=== PATIENT | female | born 1995 | race Caucasian/White ===

== ENCOUNTER 2020-02-22 09:02 | Outpatient (REF) | payer OTHER, MEDICAID, SELFPAY ==
[2020-02-22 10:20] LABS: SARS COV2 PCR INHOUSE NEGATIVE (Negative)
== END 2020-02-22 09:03 | disposition home or self-care (01) ==
LOC: HO.LAB 09:02
PROVIDERS: PCP Family Medicine; Visit Provider Internal Medicine
DX: Z20.828 Contact with and (suspected) exposure to other viral communicable diseases (principal)
CPT/HCPCS: 87635

== ENCOUNTER 2020-05-27 08:18 | Outpatient (REF) | payer OTHER, MEDICAID, SELFPAY ==
[2020-05-27 11:14] LABS: Free T4 (Free Thyroxine) 0.55 ng/dL (0.71-1.85); Thyroid Stimulating Hormone 25.58 uIU/mL (0.32-4.0)
== END 2020-05-27 08:19 | disposition home or self-care (01) ==
LOC: HO.10HDL 08:18
PROVIDERS: Visit Provider Internal Medicine Endocrinology, Diabetes & Metabolism
DX: E03.9 Hypothyroidism, unspecified (principal)
CPT/HCPCS: 36415; 84439; 84443

== ENCOUNTER → 2020-06-08 11:32 | Outpatient (BNVA) | payer OTHER, MEDICAID, SELFPAY | PROVIDERS: PCP Family Medicine; Visit Provider Internal Medicine Endocrinology, Diabetes & Metabolism ==

== ENCOUNTER 2020-07-05 11:29 | Outpatient (REF) | payer OTHER, SELFPAY ==
[2020-07-05 12:12] LABS: COVID-19 Test Negative (Negative)
== END 2020-07-05 11:30 | disposition home or self-care (01) ==
LOC: HO.EMPCOV 11:29
PROVIDERS: Visit Provider Internal Medicine
DX: Z20.822 Contact with and (suspected) exposure to COVID-19 (principal)
CPT/HCPCS: 36415; 87635; C9803

== ENCOUNTER 2020-07-29 10:31 | Outpatient (REF) | payer OTHER, MEDICAID, SELFPAY ==
[2020-07-29 14:23] LABS: Free T4 (Free Thyroxine) 1.02 ng/dL (0.71-1.85); Thyroid Stimulating Hormone 3.01 uIU/mL (0.32-4.0); Vitamin D 25-OH Total 16.2 ng/mL (>30)
== END 2020-07-29 10:32 | disposition home or self-care (01) ==
LOC: HO.10HDL 10:31
PROVIDERS: Visit Provider Internal Medicine Endocrinology, Diabetes & Metabolism
DX: E03.9 Hypothyroidism, unspecified (principal); E55.9 Vitamin D deficiency, unspecified
CPT/HCPCS: 36415; 82306; 84439; 84443

== ENCOUNTER → 2020-10-05 11:16 | Outpatient (BNVA) | payer OTHER, MEDICAID, SELFPAY | PROVIDERS: PCP Family Medicine; Visit Provider Surgery ==

== ENCOUNTER 2020-10-25 13:14 | Outpatient (REF) | payer OTHER, MEDICAID, SELFPAY ==
[2020-10-25 09:00] LABS: MANUAL DIFF FLAG NO
[2020-10-25 09:08] LABS: Basophils Percent Auto 0.5 % (0-2); Eosinophils Absolute Auto 0.1 X10*3/uL (0.0-0.4); Eosinophils Percent Auto 0.8 % (0-4); Hemoglobin 12.6 g/dl (12.0-16.0); Imm Gran Abs Auto 0.02 X10*3/uL (0.00-0.03); Imm Gran Pct Auto 0.3 % (0.0-0.4); Lymphocytes Absolute Auto 1.1 X10*3/uL (1.2-4.9); Lymphocytes Percent Auto 17.9 % (20-40); Mean Corpuscular HGB Conc 32.3 g/dl (31.0-35.0); Mean Corpuscular Hemoglobin 26.2 pg (27.0-33.0); Mean Corpuscular Volume 81.1 fL (80-98); Mean Platelet Volume 10.4 fL (9.4-12.3); Monocytes Absolute Auto 0.4 X10*3/uL (0.1-1.2); Monocytes Percent Auto 5.7 % (2-11); Neutrophils Absolute Auto 4.6 X10*3/uL (2.0-8.3); Neutrophils Percent Auto 74.8 % (45-73); Platelet Count 238 X10*3/uL (160-400); Red Blood Count 4.81 X10*6/uL (4.20-5.50); Red Cell Distribution Width 13.3 % (11.0-16.0); White Blood Count 6.1 X10*3/uL (4.8-10.8)
[2020-10-25 09:15] LABS: Estimated Average Glucose 105 mg/dL; Hemoglobin A1c % 5.3 %
[2020-10-25 09:31] LABS: Alanine Aminotransferase 10 U/L (0-31); Albumin Level 4.2 g/dL (3.5-5.0); Alkaline Phosphatase 90 U/L (39-117); Anion Gap 12 (12-20); Aspartate Amino Transferase 16 U/L (5-31); Bilirubin Total 0.8 mg/dL (0.0-1.0); Blood Urea Nitrogen 8 mg/dL (9-16); Carbon Dioxide 23 mmol/L (22-29); Chloride 110 mmol/L (96-108); Cholesterol 139 mg/dL; Estimated Glomerular Filt Rate > 60; Glucose Random 96 mg/dL (60-115); HDL Cholesterol 40 mg/dL; Iron 55 mcg/dL (30-160); LDL Cholesterol Calculated 79 mg/dl; Percent Iron Saturation 16 % (15-50); Potassium 4.1 mmol/L (3.3-5.1); Sodium 141 mmol/L (135-145); Total Iron Binding Capacity 353 mcg/dL (228-428); Total Protein 6.9 g/dL (6.5-8.0); Triglycerides 103 mg/dL; Unsaturated Iron Binding 298 ug/dL
[2020-10-25 09:45] LABS: Ferritin 28 ng/mL (10-122); TSH reflex Free T4 2.23 uIU/mL (0.32-4.0); Vitamin D 25-OH Total 21.9 ng/mL (>30)
[2020-10-25 10:01] LABS: Folate 13.2 ng/mL (> or = 4.0); Vitamin B12 167 pg/mL (200-900)
[2020-11-02 14:07] LABS: PTHI 64
[2020-11-02 14:08] LABS: Calcium (PTHI) 9.3
[2020-11-02 14:10] LABS: Insulin Level Total 13.8
[2020-11-02 14:12] LABS: Zinc 87
[2020-11-02 14:16] LABS: Vitamin B1 7 L
== END 2020-10-25 13:15 | disposition home or self-care (01) ==
LOC: HO.LAB 13:14
PROVIDERS: Visit Provider Surgery
DX: E66.01 Morbid (severe) obesity due to excess calories (principal); E03.8 Other specified hypothyroidism; E06.3 Autoimmune thyroiditis; Z20.822 Contact with and (suspected) exposure to COVID-19
CPT/HCPCS: 36415; 80053; 80061; 82306; 82607; 82728; 82746; 83036; 83525; 83540; 83970; 84425; 84443; 84590; 84630; 85025; 86140

== ENCOUNTER → 2020-10-31 07:48 | Outpatient (BNVA) | payer OTHER, MEDICAID, SELFPAY | PROVIDERS: PCP Family Medicine; Visit Provider Surgery ==

== ENCOUNTER 2020-11-03 09:11 | Outpatient (REF) | payer OTHER, MEDICAID, SELFPAY ==
--- NOTE | ~2020-11-03 | US_ITS ---
EXAMINATION: US COMPLETE ABDOMEN WITH LIVER ELASTOGRAPHY CLINICAL INFORMATION: Obesity COMPARISON: None. TECHNIQUE: Real-time imaging of the abdominal viscera. Noninvasive ultrasound liver fibrosis assessment is performed using Donell ElastPQ point quantification shear wave elastography (pSWE) with a C5-2 MHz transducer. Multiple elastography samples are obtained. FINDINGS: PANCREAS: Normal. ABDOMINAL AORTA: The proximal, middle, and distal aortic segments are normal in caliber. INFERIOR VENA CAVA: Visualized portions are normal. LIVER: Liver echotexture is increased. The liver demonstrates normal in size and contour. No focal lesion or intrahepatic biliary duct dilatation. The right lobe measures 13.7 cm in length. The left lobe measures 8.7 cm in length. Portal flow is normal. Hepatopedal. Shear wave liver elastography median stiffness is 1.4 m/s (reference: normal median stiffness is 1.3 m/s or less). IQR/median stiffness to assess sampling precision is 0.1 (reference: good quality data set is IQR/median stiffness of 0.15 or less). GALLBLADDER: Normal. The gallbladder is physiologically distended without evidence of stones, sludge, polyps, wall thickening or pericholecystic fluid. COMMON BILE DUCT: Normal in caliber measuring 0.3 cm in diameter. RIGHT KIDNEY: Normal. No hydronephrosis. No renal calculi or focal parenchymal lesions. The kidney measures 12 cm in maximum dimension. LEFT KIDNEY: Normal. No hydronephrosis. No renal calculi or focal parenchymal lesions. The kidney measures 12.5 cm in maximum dimension. SPLEEN: Normal. The spleen measures 10 cm in maximum dimension. FREE FLUID: None. US/US abdomen comp w elastography IMPRESSION: 1. Impression: Echogenic liver probably representing fatty infiltration. Otherwise unremarkable exam. 2. Liver elastography: Adequate liver sampling. In the absence of other known clinical signs, rules out compensated chronic liver disease. REFERENCE: Society of Radiologists in Ultrasound Liver Stiffness Thresholds (2020): LIVER STIFFNESS THRESHOLDS: *Liver Stiffness equal or less than 1.3 m/s: High probability of being normal. *Liver Stiffness less than 1.7 m/s: In the absence of other known clinical signs, rules out compensated advanced chronic liver disease. *Liver Stiffness 1.7-2.1 m/s: Suggestive of compensated advanced chronic liver disease but need further test for confirmation. *Liver Stiffness over 2.1 m/s: Rules in compensated advanced chronic liver disease. *Liver Stiffness over 2.4 m/s: Suggestive of clinically significant portal hypertension. QUALITY OF DATA SET: *IQR/Median value equal or less than 0.15 implies a quality data set. *IQR/Median value over 0.15 implies a poor quality data set. SIGNIFICANT CHANGE FROM PRIOR EXAM: Significant change if liver stiffness measurement is 10% or greater from prior exam. OTHER CONSIDERATIONS: The stage of liver fibrosis may be overestimated in the setting of acute hepatitis, liver inflammation, elevated liver function tests, hepatic vascular congestion, obstructive cholestasis, non-fasting state, and infiltrative diseases such as amyloidosis and lymphoma. In some patients with NAFLD, the liver stiffness thresholds for compensated advanced chronic liver disease may be lower. In causes other than viral hepatitis and NAFLD, liver stiffness thresholds are not well established.
--- NOTE | ~2020-11-03 | XR_ITS ---
EXAMINATION: XR CHEST CLINICAL INFORMATION: Morbid obesity. COMPARISON: 12/23/19. TECHNIQUE: 2 views of the chest were obtained. FINDINGS: No significant abnormality is noted involving the heart, lungs, mediastinum, bony thorax or soft tissues. XR/XR chest 2V IMPRESSION: Unremarkable examination.
--- NOTE | ~2020-11-03 | FL_ITS ---
EXAMINATION: XR GI SERIES CLINICAL INFORMATION: Morbid/severe obesity due to excess calories. COMPARISON: None TECHNIQUE: Routine upper GI air-contrast study was performed in upright and lying position. FINDINGS: Following oral administration of thick barium and effervescent granules in upright view, there is normal propagation of bolus from the oral cavity through the esophagus into stomach without any evidence of obstruction, narrowing or stricture. On placing patient supine and prone, there is minimal gastroesophageal reflux but no hiatal hernia. There is increased flocculation of barium and gastric secretions suggestive of hyperacidity. No mucosal erosions or ulceration seen. The duodenal bulb and the sweep are normal. FLUOROSCOPY TIME: 1.5 minutes 28.750 uGy-m2 (microgray-meter squared) FL/FL upper GI series IMPRESSION: Mild gastroesophageal reflux. Suspect hyperacidity. No ulceration seen. No hiatal hernia.
--- NOTE | 2020-11-03 09:18 | ECG_ITS ---
Test Reason : E66.01 Blood Pressure : / mmHG Vent. Rate : 064 BPM Atrial Rate : 064 BPM P-R Int : 124 ms QRS Dur : 084 ms QT Int : 414 ms P-R-T Axes : 012 051 024 degrees QTc Int : 427 ms Normal sinus rhythm Normal ECG When compared with ECG of 23-DEC-2019 14:36, Vent. rate has decreased BY 67 BPM Referred By: Skip Castle Electronically Signed By:PAMELA RODRIGUEZ
[2020-11-03 10:28] LABS: Alanine Aminotransferase 21 U/L (0-31); Albumin Level 4.2 g/dL (3.5-5.0); Alkaline Phosphatase 82 U/L (39-117); Anion Gap 10 (12-20); Aspartate Amino Transferase 27 U/L (5-31); Bilirubin Total 0.3 mg/dL (0.0-1.0); Blood Urea Nitrogen 9 mg/dL (9-16); Carbon Dioxide 23 mmol/L (22-29); Chloride 111 mmol/L (96-108); Estimated Glomerular Filt Rate > 60; Glucose Random 99 mg/dL (60-115); Potassium 3.7 mmol/L (3.3-5.1); Sodium 140 mmol/L (135-145); Total Protein 6.8 g/dL (6.5-8.0)
[2020-11-04 14:11] LABS: Calcium (PTHI) 9.3 mg/dL (8.6-10.2); PTHI 45 pg/mL (14-64)
[2020-11-04 22:18] LABS: Insulin Level Total 12.9 uIU/mL
[2020-11-06 00:36] LABS: Zinc 73 mcg/dL (60-130)
[2020-11-08 20:11] LABS: Vitamin A 39 mcg/dL (38-98)
[2020-11-09 14:27] LABS: Vitamin B1 11 nmol/L (8-30)
== END 2020-11-03 09:12 | disposition home or self-care (01) ==
LOC: HO.US 09:11
PROVIDERS: Internal Medicine Endocrinology, Diabetes & Metabolism; PCP Family Medicine; Visit Provider Surgery
DX: Z01.818 Encounter for other preprocedural examination (principal); E66.01 Morbid (severe) obesity due to excess calories; E03.8 Other specified hypothyroidism; E06.3 Autoimmune thyroiditis; K21.9 Gastro-esophageal reflux disease without esophagitis
CPT/HCPCS: 36415; 71046; 74240; 76705; 76981; 80053; 83525; 83970; 84425; 84590; 84630; 93005

== ENCOUNTER → 2020-11-04 09:14 | Outpatient (BNVA) | payer OTHER, MEDICAID, SELFPAY | PROVIDERS: PCP Family Medicine; Visit Provider Internal Medicine Endocrinology, Diabetes & Metabolism ==

== ENCOUNTER → 2020-11-16 08:16 | Outpatient (BNVA) | payer OTHER, MEDICAID, SELFPAY | PROVIDERS: PCP Family Medicine; Visit Provider Dietitian, Registered | DX: E66.01 Morbid (severe) obesity due to excess calories (principal); Z68.38 Body mass index [BMI] 38.0-38.9, adult | CPT/HCPCS: 97802 ==

== ENCOUNTER → 2020-11-30 08:02 | Outpatient (BNVA) | payer OTHER, MEDICAID, SELFPAY | PROVIDERS: PCP Family Medicine; Visit Provider Surgery ==

== ENCOUNTER → 2020-12-14 07:09 | Outpatient (BNVA) | payer OTHER, MEDICAID, SELFPAY | PROVIDERS: PCP Family Medicine; Visit Provider Surgery ==

== ENCOUNTER 2020-12-27 09:56 | Outpatient (REF) | payer OTHER, MEDICAID, SELFPAY ==
[2020-12-29 14:56] LABS: H Pylori Breath Test NOT DETECTED (NOT DETECTED)
== END 2020-12-27 09:57 | disposition home or self-care (01) ==
LOC: CF 09:56
PROVIDERS: Visit Provider Surgery
DX: E66.01 Morbid (severe) obesity due to excess calories (principal); E06.3 Autoimmune thyroiditis; E03.8 Other specified hypothyroidism
CPT/HCPCS: 83013

== ENCOUNTER → 2020-12-30 13:27 | Outpatient (BNVA) | payer OTHER, MEDICAID, SELFPAY | PROVIDERS: PCP Family Medicine; Visit Provider Physician Assistant ==

== ENCOUNTER 2021-01-12 07:28 | Inpatient (IN) | payer OTHER, MEDICAID, SELFPAY ==
[2020-12-27 13:53] VITALS: BMI 35.9
[2020-12-31 10:28] LABS: MANUAL DIFF FLAG NO
[2020-12-31 10:40] LABS: Basophils Percent Auto 0.7 % (0-2); Eosinophils Absolute Auto 0.1 X10*3/uL (0.0-0.4); Eosinophils Percent Auto 1.2 % (0-4); Hematocrit 39.1 % (37-47); Hemoglobin 12.7 g/dl (12.0-16.0); Imm Gran Abs Auto 0.01 X10*3/uL (0.00-0.03); Imm Gran Pct Auto 0.2 % (0.0-0.4); Lymphocytes Absolute Auto 1.7 X10*3/uL (1.2-4.9); Lymphocytes Percent Auto 29.1 % (20-40); Mean Corpuscular HGB Conc 32.5 g/dl (31.0-35.0); Mean Corpuscular Hemoglobin 26.3 pg (27.0-33.0); Mean Platelet Volume 10.5 fL (9.4-12.3); Monocytes Absolute Auto 0.3 X10*3/uL (0.1-1.2); Monocytes Percent Auto 5.3 % (2-11); Neutrophils Absolute Auto 3.7 X10*3/uL (2.0-8.3); Neutrophils Percent Auto 63.5 % (45-73); Platelet Count 266 X10*3/uL (160-400); Red Blood Count 4.83 X10*6/uL (4.20-5.50); Red Cell Distribution Width 13.7 % (11.0-16.0); White Blood Count 5.8 X10*3/uL (4.8-10.8)
[2020-12-31 10:42] LABS: Estimated Average Glucose 97 mg/dL; INTERNATIONAL NORM RATIO 1.1 (0.9-1.1)
[2020-12-31 10:45] LABS: Partial Thromboplastin Time 36.6 SEC (24.1-38.0)
[2020-12-31 10:56] LABS: Alanine Aminotransferase 15 U/L (0-31); Albumin Level 4.3 g/dL (3.5-5.0); Alkaline Phosphatase 81 U/L (39-117); Anion Gap 12 (12-20); Aspartate Amino Transferase 15 U/L (5-31); Bilirubin Total 0.5 mg/dL (0.0-1.0); Blood Urea Nitrogen 10 mg/dL (9-16); C Reactive Protein 0.56 mg/dL (< or = 0.50); Calcium 9.1 mg/dL (8.4-10.2); Carbon Dioxide 21 mmol/L (22-29); Chloride 112 mmol/L (96-108); Cholesterol 147 mg/dL; Creatinine Clr Calc Pharmacy 118.2; Estimated Glomerular Filt Rate > 60; Glucose Random 96 mg/dL (60-115); HDL Cholesterol 40 mg/dL; LDL Cholesterol Calculated 93 mg/dl; Potassium 3.8 mmol/L (3.3-5.1); Sodium 141 mmol/L (135-145); Total Protein 6.9 g/dL (6.5-8.0); Triglycerides 70 mg/dL
[2021-01-02 17:57] LABS: Insulin Level Total 10.2 uIU/mL
--- NOTE | 2021-01-11 10:31 | P.CONAN_ITS ---
Documented by User: Jes Rios NP 01/11/21 10:32 HPI - Anesthesia Eval Consult details Narrative: 25yo F for Gastrectomy Sleeve, EGD, Poss Diaphragmatic Hernia, Poss Ventral Hernia, Poss open PMFSH Active Problems Active Problems: All Active Problems (Updated 12/27/20 @ 13:53 by Nieves Golden RN) BMI 38.0-38.9,adult (Acute) Vitamin B12 deficiency (Acute) Adjustment disorder, unspecified (Acute) Vitamin B1 deficiency (Acute) Vitamin A deficiency (Acute) Obesity (Acute) BMI 37.0-37.9, adult (Acute) Morbid obesity (Acute) Vitamin D deficiency (Acute) Obesity (BMI 30-39.9) (Acute) Hypothyroidism (Acute) Past Medical History Medical History (Updated 12/27/20 @ 13:53 by Nieves Golden RN) Asthma COVID-19 vaccine series completed History of postoperative nausea Hypothyroidism Morbid obesity Obesity (BMI 30-39.9) Vitamin D deficiency Family History Family History (Updated 06/08/20 @ 09:20 by JONO Harris) Father Diabetes mellitus HTN (hypertension) Mother Hirsutism Low TSH level Elevated cortisol level Surgical History Surgical History (Updated 12/27/20 @ 08:35 by Nieves Golden RN) Hx of section Hx of knee surgery Social History Social History (Updated 12/27/20 @ 13:54 by Nieves Golden RN) Household Members: Spouse and Children Housing: House Are you a primary director career services to a significant other at home: No Do you presently have visiting nurse or other home services: No Patient Tobacco Use Status: Never used Tobacco Use of substances other than those prescribed or required for medical reasons: No Are you DNR?: No Advance Directives: No Advance Directives Information Provided: No (does not have official HCP) Advance Directives on File: No Recently lost weight without trying: No Eating poorly because of decreased appetite: No Nutrition Risks: No Nutritional Risk Patient : No FDLMP: 12/26/20 : No Poor oral hygiene: No Meds Allergies Allergy/AdvReac Type Severity Reaction Status Date / Time No Known Allergies Allergy Verified 01/12/21 08:40 [No Known Allergies*] Home Medications Medication Instructions Recorded Confirmed Last Taken Type albuterol sulfate 90 mcg/actuation 2 puff INHALATION Q6H PRN 10/05/20 12/27/20 Unknown History aerosol inhaler Exam Exam Date and Time: January 11, 2021 1031 Height,Weight and Vital Signs: Height 5 ft 3.5 in Weight 93.44 kg Pertinent Lab Results Pertinent Lab Results: Laboratory Tests 12/31/20 12/31/20 12/31/20 09:44 09:44 09:44 WBC 5.8 RBC 4.83 Hgb 12.7 Hct 39.1 MCV 81.0 MCH 26.3 L MCHC 32.5 RDW 13.7 Plt Count 266 MPV 10.5 Immature Gran % (Auto) 0.2 Neut % (Auto) 63.5 Lymph % (Auto) 29.1 [place] % (Auto) 5.3 Eos % (Auto) 1.2 Baso % (Auto) 0.7 Lymph # (Auto) 1.7 [place] # (Auto) 0.3 Eos # (Auto) 0.1 Baso # (Auto) 0.0 Abs Immat Gran (auto) 0.01 Absolute Neuts (auto) 3.7 Absolute Nucleated RBC 0.000 Nucleated RBC % (auto) 0.0 PT 12.0 INR 1.1 APTT 36.6 Sodium 141 Potassium 3.8 Chloride 112 H Carbon Dioxide 21 L Anion Gap 12 BUN 10 Creatinine 0.79 Estim Creat Clear Calc 118.2 Estimated GFR > 60 Random Glucose 96 Estimat Average Glucose Hemoglobin A1c % Total Insulin Calcium 9.1 Total Bilirubin 0.5 AST 15 D ALT 15 Alkaline Phosphatase 81 C-Reactive Protein 0.56 H Total Protein 6.9 Albumin 4.3 Triglycerides 70 Cholesterol 147 LDL Cholesterol, Calc 93 HDL Cholesterol 40 TSH 3.30 Blood Type Antibody Screen 12/31/20 12/31/20 12/31/20 09:44 09:44 09:49 WBC RBC Hgb Hct MCV MCH MCHC RDW Plt Count MPV Immature Gran % (Auto) Neut % (Auto) Lymph % (Auto) [place] % (Auto) Eos % (Auto) Baso % (Auto) Lymph # (Auto) [place] # (Auto) Eos # (Auto) Baso # (Auto) Abs Immat Gran (auto) Absolute Neuts (auto) Absolute Nucleated RBC Nucleated RBC % (auto) PT INR APTT Sodium Potassium Chloride Carbon Dioxide Anion Gap BUN Creatinine Estim Creat Clear Calc Estimated GFR Random Glucose Estimat Average Glucose 97 Hemoglobin A1c % 5.0 Total Insulin 10.2 Calcium Total Bilirubin AST ALT Alkaline Phosphatase C-Reactive Protein Total Protein Albumin Triglycerides Cholesterol LDL Cholesterol, Calc HDL Cholesterol TSH Blood Type O Positive Antibody Screen NEGATIVE Narrative Narrative: EKG 10/2020 Vent. Rate : 064 BPM ? ? Atrial Rate : 064 BPM ?? P-R Int : 124 ms? QRS Dur : 084 ms ? ? QT Int : 414 ms ? ? ? P-R-T Axes : 012 051 024 degrees ?? QTc Int : 427 ms ? Normal sinus rhythm Normal ECG When compared with ECG of 23-DEC-2019 14:36, Vent. rate has decreased BY? 67 BPM Assessment and Plan Assessment Anesthesia Assessment: Chart Reviewed Documented by User: Kristel Julian MD 01/12/21 09:41 [facility] Past Medical History Medical History (Updated 12/27/20 @ 13:53 by Nieves Golden RN) Asthma COVID-19 vaccine series completed History of postoperative nausea Hypothyroidism Morbid obesity Obesity (BMI 30-39.9) Vitamin D deficiency Family History Family History (Updated 06/08/20 @ 09:20 by JONO Harris) Father Diabetes mellitus HTN (hypertension) Mother Hirsutism Low TSH level Elevated cortisol level Family history of problems with anesthesia: No Surgical History Surgical History (Updated 12/27/20 @ 08:35 by Nieves Golden RN) Hx of section Hx of knee surgery History of Problems with Anesthesia: No Social History Social History (Updated 12/27/20 @ 13:54 by Nieves Golden RN) Household Members: Spouse and Children Housing: House Are you a primary director career services to a significant other at home: No Do you presently have visiting nurse or other home services: No Patient Tobacco Use Status: Never used Tobacco Use of substances other than those prescribed or required for medical reasons: No Are you DNR?: No Advance Directives: No Advance Directives Information Provided: No (does not have official HCP) Advance Directives on File: No Recently lost weight without trying: No Eating poorly because of decreased appetite: No Nutrition Risks: No Nutritional Risk Patient : No FDLMP: 12/26/20 : No Poor oral hygiene: No Meds Allergies Allergy/AdvReac Type Severity Reaction Status Date / Time No Known Allergies Allergy Verified 01/12/21 08:40 [No Known Allergies*] Home Medications Medication Instructions Recorded Confirmed Last Taken Type albuterol sulfate 90 mcg/actuation 2 puff INHALATION Q6H PRN 10/05/20 12/27/20 Unknown History aerosol inhaler Exam Height,Weight and Vital Signs: Height 5 ft 3.5 in Weight 93.44 kg Vital Signs Temp Pulse Resp BP Pulse Ox 01/12/21 08:50 97.7 F 73 16 114/66 98 Pertinent Lab Results Pertinent Lab Results: Laboratory Tests 12/31/20 12/31/20 12/31/20 09:44 09:44 09:44 WBC 5.8 RBC 4.83 Hgb 12.7 Hct 39.1 MCV 81.0 MCH 26.3 L MCHC 32.5 RDW 13.7 Plt Count 266 MPV 10.5 Immature Gran % (Auto) 0.2 Neut % (Auto) 63.5 Lymph % (Auto) 29.1 [place] % (Auto) 5.3 Eos % (Auto) 1.2 Baso % (Auto) 0.7 Lymph # (Auto) 1.7 [place] # (Auto) 0.3 Eos # (Auto) 0.1 Baso # (Auto) 0.0 Abs Immat Gran (auto) 0.01 Absolute Neuts (auto) 3.7 Absolute Nucleated RBC 0.000 Nucleated RBC % (auto) 0.0 PT 12.0 INR 1.1 APTT 36.6 Sodium 141 Potassium 3.8 Chloride 112 H Carbon Dioxide 21 L Anion Gap 12 BUN 10 Creatinine 0.79 Estim Creat Clear Calc 118.2 Estimated GFR > 60 Random Glucose 96 Estimat Average Glucose Hemoglobin A1c % Total Insulin Calcium 9.1 Total Bilirubin 0.5 AST 15 D ALT 15 Alkaline Phosphatase 81 C-Reactive Protein 0.56 H Total Protein 6.9 Albumin 4.3 Triglycerides 70 Cholesterol 147 LDL Cholesterol, Calc 93 HDL Cholesterol 40 TSH 3.30 Blood Type Antibody Screen 12/31/20 12/31/20 12/31/20 09:44 09:44 09:49 WBC RBC Hgb Hct MCV MCH MCHC RDW Plt Count MPV Immature Gran % (Auto) Neut % (Auto) Lymph % (Auto) [place] % (Auto) Eos % (Auto) Baso % (Auto) Lymph # (Auto) [place] # (Auto) Eos # (Auto) Baso # (Auto) Abs Immat Gran (auto) Absolute Neuts (auto) Absolute Nucleated RBC Nucleated RBC % (auto) PT INR APTT Sodium Potassium Chloride Carbon Dioxide Anion Gap BUN Creatinine Estim Creat Clear Calc Estimated GFR Random Glucose Estimat Average Glucose 97 Hemoglobin A1c % 5.0 Total Insulin 10.2 Calcium Total Bilirubin AST ALT Alkaline Phosphatase C-Reactive Protein Total Protein Albumin Triglycerides Cholesterol LDL Cholesterol, Calc HDL Cholesterol TSH Blood Type O Positive Antibody Screen NEGATIVE Laboratory Results - last 24 hr 01/12/21 01/12/21 08:35 08:40 Urine Test NEGATIVE COVID-19 (BRADEN) Negative COVID-19 Clin Com See Note Airway Mallampati Class: II TM Dist: >3cm Neck ROM: Full Loose/Missing/Broken Teeth: No Heart: RRR + ?systolic murmur Lungs: CTAB Assessment and Plan Assessment Anesthesia Assessment: Anesthesia Plan Discussed Final Anesthetic Review Family History of Problems with Anesthesia: No History of Problems with Anesthesia: No NPO: Yes ASA Class: III Final Preanesthetic Review: No Changes in Pt Med Stat, Meds/Allgs Chart Reviewed, Consent Obtained/Reviewed and Anes Risks/Benef Reviewed Patient Risk: Intermediate Procedure Risk: Intermediate Assessment/Block/Sedation in SS: Assess/Block/Sedation- Anesthetic Plan Anesthetic Plan: GA Disposition: Standard PACU
--- NOTE | 2021-01-11 20:43 | MHC.SHP ---
Pre-Procedural Eval Section A Date of Service: 01/11/21 The patient is an INPATIENT: Yes The History & Physical has been completed within 30 days and I have reviewed it.: No Section B Chief Complaint: Obesity Relevant Family History (Specify if Yes): No Relevant Social History: None Present Medications: see Short Stay Collaborative assessment Medical History: No relevant PMH History of Previous Operations: No relevant previous surgery Allergies: Allergies Allergy/AdvReac Type Severity Reaction Status Date / Time No Known Allergies Allergy Unverified 10/05/20 14:23 [No Known Allergies*] Review of Systems Sugical H&P ROS: Negative: Constitution, Cardiovascular, Respiratory, Neurological, Psychiatric, Hem-Onc, Allergic/Immunologic, Gastrointestinal, Genitourinary, Musculoskeletal, Integumentary, Endocrine and Eyes/Ears/Nose/Throat Exam Surgical H&P Exam: Normal: HEENT, Normal: Heart, Normal: Lungs, Normal: Extremities, Normal: Abdomen, Normal: Skin and Normal: Neurological Plan Diagnosis/Plan: Unchanged I have reviewed the history and physical and performed a pertinent physical examination on my patient. No changes have occurred unless specified.
[2021-01-12] VITALS (13 sets, daily range): BP systolic 114–137; BP diastolic 66–92; PULSE 72–102; RESP 16–20; TEMP 36.3–37.1; O2SAT 96–100
[2021-01-12 09:01] LABS: UPreg QC Valid YES; Urine Pregnancy NEGATIVE (NEGATIVE)
[2021-01-12] MEDS: Scopolamine 1.5 MG PATCH.TD.3 TRANSDERMA (09:07)
[2021-01-12 09:10] LABS: COVID-19 Test Negative (Negative)
[2021-01-12] MEDS: Lactated Ringers 1,000 ML 999 ML IV (09:27)
[2021-01-12] MEDS: Lactated Ringers 1,000 ML 100 ML IVCONT (09:28)
--- NOTE | 2021-01-12 12:30 | P.BOP_ITS ---
Brief Operative Note Date of Service: 01/12/21 Pre-op diagnosis: Severe obesity with comorbidities (see below) Post-op diagnosis: same Procedure: INITIAL PATIENT BMI ON PRESENTATION AT OUR OFFICE: 40 kg/m2 LAST BMI BEFORE SURGERY: 35.9 kg/m2 COMORBIDITIES: hypothyroidism, asthma, GERD, liver steatosis The patient participated in an intensive weekly lifestyle ?intervention and exercise program during which the patient ?has lost between the initial office visit and the last preoperative visit 24.8 lbs, or 10.79% of initial actual body weight. The patient met the BMI-criteria for bariatric surgery based on the BMI on initial presentation. The patient should not be penalized for achieving such weight loss because ?it is not sustainable long-term without surgical intervention and it was achieved in preparation for bariatric surgery ?under my direction and based on my published research ([email or web address] and? [email or web address]/article/[email or web address])58730-X/pdf ) ?that a 10% preoperative weight loss improves long-term weight loss after surgery and reduces perioperative complications.? Insurance carriers such as [employer] [facility] [facility] have endorsed my recommendations ?and have included in their policies criteria to include a 10% preoperative weight loss requirement. PROCEDURE: Esophago-gastroscopy,laparoscopic sleeve gastrectomy and laparoscopic gastropexy INDICATIONS: This is a 25 year-old female who was electively scheduled for laparoscopic, possibly open sleeve gastrectomy. The risks and complications of the procedure were discussed with the patient in advance, particularly the possibility of ; pulmonary embolism; staple line leak; bleeding; GERD; cardiac, pulmonary, or renal complications; as well as long-term problems such as insufficient weight loss, vitamin deficiency, strictures, or ulcers. The patient understood all the risks, and was in agreement to proceed with surgery. DESCRIPTION OF PROCEDURE: After informed consent was obtained from the patient, the patient was given preoperative antibiotics, and was transferred to the operating room. After successful induction of general anesthesia, pneumatic compressive devices were placed on both lower extremities. An upper endoscopy was performed next. The oropharynx and esophagus appeared to be within normal limits. There was no diaphragmatic hernia present consistent with the findings of the preoperative upper GI. The stomach was entered. Then after all fluid and air were suctioned and the stomach was fully decompressed, the scope was withdrawn and secured in the mid esophagus. The patient was then prepped and draped in the usual sterile manner, and abdominal access was established at the right upper quadrant with the Franklin technique. A 12 mm blunt port was inserted, and the abdomen was insufflated with CO2 to a pressure of 15 mmHg. Under direct visualization, additional ports were placed, specifically two 5 mm Versi-step ports to the left upper quadrant, and a 5 mm Versi-Step port to the right upper quadrant. 1% lidocaine plain was used to infiltrate all port sites as well as all fascia defects. Following that, the patient was placed in a steep reverse Trendelenburg position. An additional 5 mm port was placed to the right flank for the Mediflex retractor that was used to retract the left lobe of the liver. The gastro-esophageal fat pad was opened with the ultrasonic device (Thunderbeat, Olympus) and the anterior esophagus and hiatus were exposed. The angle of His was opened with the ultrasonic device the fundus of the stomach from any diaphragmatic and splenic attachments. I then opened the gastrocolic ligament between the transverse colon and the greater curvature of the stomach with the ultrasonic device to enter the lesser sac and facilitate the ligation of the short gastric vessels. I started at a mid-point along the greater curvature and using the Thunderbeat, all short gastric vessels were divided all the way to the angle of His until the left dayanna was completely dissected at its entirety. I then divided the gastro-colic ligament distally to a distance of about 3-4 cm proximal to the esophagus. The stomach was then divided transversely with one Endo GURPREET-45 purple and four GURPREET-60 articulating orange loads using the AEON stapler and loads. Every effort was made that the gastric sleeve had a tubular shape and an even caliber throughout. Once the sleeve resection was completed, the staple line of the gastric sleeve was reinforced with Hemoclips. The resected stomach was retrieved without difficulty from the Franklin port. A gastropexy was then performed in order to prevent postoperative GERD and partial gastric volvulus. Several interrupted 2.0 Surgidac sutures were placed between the sleeve's staple line and the previously divided greater omentum and gastro-colic ligament using the Endo-Stitch device. ?An upper endoscopy was performed. There was no narrowing at the GE junction. The scope was easily advanced all the way to the pylorus which was clearly visualized. There was no narrowing anywhere and the sleeve's caliber was even throughout. The sleeve's staple line was inspected and there was no evidence of ischemia, bleeding or dehiscence. At that point the gastroscope was withdrawn from the patient?s mouth while we were decompressing the bowel and the stomach from any remaining air. I looked into the lesser sac to see how the sleeve was situating and it was situating well. There was no bleeding from the staple line, spleen, or short gastric vessels. The Mediflex retractor was removed, and the undersurface of the liver was inspected and there was no bleeding. The patient was placed in supine position. I closed the fascial defect of the 12 mm port site with a figure of eight #1 Polysorb suture. Then 100 cc 0.25 % Marcaine plain with 10 mg of Dexamethasone were used to infiltrate the fascial closure as well as all skin incisions. At this point, the abdomen was deflated, all ports were removed under direct vision, and no bleeding was noted from any of the port sites. The skin incisions were irrigated with saline and were closed with 4-0 absorbable monofilament sutures. Steri-Strips and OpSites were used to cover all incisions. The patient was extubated and was transferred in stable condition to the recovery room for further care. I was present and performed all phelps parts of the procedure. Yovani was the rn first assist. There were no residents to assist with this case. Vernon Castle MD, PhD, FACS Surgeon: Skip Castle MD Anesthesia: GETA, local and other (TAP blocl) Was an Clinical Services Manager used for this Procedure?: Yes Clinical Services Manager: Cat Pina Estimated blood loss (mL): 10 IV fluids (mL): 2,800 Urine output (mL): 0 (No Hennessy to record) Pathology: other (Stomach) Condition: stable Disposition: PACU
--- NOTE | 2021-01-12 12:35 | PM.PNGS ---
Subjective Subjective Date of Service: 01/13/21 Interval history: Patient had mild incisional pain but was able to ambulate and use the incentive spirometer. She is tolerating phase 1 bariatric diet.. Physical Exam Vital Signs: Vital Signs: Last Vital Signs Temp 97.7 F 01/12/21 08:50 Pulse 73 01/12/21 08:50 Resp 16 01/12/21 08:50 BP 114/66 01/12/21 08:50 Pulse Ox 98 01/12/21 08:50 Body Mass Index 35.9 GI: Inspection: Yes normal to inspection and Yes incision (clean, dry and intact) Extrem: Right lower extremity: normal to inspection (no calf tenderness) Left lower extremity: normal to inspection (no calf tenderness) Procedures Date of Service Date of Service: 01/13/21 Progress Note: A&P Assessment and plan (1) Obesity: Status: Acute (2) BMI over 35: Status: Acute (3) S/P laparoscopic sleeve gastrectomy: Status: Acute Assessment and Plan: s/p laparoscopic sleeve gastrectomy and gastropexy Doing well Check am labs. If OK, will discharge home (4) Hypothyroidism: Status: Acute (5) Asthma: Status: Acute (6) Steatosis, liver: Status: Acute Fall Risk Details Current Medications: Current Medications Generic Name Dose Route Start Last Admin Trade Name Freq PRN Reason Stop Dose Admin Albuterol Sulfate 2.5 mg 01/12/21 08:43 Albuterol Sulfate (0.083%) 2.5 Mg/3 Ml Vial.Neb INHALE ONCE PRN Shortness of Breath/Wheezing Fentanyl 25 mcg 01/12/21 10:06 Fentanyl Citrate/Pf 100 Mcg/2 Ml Vial IVPUSH Q5M PRN Pain, Moderate (Pain Scale 4-6 Protocol Hydromorphone HCl 0.25 mg 01/12/21 10:06 Hydromorphone Hcl 0.5 Mg/0.5 Ml Syringe IVPUSH Q5M PRN Pain, Severe (Pain Scale 7-10) Protocol Lactated Ringer's 1,000 mls @ 100 mls/hr 01/12/21 08:45 01/12/21 09:28 Lr IVCONT 100 mls/hr .Q10H JANY Administration Promethazine HCl 6.25 mg/ 50.25 mls @ 201 mls/hr 01/12/21 10:06 Sodium Chloride IV ONCE PRN Nausea and Vomiting Ondansetron HCl 4 mg 01/12/21 10:06 Ondansetron Hcl 4 Mg/2 Ml Vial IVPUSH ONCE PRN Nausea and Vomiting Time Spent With Patient Time: Total time spent is greater than 50% in coordination of care (as documented) at patient's floor/unit and/or counseling patient: Time with patient: less than 15 minutes Quality Stroke Does the patient have a stroke diagnosis?: No VTE Prior VTE?: No VTE Risk Level:: Surgical - moderate VTE Device Contraindication: N/A - Device Ordered VTE Drug Contraindication: Treatment Not Indicated
--- NOTE | 2021-01-12 12:45 | P.DS_ITS ---
DS: Providers Provider Date of Service: 01/13/21 Date of admission: 01/12/21 07:28 Primary care physician: Jonas Tirado MD DS: Diagnosis Discharge Diagnosis (1) Obesity: Status: Acute (2) BMI over 35: Status: Acute (3) S/P laparoscopic sleeve gastrectomy: Status: Acute (4) Hypothyroidism: Status: Acute (5) Asthma: Status: Acute (6) Steatosis, liver: Status: Acute DS: Medications Discharge Medications Home Medications: Home Medications Medication Instructions Recorded Confirmed albuterol sulfate 90 mcg/actuation 2 puff INHALATION Q6H PRN 10/05/20 12/27/20 aerosol inhaler Previous Rx's Medication Instructions Recorded cholecalciferol (vitamin D3) 125 125 mcg PO DAILY #30 cap 10/31/20 mcg (5,000 unit) capsule mecobalamin (vitamin B12) 1,000 1,000 mcg SUBLINGUAL DAILY #30 tab 10/31/20 mcg disintegrating tablet,sublingual Synthroid 125 mcg tablet 125 mcg PO DAILY 30 Days #30 tab NS 11/04/20 (levothyroxine) phentermine 11.25 mg-topiramate ER 1 cap PO DAILY 30 Days #30 cap 11/04/20 69 mg capsule,[id number] mphas (Qsymia) thiamine HCl (vitamin B1) 100 mg 100 mg PO DAILY #30 tab 11/30/20 tablet vitamin A palmitate 10,000 unit 10,000 unit PO .COMPLEX #30 cap 11/30/20 capsule ondansetron HCl 4 mg tablet 4 mg PO Q12H #20 tab 12/14/20 (Zofran) pantoprazole 40 mg tablet,delayed 40 mg PO DAILY #30 tab 12/14/20 release polyethylene glycol 3350 17 gram 17 g PO DAILY #14 ea 12/14/20 oral powder packet (Miralax) sucralfate 100 mg/mL oral 10 ml PO BID #400 ml 12/14/20 suspension DS: Summary Hospital Course Hospital Course: ADMITTING DIAGNOSIS: morbid obesity, asthma, hypothyroid DISCHARGE DIAGNOSIS: same, s/p laparoscopic sleeve gastrectomy PAST SURGICAL HISTORY: , knee surgery PROCEDURE: upper endoscopy, laparoscopic sleeve gastrectomy DISCHARGE SUMMARY: History of Present Illness: The patient is a 25 year-old woman with a BMI of 40 kg/m2 and associated co-morbidities as described above. The patient had extensive work-up,lost 21.8 lbs preoperatively and was electively scheduled for laparoscopic, possible open sleeve gastrectomy and gastropexy. Risks and complications of the surgery were discussed with the patient in advance, particularly the possibility of , pulmonary embolism, anastomotic leak, bleeding, bowel injury, GERD, cardiac, renal or pulmonary complications. The patient understood all the risks and was in agreement with the surgical plan. Hospital Course: The patient underwent an uneventful laparoscopic sleeve gastrectomy with gastropexy on the day of admission. Postoperatively, the patient was transferred to the surgical floor. The patient received IV Acetaminophen and IV dilaudid for pain control. Patient was started on bariatric phase 1 diet POD #0. On postoperative day one, the patient was feeling well without nausea, vomiting, fevers, or tachycardia. The patient had some mild incisional pain and the abdomen was soft. On the morning of postoperative day one, the patient was continued on 1 ounce of water or ice every half hour. During the day, the patient did fairly well, having some incisional pain, but able to ambulate adequately and to tolerate liquids well. Since the patient is doing well, we decided that the patient was ready to be dis charged. The patient was given instructions to follow-up with me next week and to call my office for any fever over 101, persistent abdominal pain, nausea, vomiting, GERD, symptoms of DVT such as calf tenderness, or leg swelling, or pulmonary embolism such as chest pain or shortness of breath. The patient was also instructed to drink 40-60 ounces of liquids per day using the 1-ounce cups. The patient had been given prescriptions for Tylenol for pain, Zofran prn for nausea, and pantoprazole and carafate previously. The patient was encouraged to ambulate and use the incentive spirometer. The patient was allowed to shower, but no baths, and encouraged to stay active at home. All of these instructions were given to the patient personally. All questions were answered and the patient understood all instructions, the instructions were also given to the patient in print. Time Spent with Patient Time attestation: Total time spent providing and/or coordinating discharge services: Discharge coordination time: Less than 30 minutes Quality: Stroke Does the patient have a stroke diagnosis?: No Physical Exam Vital Signs: Vital Signs: Last Vital Signs Temp 98.2 F 01/12/21 12:35 Pulse 89 08/26/21 12:35 Resp 16 01/12/21 12:35 BP 132/89 01/12/21 12:35 Pulse Ox 100 01/12/21 12:35 Body Mass Index 35.9 DS: Data Data Completed and Pending Pending studies at discharge: Pending at discharge 01/12/21 11:40 Surgical [PTH] Routine Labs on day of discharge: Laboratory Results - last 24 hr 01/12/21 01/12/21 08:35 08:40 Urine Test NEGATIVE COVID-19 ([facility]) Negative COVID-19 Clin Com See Note Discharge Plan Discharge Anticipated Discharge Date/Time: 01/13/21 10:39 Patient Disposition: Home, Self-Care Discharge Diagnosis: s/p sleeve gastrectomy Referrals: Jonas Tirado MD [Primary Care Provider] - 1 Week Discharge Medications: Continued pantoprazole 40 mg tablet,delayed release (DR/EC) 40 mg PO DAILY Qty: 30 RF: 2 sucralfate 100 mg/mL suspension 10 ml PO BID Qty: 400 RF: 2 ondansetron HCl [Zofran] 4 mg tablet 4 mg PO Q12H Qty: 20 RF: 0 levothyroxine [Synthroid] 125 mcg tablet 125 mcg PO DAILY 30 Days Qty: 30 RF: 5 albuterol sulfate 90 mcg/actuation HFA aerosol inhaler 2 puff inhalation Q6H PRN (Reason: wheezing) RF: 0 Discontinued polyethylene glycol 3350 [Miralax] 17 gram powder in packet 17 g PO DAILY Qty: 14 RF: 0 Qsymia 11.25-69 mg capsule, ER multiphase 24 hr 1 cap PO DAILY 30 Days Qty: 30 RF: 4 cholecalciferol (vitamin D3) 125 mcg (5,000 unit) capsule 125 mcg PO DAILY Qty: 30 RF: 2 mecobalamin (vitamin B12) 1,000 mcg tablet,disintegrating 1,000 mcg sublingual DAILY Qty: 30 RF: 2 thiamine HCl (vitamin B1) 100 mg tablet 100 mg PO DAILY Qty: 30 RF: 1 vitamin A palmitate 10,000 unit capsule 10,000 unit PO .COMPLEX Qty: 30 RF: 0 Discharge Orders: Discharge Order (Routine); Ordered 01/13/21 Ordered By: Skip Castle Diet: other Activity on Discharge: No heavy lifting Stand Alone Forms: Patient Portal Discharge page Care Plan Goals: weight loss Health Concerns: morbid obesity Plan of Treatment: No tub baths, sex or returning to work until discussed at first post op appointment. No exercise, alcohol, tobacco or illegal drug use. Continue to use incentive spirometer hourly while awake. Walk in home for 5- 10 minutes every 2 hours during the first week. Continue phase 1 diet today and start phase 2 diet tomorrow morning. Follow all instructions in the bariatric handbook and call with any questions. The patient's medical history has been reviewed and they are considered low risk for post op DVT and therefore DVT prophylaxis is not considered necessary. Travel after surgery was reviewed. The patient has not disclosed any travel plans during the first 30 days after surgery and they have been advised that within the first 30 days after surgery any bus, plane, train or car travel over 2 hours in duration is contraindicated due to the possibility of developing blood clots from immobility. Any travel, needs to include periods of ambulation of 10 minutes in duration every 2 hours. The patient was instructed to discuss any plans for travel during this period with their bariatric surgeon. Assessment: stable, s/p sleeve gastrectomy
[2021-01-12 13:01] LABS: Hematocrit 37.5 % (37-47); Hemoglobin 12.3 g/dl (12.0-16.0)
[2021-01-12] MEDS: Famotidine/PF 20 MG/2 ML VIAL IVPUSH ×2 (13:02→20:47)
[2021-01-12] MEDS: ondansetron HCL 4 MG/2 ML VIAL IVPUSH ×2 (13:19→21:49)
[2021-01-12 13:24] LABS: Anion Gap 12 (12-20); Blood Urea Nitrogen 5 mg/dL (9-16); Calcium 8.5 mg/dL (8.4-10.2); Carbon Dioxide 24 mmol/L (22-29); Chloride 109 mmol/L (96-108); Creatinine Clr Calc Pharmacy 127.9; Estimated Glomerular Filt Rate > 60; Glucose Random 117 mg/dL (60-115); Potassium 3.6 mmol/L (3.3-5.1); Sodium 141 mmol/L (135-145)
[2021-01-12] MEDS: Metoclopramide HCl 10 MG/2 ML VIAL IVPUSH (13:28)
[2021-01-12] MEDS: Lactated Ringers 1,000 ML 125 ML IVCONT ×2 (15:30→21:57)
[2021-01-13 03:56] VITALS: BP 131/82; PULSE 68; RESP 16; TEMP 36.1; O2SAT 99
[2021-01-13] MEDS: Levothyroxine Sodium 125 MCG TABLET PO (06:02)
[2021-01-13] MEDS: ondansetron HCL 4 MG/2 ML VIAL IVPUSH (06:04)
[2021-01-13 06:16] LABS: MANUAL DIFF FLAG NO
[2021-01-13] MEDS: Lactated Ringers 1,000 ML 125 ML IVCONT (06:19)
[2021-01-13 06:35] LABS: Hematocrit 36.5 % (37-47); Hemoglobin 12.1 g/dl (12.0-16.0); Imm Gran Abs Auto 0.05 X10*3/uL (0.00-0.03); Imm Gran Pct Auto 0.5 % (0.0-0.4); Mean Corpuscular HGB Conc 33.2 g/dl (31.0-35.0); Mean Corpuscular Hemoglobin 26.9 pg (27.0-33.0); Mean Corpuscular Volume 81.3 fL (80-98); Mean Platelet Volume 10.5 fL (9.4-12.3); Monocytes Absolute Auto 0.5 X10*3/uL (0.1-1.2); Neutrophils Absolute Auto 9.3 X10*3/uL (2.0-8.3); Neutrophils Percent Auto 85.5 % (45-73); Platelet Count 239 X10*3/uL (160-400); Red Blood Count 4.49 X10*6/uL (4.20-5.50); Red Cell Distribution Width 13.2 % (11.0-16.0); White Blood Count 10.8 X10*3/uL (4.8-10.8)
[2021-01-13 06:53] LABS: Anion Gap 11 (12-20); Blood Urea Nitrogen 4 mg/dL (9-16); Calcium 8.9 mg/dL (8.4-10.2); Carbon Dioxide 26 mmol/L (22-29); Chloride 106 mmol/L (96-108); Creatinine Clr Calc Pharmacy 139.4; Estimated Glomerular Filt Rate > 60; Glucose Random 89 mg/dL (60-115); Potassium 4.2 mmol/L (3.3-5.1); Sodium 139 mmol/L (135-145)
[2021-01-13 07:39] VITALS: BP 129/74; PULSE 74; RESP 16; TEMP 36.7; O2SAT 99
[2021-01-13] MEDS: Famotidine/PF 20 MG/2 ML VIAL IVPUSH (09:11)
[2021-01-13] MEDS: 0.9 % Sodium Chloride Flush 3 ML SYRINGE IVFLUSH (09:12)
[2021-01-13] MEDS: Metoclopramide HCl 10 MG/2 ML VIAL IVPUSH (09:21)
--- NOTE | 2021-01-13 10:02 | MHC.CM.PN ---
EMR REVIEWED, PT ADMITTED S/P LAP SLEEVE GASTRECTOMY AND HERNIA REPAIR, CM MET W/PT WHO IS A&OX4, PT REPORTS SHE LIVES W/FIANCE AND CHILDREN, PT IS INDEPENDENT W/ALL CARE, NO DME OR HOME SERVICES, PT VERIFIES PCP AND PT DENIES HAVING A HCP AND IS DECLINING TO COMPLETE ONE AT THIS TIME. D/C PLAN: HOME TODAY SELF-CARE W/OUTPT FOLLOW-UP W/SURGEON, PT WILL CALL FAMILY FOR TRANSPORT PCP: JOSUÉ TURNER
[2021-01-13 10:06] VITALS: O2SAT 98
--- NOTE | 2021-01-13 10:30 | HO.POSTANES ---
Post Anesthesia Evaluation Post Anesthesia Evaluation Vital Signs: Vital Signs Temp Pulse Resp BP Pulse Ox 01/13/21 10:06 98 01/13/21 07:39 98.1 F 74 16 129/74 99 01/13/21 03:56 96.9 F 68 16 131/82 99 01/12/21 22:54 97.5 F 72 16 127/85 97 Anesthesia: General Endotracheal-GETA Mental Status: Awake Pain Control: Satisfactory Nausea/Vomiting: None Hydration: Adequate Anesthesia-Related Issues: No Anes. Related Issues
== END 2021-01-13 10:30 | disposition home or self-care (01) | DRG 403 ==
LOC: HO.SSSA 12:45 → HO.S3 13:00
PROVIDERS: Nurse Practitioner; Physician Assistant; Admitting Provider Surgery; PCP Family Medicine; Visit Provider Surgery
PROC: 0DB64Z3 Excision of Stomach, Percutaneous Endoscopic Approach, Vertical (ICD-10-PCS; CPT 43845; principal; 2021-01-12 10:10)
DX: E66.01 Morbid (severe) obesity due to excess calories (principal); K76.0 Fatty (change of) liver, not elsewhere classified; E03.9 Hypothyroidism, unspecified; K21.9 Gastro-esophageal reflux disease without esophagitis; J45.909 Unspecified asthma, uncomplicated; Z68.35 Body mass index [BMI] 35.0-35.9, adult; Z20.822 Contact with and (suspected) exposure to COVID-19; Z79.890 Hormone replacement therapy; Z79.899 Other long term (current) drug therapy
CPT/HCPCS: 36415; 80048; 80053; 80061; 81025; 83036; 83525; 84443; 85014; 85018; 85025; 85610; 85730; 86140; 86850; 86900; 86901; 87635; 88307; 88342; 99024; A4649; J0131; J0690; J1100; J1170; J2250; J2370; J2405; J2550; J2765; J3010

== ENCOUNTER → 2021-01-18 08:13 | Outpatient (BNVA) | payer OTHER, MEDICAID, SELFPAY | PROVIDERS: PCP Family Medicine; Visit Provider Surgery ==

== ENCOUNTER 2021-02-01 09:29 | Outpatient (REF) | payer OTHER, MEDICAID, SELFPAY ==
[2021-02-01 10:45] LABS: Alanine Aminotransferase 11 U/L (0-31); Albumin Level 4.1 g/dL (3.5-5.0); Alkaline Phosphatase 68 U/L (39-117); Anion Gap 9 (12-20); Aspartate Amino Transferase 14 U/L (5-31); Bilirubin Total 0.6 mg/dL (0.0-1.0); Blood Urea Nitrogen 7 mg/dL (9-16); Calcium 9.7 mg/dL (8.4-10.2); Carbon Dioxide 30 mmol/L (22-29); Chloride 109 mmol/L (96-108); Estimated Glomerular Filt Rate > 60; Glucose Random 90 mg/dL (60-115); Phosphorus 3.4 mg/dL (2.7-4.5); Potassium 4.2 mmol/L (3.3-5.1); Sodium 144 mmol/L (135-145); Total Protein 6.5 g/dL (6.5-8.0)
[2021-02-01 11:06] LABS: Free T4 (Free Thyroxine) 0.65 ng/dL (0.71-1.85); Thyroid Stimulating Hormone 7.53 uIU/mL (0.32-4.0); Vitamin D 25-OH Total 31.1 ng/mL (>30)
[2021-02-01 11:28] LABS: Folate > 20.0 ng/mL (> or = 4.0); Vitamin B12 739 pg/mL (200-900)
[2021-02-03 12:12] LABS: Calcium (PTHI) 9.6 mg/dL (8.6-10.2); PTHI 36 pg/mL (14-64)
== END 2021-02-01 09:30 | disposition home or self-care (01) ==
LOC: HO.LAB 09:29
PROVIDERS: PCP Family Medicine; Visit Provider Internal Medicine
DX: E55.9 Vitamin D deficiency, unspecified (principal); E03.8 Other specified hypothyroidism; E06.3 Autoimmune thyroiditis
CPT/HCPCS: 36415; 80053; 82306; 82607; 82746; 83970; 84100; 84439; 84443

== ENCOUNTER → 2021-03-10 08:06 | Outpatient (BNVA) | payer OTHER, MEDICAID, SELFPAY | PROVIDERS: PCP Family Medicine; Visit Provider Surgery ==

== ENCOUNTER → 2021-04-17 08:09 | Outpatient (BNVA) | payer OTHER, MEDICAID, SELFPAY | PROVIDERS: PCP Family Medicine; Visit Provider Surgery ==

== ENCOUNTER 2021-04-21 09:04 | Outpatient (REF) | payer OTHER, MEDICAID, SELFPAY ==
[2021-04-21 11:04] LABS: Free T4 (Free Thyroxine) 2.27 ng/dL (0.71-1.85); Thyroid Stimulating Hormone 4.64 uIU/mL (0.32-4.0)
[2021-04-21 15:07] LABS: Free T4 (Free Thyroxine) 2.09 ng/dL (0.71-1.85); Thyroid Stimulating Hormone 3.24 uIU/mL (0.32-4.0)
[2021-04-26 12:12] LABS: Triiodothyronine T3 Total 123 ng/dL (76-181)
[2021-04-29 01:27] LABS: FT4 by Equilib. Dialysis 4.7 ng/dL (0.9-2.2)
== END 2021-04-21 09:05 | disposition home or self-care (01) ==
LOC: HO.10HDL 09:04
PROVIDERS: PCP Family Medicine; Visit Provider Nurse Practitioner Gerontology
DX: E03.8 Other specified hypothyroidism (principal); E06.3 Autoimmune thyroiditis
CPT/HCPCS: 36415; 84439; 84443; 84480

== ENCOUNTER → 2021-05-01 07:57 | Outpatient (BNVA) | payer OTHER, MEDICAID, SELFPAY | PROVIDERS: PCP Family Medicine; Visit Provider Internal Medicine ==

== ENCOUNTER 2021-05-02 08:01 | Outpatient (REF) | payer OTHER, MEDICAID, SELFPAY ==
[2021-05-02 08:29] LABS: MANUAL DIFF FLAG NO
[2021-05-02 08:40] LABS: Basophils Percent Auto 0.4 % (0-2); Eosinophils Absolute Auto 0.1 X10*3/uL (0.0-0.4); Hematocrit 37.7 % (37.0-47.0); Hemoglobin 12.3 g/dl (12.0-16.0); Imm Gran Abs Auto 0.01 X10*3/uL (0.00-0.03); Imm Gran Pct Auto 0.2 % (0.0-0.4); Lymphocytes Absolute Auto 1.1 X10*3/uL (1.2-4.9); Lymphocytes Percent Auto 20.5 % (20-40); Mean Corpuscular HGB Conc 32.6 g/dl (31.0-35.0); Mean Corpuscular Hemoglobin 27.5 pg (27.0-33.0); Mean Corpuscular Volume 84.2 fL (80.0-98.0); Mean Platelet Volume 10.6 fL (9.4-12.3); Monocytes Absolute Auto 0.4 X10*3/uL (0.1-1.2); Monocytes Percent Auto 8.3 % (2-11); Neutrophils Absolute Auto 3.6 x10*3/uL (2.0-8.3); Neutrophils Percent Auto 69.6 % (45-73); Platelet Count 200 X10*3/uL (160-400); Red Blood Count 4.48 X10*6/uL (4.20-5.50); White Blood Count 5.2 X10*3/uL (4.8-10.8)
[2021-05-02 09:04] LABS: Alanine Aminotransferase 14 U/L (0-31); Alkaline Phosphatase 68 U/L (39-117); Anion Gap 11 (12-20); Aspartate Amino Transferase 19 U/L (5-31); Bilirubin Total 0.8 mg/dL (0.0-1.0); Blood Urea Nitrogen 9 mg/dL (9-16); Calcium 9.2 mg/dL (8.4-10.2); Carbon Dioxide 26 mmol/L (22-29); Chloride 107 mmol/L (96-108); Cholesterol 135 mg/dL; Estimated Glomerular Filt Rate > 60; Glucose Random 81 mg/dL (60-115); HDL Cholesterol 42 mg/dL; Iron 82 mcg/dL (30-160); LDL Cholesterol Calculated 81 mg/dl; Percent Iron Saturation 28 % (15-50); Potassium 3.8 mmol/L (3.3-5.1); Sodium 140 mmol/L (135-145); Total Iron Binding Capacity 293 mcg/dL (228-428); Total Protein 6.6 g/dL (6.5-8.0); Triglycerides 64 mg/dL; Unsaturated Iron Binding 211 ug/dL
[2021-05-02 09:28] LABS: Free T4 (Free Thyroxine) 1.17 ng/dL (0.71-1.85); HCG Quantitative < 2 mIU/mL; Vitamin D 25-OH Total 27.7 ng/mL (>30)
[2021-05-02 10:17] LABS: Cortisol Random 6.2 ug/dL
[2021-05-03 20:47] LABS: Adrenocorticotropic Hormone 14 pg/mL (6-50)
[2021-05-04 02:36] LABS: Triiodothyronine T3 Total 117 ng/dL (76-181)
[2021-05-04 02:47] LABS: Follicle Stimulating Hormone 4.6 mIU/mL; Lutenizing Hormone 2.6 mIU/mL; Prolactin 5.3 ng/mL
[2021-05-04 04:42] LABS: LDL Cholesterol Direct 73 mg/dL (<100)
[2021-05-04 05:22] LABS: DHEA Sulfate 127 mcg/dL (18-391); Sex Hormone Binding Globulin 47 nmol/L (17-124)
[2021-05-05 23:11] LABS: Zinc 73 mcg/dL (60-130)
[2021-05-06 02:55] LABS: Thyroglobulin Antibodies <1 IU/mL (< or = 1); Thyroid Peroxidase Antibodies 148 IU/mL (<9)
[2021-05-07 10:02] LABS: Testosterone, Free 2.7 pg/mL (0.1-6.4); Testosterone, Total 23 ng/dL (2-45)
[2021-05-08 11:26] LABS: FT4 by Equilib. Dialysis 1.8 ng/dL (0.9-2.2)
[2021-05-09 14:27] LABS: Thyrotropin Receptor Antibody 2.84 IU/L (<=2.00)
[2021-05-10 15:16] LABS: Thyroid Stimulating Immunoglob <89 % baseline (<140)
[2021-05-10 18:41] LABS: Androstenedione 75 ng/dL
[2021-05-11 04:26] LABS: Estradiol Free 2.13 pg/mL; Estradiol, Ultrasensitive 118 pg/mL
== END 2021-05-02 08:02 | disposition home or self-care (01) ==
LOC: HO.10HDL 08:01
PROVIDERS: Visit Provider Internal Medicine
DX: L68.0 Hirsutism (principal); E03.8 Other specified hypothyroidism; E06.3 Autoimmune thyroiditis; Z98.84 Bariatric surgery status; E55.9 Vitamin D deficiency, unspecified
CPT/HCPCS: 36415; 80053; 80061; 82024; 82157; 82306; 82533; 82627; 82670; 82681; 83001; 83002; 83498; 83520; 83540; 83721; 84146; 84270; 84402; 84403; 84439; 84445; 84480; 84630; 84702; 85025; 86376; 86800

== ENCOUNTER 2021-05-11 07:57 | Outpatient (REF) | payer OTHER, MEDICAID, SELFPAY ==
[2021-05-13 12:32] LABS: Cortisol 60 Minute 27.9 mcg/dL; Cortisol Baseline 6.4 mcg/dL
[2021-05-15 20:51] LABS: Adrenocorticotropic Hormone 11 pg/mL (6-50)
== END 2021-05-11 07:58 | disposition home or self-care (01) ==
LOC: HO.MDS 07:57
PROVIDERS: PCP Family Medicine; Visit Provider Internal Medicine
DX: E27.40 Unspecified adrenocortical insufficiency (principal)
CPT/HCPCS: 36415; 82024; 82533; 96374; J0834

== ENCOUNTER 2021-07-24 08:18 | Emergency (ER) | payer OTHER, MEDICAID, SELFPAY ==
--- NOTE | ~2021-07-24 | CT_ITS ---
EXAMINATION: CT HEAD WITHOUT CONTRAST CLINICAL INFORMATION: Syncope. Head trauma. COMPARISON: None TECHNIQUE: Contiguous axial imaging was performed from the skull base to vertex without intravenous administration of contrast. This CT examination was performed using dose optimization techniques as appropriate, variously including the following: *Automated exposure control *Adjustment of mA and/or kV according to patient size (this includes techniques or standardized protocols for targeted exams where dose is matched to indication/reason for exam; i.e. extremities or head) *Use of iterative reconstruction technique DLP: 688 mGy-cm FINDINGS: There is no evidence of acute intracranial hemorrhage or territorial infarction. No abnormal mass effect or midline shift is seen. Gu to white matter differentiation is well preserved. No extra-axial fluid collections are identified. The ventricles are normal in size. There is no abnormal attenuation within the brain parenchyma. The osseous structures and soft tissues are normal. The mastoid air cells and visualized portions of the paranasal sinuses are well aerated. CT/CT head/brain wo con IMPRESSION: No acute intracranial pathology.
[2021-07-24 08:38] VITALS: BP 138/75; PULSE 79; RESP 19; TEMP 36.6; O2SAT 98; BMI 27.3
--- NOTE | 2021-07-24 08:43 | ECG_ITS ---
Test Reason : syncope Blood Pressure : / mmHG Vent. Rate : 078 BPM Atrial Rate : 078 BPM P-R Int : 144 ms QRS Dur : 074 ms QT Int : 390 ms P-R-T Axes : 049 051 035 degrees QTc Int : 444 ms Normal sinus rhythm Normal ECG When compared with ECG of 03-NOV-2020 09:23, No significant change was found Referred By: Generic ED Physician Electronically Signed By:POLO HERNANDEZ MD
[2021-07-24 09:16] LABS: INTERNATIONAL NORM RATIO 1.2 (0.9-1.1); Prothrombin Time 13.2 SEC (9.9-13.0)
[2021-07-24 09:18] LABS: Appearance Urine HAZY; Color Urine YELLOW; Glucose Urine UA NEG (NEG); Leukocyte Esterase Urine NEG (NEG); Nitrite Urine NEG (NEG); Urine Blood NEG (NEG); Urine Ketones NEG (NEG); Urine Protein NEG (NEG-TRACE)
[2021-07-24 09:20] LABS: UPreg QC Valid YES; Urine Pregnancy NEGATIVE (NEGATIVE)
[2021-07-24 09:25] LABS: Anion Gap 10 (12-20); Blood Urea Nitrogen 11 mg/dL (9-16); Calcium 9.5 mg/dL (8.4-10.2); Carbon Dioxide 29 mmol/L (22-29); Chloride 106 mmol/L (96-108); Creatinine Clr Calc Pharmacy 115.8; Estimated Glomerular Filt Rate > 60; Glucose Random 83 mg/dL (60-115); Potassium 4.2 mmol/L (3.3-5.1); Sodium 141 mmol/L (135-145)
[2021-07-24 09:33] LABS: Troponin-I High Sensitivity < 3.5 ng/L (<3.5-17.0)
[2021-07-24 09:48] LABS: Thyroid Stimulating Hormone 3.32 uIU/mL (0.32-4.0)
--- NOTE | 2021-07-24 11:23 | ED_ITS ---
HPI - Syncope General Chief Complaint: Syncope Stated Complaint: passed out twice/head INJ Time Seen by Provider: 07/24/21 11:15 Source: patient Mode of arrival: ambulatory Limitations: no limitations History of Present Illness HPI narrative: Patient comes to emergency room complaining of 2 episodes of syncope yesterday. Patient states that the 1st time she was sitting on the couch, witnessed by her boyfriend. Patient did not fall. However, later on the day, patient was standing in the kitchen, opening the microwave door. Patient states that she started feeling lightheaded, everything felt that was moving in slow motion, patient states that she could hear her surroundings, but does not remember much. Seems the patient did hit her head, no seizure-like activity reported by family friends who were present at the 2nd time that the patient passed out. Since then, patient has not had further symptoms. Patient denied any chest pain, no shortness of breath. Denies any recent illnesses. Denies leg pain/calf pain Related Data Previous Rx's Medication Instructions Recorded levothyroxine 150 mcg capsule 150 mcg PO DAILY 30 Days #30 cap 02/01/21 (Tirosint) albuterol sulfate 90 mcg/actuation 2 puff INHALATION Q6H PRN 30 Days 06/06/21 aerosol inhaler #8.5 g Allergies Allergy/AdvReac Type Severity Reaction Status Date / Time No Known Allergies Allergy Verified 07/24/21 08:13 [No Known Allergies*] Review of Systems Review of Systems: Constitutional : No Weight loss, No Fever, No Chills, No Night Sweats, No Fatigue, No Malaise ENT/Mouth : No Hearing loss, No Ear Pain, No Nasal Congestion, No Sinus Pain, No Hoarseness, No sore throat, No Rhinorrhea, No Swallowing Difficulty Eyes: No Eye Pain, No Swelling, No Redness, No Foreign Body, No Discharge, No Vision Changes Cardiovascular : No Chest Pain, No SOB, No Dyspnea on Exertion, No Orthopnea, No Edema, No Palpitations Respiratory : No Cough, No Sputum, No Wheezing, No Smoke Exposure, No Dyspnea Gastrointestinal : No Nausea, No Vomiting, No Diarrhea, No Constipation, No abdominal Pain, No Hematochezia, No Melena Genitourinary : no irregular bleeding, No Dysuria, No Urinary Frequency, No Hematuria, No Urinary Incontinence, No Urgency, No Flank Pain, No Urinary Flow Changes, No Hesitancy Musculoskeletal : No joint pain, No Myalgias, No Joint Swelling Skin : No Skin Lesions, No rash Neuro : No Weakness, No Numbness, No Paresthesias, 2 episodes of syncope Psych : No Anxiety/Panic, No Depression, No SI/HI/AH/VH, No Social Issues, Heme/Lymph: No Bruising, No Bleeding,No Lymphadenopathy Endocrine : No Polyuria, No Polydipsia, No Temperature Intolerance [facility] Past Medical History Medical History Adjustment disorder, unspecified Asthma BMI 37.0-37.9, adult BMI 38.0-38.9,adult BMI over 35 COVID-19 vaccine series completed Hirsutism History of postoperative nausea Hypothyroidism Morbid obesity Obesity Obesity (BMI 30-39.9) Steatosis, liver Syncope Vitamin A deficiency Vitamin B1 deficiency Vitamin B12 deficiency Vitamin D deficiency Surgical History History of sleeve gastrectomy Hx of section Hx of knee surgery Family History Family History Father Diabetes mellitus HTN (hypertension) Mother Hirsutism Low TSH level Elevated cortisol level Social History Social History Household Members: Spouse and Children Housing: House Are you a primary care aid to a significant other at home: No Do you presently have visiting nurse or other home services: No Patient Tobacco Use Status: Never used Tobacco Advance Directives: No Advance Directives Information Provided: Yes Patient : No service: No Current occupational status: employed Physical Exam Vital Signs: Vital Signs: Last Vital Signs Temp 98 F 07/24/21 08:38 Pulse 75 07/24/21 11:44 Resp 19 07/24/21 08:38 BP 106/68 07/24/21 11:44 Pulse Ox 98 07/24/21 08:38 BMI result Body Mass Index 27.3 Const: Other: Appearance: Alert. Oriented X3. No acute distress. Well-appearing Eyes: Pupils equal, round and reactive to light. ENT: Pharynx normal. Neck: Normal inspection. Neck supple. No lymph nodes noted. No crepitus CVS: Normal heart rate and rhythm. Pulses normal. Normal S1 and S2 Respiratory: No respiratory distress. Breath sounds normal. No Wheezing. No rales Abdomen: Soft and nontender. No rigidity. No distention. Skin: Skin warm and dry. Normal skin color. Normal skin turgor. Extremities: No lower extremity edema. No calf pain. No Lacerations. No Rash Neuro: Oriented X 3. No motor deficit. No sensory deficit. Moving all extermit ies. No slurred speech. Course Course Course Narrative: Head CT shows no acute findings. Labs within normal limits. TSH within normal limits. Patient states that for the last 3 months she has not been taking her thyroid medication, states she has trouble getting her medication at her [facility]. EKG normal, troponin normal, head CT normal, normal physical exam. D-dimer negative. Orthostatic vitals negative I discussed with the patient she would benefit from a Holter monitor. Patient will follow-up with her primary care physician. MDM - Syncope Lab Data Result diagrams: 07/24/21 08:59 Labs: Lab Results 07/24/21 07/24/21 07/24/21 Range/Units 08:55 08:55 08:59 PT (9.9-13.0) SEC INR (0.9-1.1) D-Dimer High Sensitivty NG/ML Sodium 141 (135-145) mmol/L Potassium 4.2 (3.3-5.1) mmol/L Chloride 106 (96-108) mmol/L Carbon Dioxide 29 (22-29) mmol/L Anion Gap 10 L (12-20) BUN 11 (9-16) mg/dL Creatinine 0.69 (0.5-1.4) mg/dL Estim Creat Clear Calc 115.8 Estimated GFR > 60 Random Glucose 83 (60-115) mg/dL Calcium 9.5 (8.4-10.2) mg/dL Troponin I High Sens (<3.5-17.0) ng/L TSH 3.32 (0.32-4.0) uIU/mL Urine Color YELLOW Urine Appearance HAZY Urine pH 7.0 (5.0-8.0) Ur Specific [place] 1.020 (1.005-1.025) Urine Protein NEG (NEG-TRACE) MG/DL Urine Glucose (UA) NEG (NEG) MG/DL Urine Ketones NEG (NEG) MG/DL Urine Blood NEG (NEG) Urine Nitrite NEG (NEG) Ur Leukocyte Esterase NEG (NEG) Urine Test NEGATIVE (NEGATIVE) 07/24/21 07/24/21 Range/Units 08:59 08:59 PT 13.2 H (9.9-13.0) SEC INR 1.2 H (0.9-1.1) D-Dimer High Sensitivty < 150 NG/ML Sodium (135-145) mmol/L Potassium (3.3-5.1) mmol/L Chloride (96-108) mmol/L Carbon Dioxide (22-29) mmol/L Anion Gap (12-20) BUN (9-16) mg/dL Creatinine (0.5-1.4) mg/dL Estim Creat Clear Calc Estimated GFR Random Glucose (60-115) mg/dL Calcium (8.4-10.2) mg/dL Troponin I High Sens < 3.5 (<3.5-17.0) ng/L TSH (0.32-4.0) uIU/mL Urine Color Urine Appearance Urine pH (5.0-8.0) Ur Specific [place] (1.005-1.025) Urine Protein (NEG-TRACE) MG/DL Urine Glucose (UA) (NEG) MG/DL Urine Ketones (NEG) MG/DL Urine Blood (NEG) Urine Nitrite (NEG) Ur Leukocyte Esterase (NEG) Urine Test (NEGATIVE) Imaging Data CT scan - head: Radiologist's impression: FINDINGS: There is no evidence of acute intracranial hemorrhage or territorial infarction. No abnormal mass effect or midline shift is seen. Gu to white matter differentiation is well preserved. No extra-axial fluid collections are identified. The ventricles are normal in size. There is no abnormal attenuation within the brain parenchyma. The osseous structures and soft tissues are normal. The mastoid air cells and visualized portions of the paranasal sinuses are well aerated. ? CT/CT head/brain wo con IMPRESSION: No acute intracranial pathology. ECG Data Attestation: I personally reviewed and interpreted this ECG as follows: (Sinus rhythm, heart rate 78, no ST segment depression or elevation, no T-wave inversion, QTC 444) Discharge Plan Discharge Clinical Impression: Syncope Patient Disposition: Home, Self-Care Instructions: Syncope (ED), Syncope (DC) Additional Instructions: Please follow-up with your primary care physician tomorrow. If you have any worsening or new symptoms, please return to the emergency room or call 911 Prescriptions: No Action levothyroxine [Tirosint] 150 mcg capsule 150 mcg PO DAILY 30 Days Qty: 30 1RF albuterol sulfate 90 mcg/actuation HFA aerosol inhaler 2 puff inhalation Q6H PRN (Reason: wheezing) 30 Days Qty: 8.5 4RF Referrals: Mk Humphrey MD [Physician] - 2 days (Holter monitor)
[2021-07-24 11:41] LABS: D Dimer High Sensitivity < 150 NG/ML
[2021-07-24 11:42] VITALS: BP 114/80; PULSE 84
[2021-07-24 11:43] VITALS: BP 113/73; PULSE 97
[2021-07-24 11:44] VITALS: BP 106/68; PULSE 75
== END 2021-07-24 12:28 | disposition home or self-care (01) ==
LOC: HO.ED 11:50
PROVIDERS: Emergency Provider Emergency Medicine; PCP Family Medicine
DX: R55 Syncope and collapse (principal); Z98.84 Bariatric surgery status
CPT/HCPCS: 36415; 70450; 80048; 81003; 81025; 84443; 84484; 85379; 85610; 93005; 99283; 99284

== ENCOUNTER 2021-08-21 11:30 | Outpatient (REF) | payer OTHER, MEDICAID, SELFPAY ==
[2021-08-21 13:19] LABS: MANUAL DIFF FLAG NO
[2021-08-21 13:25] LABS: Basophils Percent Auto 0.5 % (0-2); Eosinophils Percent Auto 0.7 % (0-4); Hematocrit 38.3 % (37.0-47.0); Hemoglobin 12.5 g/dl (12.0-16.0); Imm Gran Abs Auto 0.02 X10*3/uL (0.00-0.03); Imm Gran Pct Auto 0.4 % (0.0-0.4); Lymphocytes Absolute Auto 1.8 X10*3/uL (1.2-4.9); Lymphocytes Percent Auto 30.9 % (20-40); Mean Corpuscular HGB Conc 32.6 g/dl (31.0-35.0); Mean Corpuscular Hemoglobin 28.2 pg (27.0-33.0); Mean Corpuscular Volume 86.5 fL (80.0-98.0); Mean Platelet Volume 10.4 fL (9.4-12.3); Monocytes Absolute Auto 0.3 X10*3/uL (0.1-1.2); Monocytes Percent Auto 5.8 % (2-11); Neutrophils Absolute Auto 3.5 x10*3/uL (2.0-8.3); Neutrophils Percent Auto 61.7 % (45-73); Platelet Count 257 X10*3/uL (160-400); Red Blood Count 4.43 X10*6/uL (4.20-5.50); Red Cell Distribution Width 13.1 % (11.0-16.0); White Blood Count 5.7 X10*3/uL (4.8-10.8)
[2021-08-21 13:41] LABS: Alanine Aminotransferase 12 U/L (0-31); Albumin Level 4.2 g/dL (3.5-5.0); Alkaline Phosphatase 59 U/L (39-117); Anion Gap 11 (12-20); Aspartate Amino Transferase 15 U/L (5-31); Bilirubin Total 0.7 mg/dL (0.0-1.0); Blood Urea Nitrogen 12 mg/dL (9-16); Calcium 9.3 mg/dL (8.4-10.2); Carbon Dioxide 29 mmol/L (22-29); Chloride 106 mmol/L (96-108); Estimated Glomerular Filt Rate > 60; Glucose Random 76 mg/dL (60-115); Potassium 4.1 mmol/L (3.3-5.1); Sodium 142 mmol/L (135-145); Total Protein 6.9 g/dL (6.5-8.0)
[2021-08-21 13:59] LABS: Free T4 (Free Thyroxine) 0.75 ng/dL (0.71-1.85); Thyroid Stimulating Hormone 8.67 uIU/mL (0.32-4.0)
[2021-08-23 06:56] LABS: Triiodothyronine T3 Total 88 ng/dL (76-181)
[2021-08-31 13:06] LABS: FT4 by Equilib. Dialysis 0.7 ng/dL (0.9-2.2)
== END 2021-08-21 11:31 | disposition home or self-care (01) ==
LOC: HO.10HDL 11:30
PROVIDERS: Family Medicine; Internal Medicine Endocrinology, Diabetes & Metabolism; Visit Provider Internal Medicine
DX: Z00.00 Encounter for general adult medical examination without abnormal findings (principal); R55 Syncope and collapse; E66.01 Morbid (severe) obesity due to excess calories; E03.8 Other specified hypothyroidism; E06.3 Autoimmune thyroiditis; E55.9 Vitamin D deficiency, unspecified
CPT/HCPCS: 36415; 80053; 84439; 84443; 84480; 85025

== ENCOUNTER 2022-01-16 15:01 | Outpatient (REF) | payer OTHER, MEDICAID, SELFPAY ==
--- NOTE | ~2022-01-16 | XR_ITS ---
EXAMINATION: XR HAND, RIGHT CLINICAL INFORMATION: Pain. COMPARISON: Radiograph of the right hand dated from 07/31/2008. TECHNIQUE: PA, lateral, and oblique views of the right hand. FINDINGS: The bones and soft tissues are normal. No fracture. Alignment is anatomic. Joint spaces are maintained. No erosions or soft tissue calcifications. XR/XR hand RT min 3V IMPRESSION: Normal right hand.
== END 2022-01-16 15:02 | disposition home or self-care (01) ==
LOC: HO.HOSX 15:01
PROVIDERS: Visit Provider Physician Assistant
DX: M79.641 Pain in right hand (principal)
CPT/HCPCS: 73130

== ENCOUNTER 2022-02-02 12:23 | Outpatient (REF) | payer OTHER, MEDICAID, SELFPAY ==
[2022-02-02 14:02] LABS: Alanine Aminotransferase 11 U/L (0-31); Albumin Level 4.1 g/dL (3.5-5.0); Alkaline Phosphatase 57 U/L (39-117); Anion Gap 13 (12-20); Aspartate Amino Transferase 14 U/L (5-31); Bilirubin Total 0.5 mg/dL (0.0-1.0); Blood Urea Nitrogen 11 mg/dL (9-16); Calcium 9.1 mg/dL (8.4-10.2); Carbon Dioxide 27 mmol/L (22-29); Chloride 106 mmol/L (96-108); Estimated Glomerular Filt Rate > 60; Glucose Random 89 mg/dL (60-115); Potassium 3.7 mmol/L (3.3-5.1); Sodium 142 mmol/L (135-145); Total Protein 6.6 g/dL (6.5-8.0)
[2022-02-02 14:23] LABS: Free T4 (Free Thyroxine) 0.77 ng/dL (0.71-1.85); Thyroid Stimulating Hormone 8.24 uIU/mL (0.32-4.0)
== END 2022-02-02 12:24 | disposition home or self-care (01) ==
LOC: HO.10HDL 12:23
PROVIDERS: Visit Provider Internal Medicine
DX: E03.8 Other specified hypothyroidism (principal); E06.3 Autoimmune thyroiditis; R55 Syncope and collapse
CPT/HCPCS: 36415; 80053; 84439; 84443

== ENCOUNTER 2022-04-03 15:25 | Outpatient (REF) | payer OTHER, MEDICAID, SELFPAY ==
--- NOTE | ~2022-04-03 | US_ITS ---
EXAMINATION: US THYROID CLINICAL INFORMATION: Other specified hypothyroidism. COMPARISON: Ultrasound thyroid 07/08/2018. TECHNIQUE: Linear transducer grayscale and color Doppler examination with attention to the region of the thyroid. FINDINGS: SIZE: Measurements of the thyroid lobes and nodules are given in sagittal, anteroposterior and transverse dimensions respectively. Right Thyroid Lobe: 4.7 x 1.3 x 1.0 cm, volume 3.4 mL. Previously 4.1 x 1.5 x 1.3 cm, volume 4.2 mL. Parenchyma: The gland echotexture is heterogeneous. Thyroid vascularity is increased. Left Thyroid Lobe: 4.0 x 1.2 x 1.3 cm, volume 3.0 mL. Previously 4.0 x 1.4 x 1.1 cm, volume 3.2 mL. Parenchyma: The gland echotexture is heterogeneous. Thyroid vascularity is increased. Isthmus: 0.15 cm in maximum AP dimension. Previously 0.2 cm. No focal thyroid nodule is seen. NODES: No lymphadenopathy is seen in the tissue surrounding the thyroid gland. US/US thyroid IMPRESSION: Small slightly heterogeneous hypervascular thyroid gland. No nodule seen..
== END 2022-04-03 15:26 | disposition home or self-care (01) ==
LOC: HO.US 15:25
PROVIDERS: Visit Provider Internal Medicine
DX: E03.8 Other specified hypothyroidism (principal); E06.3 Autoimmune thyroiditis
CPT/HCPCS: 76536

== ENCOUNTER 2022-08-13 16:37 | Observation (INO) | payer OTHER, MEDICAID, SELFPAY ==
--- NOTE | ~2022-08-13 | XR_ITS ---
EXAMINATION: XR ABDOMEN KUB CLINICAL INDICATION: Small bowel obstruction COMPARISON: None available. TECHNIQUE: AP view of the abdomen. FINDINGS: The bowel gas pattern is normal with no evidence of ileus or obstruction. Clinical clips are present in the left upper quadrant along with chain suture, suspect probable gastric sleeve or bypass surgery. An IUD is present in the uterus. No unusual soft tissue calcifications are noted. The bones are unremarkable. XR/XR KUB IMPRESSION: No evidence of bowel obstruction.
--- NOTE | ~2022-08-13 | CT_ITS ---
EXAMINATION: CT ABDOMEN AND PELVIS WITHOUT CONTRAST CLINICAL INFORMATION: No bowel movement x7 days COMPARISON: KUB earlier today TECHNIQUE: Multidetector volumetric imaging was performed from the superior aspect of the liver through the pubic symphysis. Sagittal and coronal reformatted images were obtained on the technologist's workstation. This CT examination was performed using dose optimization techniques as appropriate, variously including the following: *Automated exposure control *Adjustment of mA and/or kV according to patient size (this includes techniques or standardized protocols for targeted exams where dose is matched to indication/reason for exam; i.e. extremities or head) *Use of iterative reconstruction technique DLP: 579 mGy-cm FINDINGS: LUNG BASES: The visualized lung bases are unremarkable. LIVER, GALLBLADDER, AND BILIARY TREE: The liver is normal in size, shape, and attenuation. No focal hepatic lesion or biliary ductal dilatation is present. The gallbladder is unremarkable with no evidence of radiopaque gallstones, gallbladder wall thickening, or obvious pericholecystic inflammatory changes. PANCREAS: Unremarkable. SPLEEN: Unremarkable. ADRENAL GLANDS: Unremarkable. KIDNEYS AND URETERS: The kidneys are normal in size, shape, and attenuation. No hydronephrosis, hydroureter, or calculi seen. No perinephric stranding. BLADDER: Unremarkable. GASTROINTESTINAL TRACT: Status post gastric sleeve. The small and large bowel are unremarkable. A small stool burden is present in the colon. The appendix is unremarkable. ABDOMINAL WALL: No significant hernia is appreciated. LYMPH NODES: Normal. VASCULAR: Unremarkable. PELVIC VISCERA: Anteverted uterus is present containing an IUD. A tiny amount of free fluid is present in the cul-de-sac. OSSEOUS STRUCTURES: Unremarkable. CT/CT abdomen pelvis wo IV con IMPRESSION: 1. A cause for the patient's lower abdominal pain has not been found. 2. Incidental note made of gastric sleeve, IUD in the uterus and a tiny amount of free fluid in the cul-de-sac. Stool burden is not excessive. Fleischner guidelines were followed.
[2022-08-13 16:48] VITALS: BP 130/96; PULSE 98; RESP 18; TEMP 36.7; O2SAT 98; BMI 27.8
--- NOTE | 2022-08-13 16:52 | ED_ITS ---
HPI - General Adult General Chief complaint: Abdominal Pain <FERNANDA Johnson - Last Filed: 08/26/22 11:55> Stated complaint: constipated x8 days <FERNANDA Johnson - Last Filed: 08/26/22 11:55> Time Seen by Provider: 08/13/22 17:04 <FERNANDA Johnson - Last Filed: 08/26/22 11:55> Source: patient <FERNANDA Henry - Last Filed: 08/13/22 23:01> Mode of arrival: ambulatory <FERNANDA Henry - Last Filed: 08/13/22 23:01> Limitations: no limitations <FERNANDA Henry Last Filed: 08/13/22 23:01> History of Present Illness HPI narrative: This is a 27-year-old female history of her to his them, asthma, status post laparoscopic sleeve gastrectomy in 2020, hypothyroidism presenting to the emergency department for evaluation of external hemorrhoid and constipation x7 days. Patient reports her hemorrhoid has been bothering her for the past week or so progressively worsening, tender to the touch. Patient reports she has not had a bowel movement in 7 days however continues to pass gas. She tells me she is mostly on a liquid diet drinking a lot of protein shakes and fluids. Patient states that she has not even had 1 small bowel movement in the past 7 days. She denies abdominal pain, nausea, vomiting, headache, vision changes, dizziness, fevers, chills, chest pain, shortness of breath, changes in urination. <FERNANDA Henry - Last Filed: 08/13/22 23:01> Related Data Home medications: Home Medications Medication Instructions Recorded Confirmed phentermine 7.5 mg-topiramate ER 1 cap PO DAILY 08/14/22 08/14/22 46 mg capsule,ext.release 24hr mphase (Qsymia) Previous Rx's Medication Instructions Recorded albuterol sulfate 90 mcg/actuation 2 puff inhalation Q6H PRN wheezing 06/06/21 aerosol inhaler 30 days #8.5 grams levothyroxine 75 mcg tablet 75 mcg PO DAILY 30 days #30 tabs 05/15/22 docusate sodium 100 mg capsule 100 mg PO BID #60 caps 08/17/22 (Colace) oxycodone-acetaminophen 5 mg-325 1 tab PO Q4-6H PRN pain #30 tabs 08/17/22 mg tablet (Percocet) polyethylene glycol 3350 17 17 g PO DAILY #119 grams 08/18/22 gram/dose oral powder (Miralax) <FERNANDA Johnson - Last Filed: 08/26/22 11:55> Allergies/adverse reactions: Allergies Allergy/AdvReac Type Severity Reaction Status Date / Time No Known Allergies Allergy Verified 08/13/22 23:28 [No Known Allergies*] <FERNANDA Johnson - Last Filed: 08/26/22 11:55> Review of Systems Review of Systems: Constitutional : No Weight loss, No Fever, No Chills, No Fatigue, No Malaise ENT/Mouth : No sore throat, No Rhinorrhea Eyes: No Eye Pain, No Swelling, No Redness Cardiovascular : No Chest Pain, No SOB, No Dyspnea on Exertion, No Orthopnea, No Edema, No Palpitations Respiratory : No Cough, No Sputum, No Wheezing Gastrointestinal : No Nausea, No Vomiting, No Diarrhea, + Constipation, No abdominal Pain, No Hematochezia, No Melena, + hemorrhoids Genitourinary : No Dysuria, No Urinary Frequency, No Hematuria, Musculoskeletal : No joint pain, No Myalgias, No Joint Swelling Skin : No Skin Lesions, No rash Neuro : No Weakness, No Numbness, No Dizziness, No Headache Psych : No Anxiety/Panic, No Depression All other systems reviewed and are negative <FERNANDA Henry - Last Filed: 08/13/22 23:01> Yes all other systems are reviewed and are negative <FERNANDA Henry - Last Filed: 08/13/22 23:01> PMFSH Past Medical History Attestation statement: The following information was validated with the patient. <FERNANDA Henry - Last Filed: 08/13/22 23:01> Source: old records reviewed <FERNANDA Henry - Last Filed: 08/13/22 23:01> Medical History: Medical History Adjustment disorder, unspecified Asthma BMI 37.0-37.9, adult BMI 38.0-38.9,adult BMI over 35 COVID-19 vaccine series completed Hirsutism History of postoperative nausea Hypothyroidism Morbid obesity Obesity Obesity (BMI 30-39.9) Steatosis, liver Syncope Vitamin A deficiency Vitamin B1 deficiency Vitamin B12 deficiency Vitamin D deficiency <FERNANDA Johnson - Last Filed: 08/26/22 11:55> Surgical History: Surgical History History of sleeve gastrectomy Hx of section Hx of knee surgery <FERNANDA Johnson - Last Filed: 08/26/22 11:55> Family History Family History: Family History Father Diabetes mellitus HTN (hypertension) Mother Hirsutism Low TSH level Elevated cortisol level <FERNANDA Johnson - Last Filed: 08/26/22 11:55> Social History Social History: Social History Household Members: Spouse and Children Housing: House Are you a primary career based intervention coordinator to a significant other at home: No Do you presently have visiting nurse or other home services: No Patient Tobacco Use Status: Never used Tobacco service: No Current occupational status: employed 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[employer] Cognitive needs: No Hearing needs: No Vision needs: Yes <FERNANDA Johnson - Last Filed: 08/26/22 11:55> Physical Exam ED Vital Signs: Vital Signs - 24 hr 08/13/22 16:48 08/13/22 20:23 Temperature 98.1 F 98.6 F Pulse Rate 98 74 Respiratory Rate 18 20 Blood Pressure 130/96 H 115/74 Pulse Oximetry 98 99 Oxygen Delivery Method Room Air Room Air BMI result Body Mass Index 27.8 <FERNANDA Johnson - Last Filed: 08/26/22 11:55> Vital Signs - 24 hr 08/13/22 16:48 08/13/22 20:23 Temperature 98.1 F 98.6 F Pulse Rate 98 74 Respiratory Rate 18 20 Blood Pressure 130/96 H 115/74 Pulse Oximetry 98 99 Oxygen Delivery Method Room Air Room Air BMI result Body Mass Index 27.8 Vital signs stable <FERNANDA Henry - Last Filed: 08/13/22 23:01> Appearance: Alert.? Oriented X3.? No acute distress.? Head: Normocephalic, atraumatic, no step-offs or deformities Eyes: Pupils equal, round and reactive to light.? CVS: Normal heart rate and rhythm.? Pulses normal.? Respiratory: No respiratory distress.? Breath sounds normal.? Abdomen: Soft and nontender.? Normoactive bowel sounds throughout. Skin: Skin warm and dry.? Normal skin color.? Normal skin turgor.? Extremities: No lower extremity edema.? No calf ttp. 5/5 strength to bilateral upper and lower extremities Back: No midline tenderness, no C-spine tenderness, full range of motion, no CVA tenderness bilaterally Neuro: Oriented X 3.? No motor deficit.? No sensory deficit. CN 2-12 intact Rectal exam: Large thrombosed external hemorrhoid tender to palpation. <FERNANDA Henry - Last Filed: 08/13/22 23:01> Course Course Course Narrative: RME: 27 yold female presents to the ED for constipation for 8 days since drinking protein shake. Patient states able to pass gas and deneis any abdominal pain, nuasea, or vomitting. UA, Urg preg and KUB ordered <FERNANDA Johnson - Last Filed: 08/26/22 11:55> Reevaluation(s) Reevaluation #1: General surgery Dr. Sykes is at the bedside to do incision and drainage of external thrombosed hemorrhoid. Patient tolerated procedure well. Silver nitrate used to help control bleeding. KUB without obstruction. Labs and CT scan pending. <FERNANDA Henry - Last Filed: 08/13/22 23:01> Time: 18:11 <FERNANDA Henry Last Filed: 08/13/22 23:01> Reevaluation #2: Patient's CBC within normal limits. Chemistry with no acute electrolyte abnormalities requiring intervention.. <FERNANDA Henry - Last Filed: 08/13/22 23:01> Time: 21:43 <FERNANDA Henry Last Filed: 08/13/22 23:01> Reevaluation #3: CT of the abdomen and pelvis with no signs of obstruction. Discussed this case with surgery as patient still in excruciating pain from thrombosed hemorrhoid. Suggest hospital admission for pain control and further evaluation. Patient is still complaining of nausea Reglan and Benadryl ordered. <FERNANDA Henry - Last Filed: 08/13/22 23:01> Time: 23:01 <FERNANDA Henry - Last Filed: 08/13/22 23:01> Medications Administered Discontinued Medications Generic Name Dose Route Start Last Admin Trade Name Freq PRN Reason Stop Dose Admin Acetaminophen 650 mg 08/16/22 11:34 08/18/22 00:26 Acetaminophen 325 Mg Tablet PO 650 mg ONCE PRN Administration Pain, Mild (Pain Scale 1-3) Bisacodyl 10 mg 08/13/22 19:08 08/13/22 19:48 Bisacodyl 5 Mg Tablet.Dr PO 08/13/22 19:09 10 mg ONCE ONE Administration Diphenhydramine HCl 50 mg 08/13/22 23:00 08/13/22 23:15 Diphenhydramine Hcl 50 Mg/Ml Vial IVPUSH 08/13/22 23:01 50 mg ONCE ONE Administration Docusate Sodium 100 mg 08/13/22 17:37 08/13/22 17:50 Docusate Sodium 100 Mg Capsule PO 08/13/22 17:38 100 mg ONCE ONE Administration Docusate Sodium 100 mg 08/14/22 09:00 08/18/22 08:35 Docusate Sodium 100 Mg Capsule PO 100 mg BID JANY Administration Hydromorphone HCl 1 mg 08/13/22 19:50 08/13/22 20:21 Hydromorphone Hcl 1 Mg/Ml Syringe IVPUSH 08/13/22 19:51 1 mg ONCE ONE Administration Protocol Hydromorphone HCl 0.5 mg 08/16/22 11:34 08/16/22 12:58 Hydromorphone Hcl 0.5 Mg/0.5 Ml Syringe IVPUSH 0.25 mg Q5M PRN Administration Pain, Severe (Pain Scale 7-10) Protocol Acetaminophen 1,000 mg in 100 mls @ 400 mls/hr 08/13/22 23:00 08/16/22 21:09 Ofirmev IV Not Given Q6H JANY Cefotetan Disodium 2 gm/ 50 mls @ 100 mls/hr 08/16/22 08:22 08/16/22 13:56 Sodium Chloride IV 08/16/22 08:51 Not Given PREOP ONE Acetaminophen 1,000 mg in 100 mls @ 400 mls/hr 08/16/22 16:15 08/17/22 09:57 Ofirmev IV 08/17/22 10:29 Infused Q6H JANY Infusion Ketorolac Tromethamine 30 mg 08/13/22 17:38 08/13/22 17:49 Ketorolac Tromethamine 30 Mg/Ml Vial IM 08/13/22 17:39 30 mg ONCE ONE Administration Levothyroxine Sodium 75 mcg 08/14/22 06:00 08/18/22 06:34 Levothyroxine Sodium 75 Mcg Tablet PO 75 mcg DAILY@0600 [facility] Administration Lidocaine HCl 30 ml 08/13/22 17:28 08/13/22 17:55 Lidocaine Hcl 1 % Mpf 30 Ml Vial SUBCUT 08/13/22 17:29 30 ml ONCE ONE Administration Protocol Metoclopramide HCl 10 mg 08/13/22 23:00 08/13/22 23:15 Metoclopramide Hcl 10 Mg/2 Ml Vial IVPUSH 08/13/22 23:01 10 mg ONCE ONE Administration Morphine Sulfate 15 mg 08/13/22 17:38 08/13/22 17:49 Morphine Sulfate Immed Release 15 Mg Tablet PO 08/13/22 17:39 15 mg ONCE ONE Administration Morphine Sulfate 3 mg 08/13/22 22:47 08/18/22 08:35 Morphine Sulfate 4 Mg/Ml Cartridge IVPUSH 3 mg Q3H PRN Administration Pain, Severe (Pain Scale 7-10) Protocol Ondansetron HCl 4 mg 08/13/22 20:02 08/13/22 20:21 Ondansetron Hcl 4 Mg/2 Ml Vial IVPUSH 08/13/22 20:03 4 mg ONCE ONE Administration Ondansetron HCl 4 mg 08/13/22 22:49 08/14/22 16:29 Ondansetron Hcl 4 Mg/2 Ml Vial IV 4 mg Q6H PRN Administration nausea Oxycodone HCl 10 mg 08/13/22 22:47 08/18/22 02:56 Oxycodone Hcl Immed Release 5 Mg Tablet PO 10 mg Q4H PRN Administration Pain, Moderate (Pain Scale 4-6 Polyethylene Glycol 17 gm 08/13/22 17:37 08/13/22 17:49 Polyethylene Glycol 3350 17 Gm Powd.Pack PO 08/13/22 17:38 17 gm ONCE ONE Administration Polyethylene Glycol 17 gm 08/17/22 12:47 08/17/22 13:23 Polyethylene Glycol 3350 17 Gm Powd.Pack PO 08/17/22 12:48 17 gm ONCE ONE Administration Polyethylene Glycol 17 gm 08/18/22 09:15 08/18/22 09:40 Polyethylene Glycol 3350 17 Gm Powd.Pack PO 08/18/22 09:16 17 gm ONCE ONE Administration Senna 15 ml 08/13/22 17:37 08/13/22 17:50 Senna Hazel Extract Oral Syrup 15 Ml Syrup PO 08/13/22 17:38 15 ml ONCE ONE Administration Silver Nitrate 4 appl 08/13/22 17:28 08/13/22 17:55 Silver Nitrate Applicator Stick..Ea. TOPICAL 08/13/22 17:29 4 appl ONCE ONE Administration Sodium Chloride 3 ml 08/14/22 00:00 08/18/22 08:35 0.9 % Sodium Chloride Flush 3 Ml Syringe IVFLUSH 3 ml QSHIFT JANY Administration <FERNANDA Johnson - Last Filed: 08/26/22 11:55> Medications Administered Discontinued Medications Generic Name Dose Route Start Last Admin Trade Name Freq PRN Reason Stop Dose Admin Acetaminophen 650 mg 08/16/22 11:34 08/18/22 00:26 Acetaminophen 325 Mg Tablet PO 650 mg ONCE PRN Administration Pain, Mild (Pain Scale 1-3) Bisacodyl 10 mg 08/13/22 19:08 08/13/22 19:48 Bisacodyl 5 Mg Tablet. PO 08/13/22 19:09 10 mg ONCE ONE Administration Diphenhydramine HCl 50 mg 08/13/22 23:00 08/13/22 23:15 Diphenhydramine Hcl 50 Mg/Ml Vial IVPUSH 08/13/22 23:01 50 mg ONCE ONE Administration Docusate Sodium 100 mg 08/13/22 17:37 08/13/22 17:50 Docusate Sodium 100 Mg Capsule PO 08/13/22 17:38 100 mg ONCE ONE Administration Docusate Sodium 100 mg 08/14/22 09:00 08/18/22 08:35 Docusate Sodium 100 Mg Capsule PO 100 mg BID JANY Administration Hydromorphone HCl 1 mg 08/13/22 19:50 08/13/22 20:21 Hydromorphone Hcl 1 Mg/Ml Syringe IVPUSH 08/13/22 19:51 1 mg ONCE ONE Administration Protocol Hydromorphone HCl 0.5 mg 08/16/22 11:34 08/16/22 12:58 Hydromorphone Hcl 0.5 Mg/0.5 Ml Syringe IVPUSH 0.25 mg Q5M PRN Administration Pain, Severe (Pain Scale 7-10) Protocol Acetaminophen 1,000 mg in 100 mls @ 400 mls/hr 08/13/22 23:00 08/16/22 21:09 Ofirmev IV Not Given Q6H [facility] Cefotetan Disodium 2 gm/ 50 mls @ 100 mls/hr 08/16/22 08:22 08/16/22 13:56 Sodium Chloride IV 08/16/22 08:51 Not Given PREOP ONE Acetaminophen 1,000 mg in 100 mls @ 400 mls/hr 08/16/22 16:15 08/17/22 09:57 Ofirmev IV 08/17/22 10:29 Infused Q6H [facility] Infusion Ketorolac Tromethamine 30 mg 08/13/22 17:38 08/13/22 17:49 Ketorolac Tromethamine 30 Mg/Ml Vial IM 08/13/22 17:39 30 mg ONCE ONE Administration Levothyroxine Sodium 75 mcg 08/14/22 06:00 08/18/22 06:34 Levothyroxine Sodium 75 Mcg Tablet PO 75 mcg DAILY@0600 [facility] Administration Lidocaine HCl 30 ml 08/13/22 17:28 08/13/22 17:55 Lidocaine Hcl 1 % Mpf 30 Ml Vial SUBCUT 08/13/22 17:29 30 ml ONCE ONE Administration Protocol Metoclopramide HCl 10 mg 08/13/22 23:00 08/13/22 23:15 Metoclopramide Hcl 10 Mg/2 Ml Vial IVPUSH 08/13/22 23:01 10 mg ONCE ONE Administration Morphine Sulfate 15 mg 08/13/22 17:38 08/13/22 17:49 Morphine Sulfate Immed Release 15 Mg Tablet PO 08/13/22 17:39 15 mg ONCE ONE Administration Morphine Sulfate 3 mg 08/13/22 22:47 08/18/22 08:35 Morphine Sulfate 4 Mg/Ml Cartridge IVPUSH 3 mg Q3H PRN Administration Pain, Severe (Pain Scale 7-10) Protocol Ondansetron HCl 4 mg 08/13/22 20:02 08/13/22 20:21 Ondansetron Hcl 4 Mg/2 Ml Vial IVPUSH 08/13/22 20:03 4 mg ONCE ONE Administration Ondansetron HCl 4 mg 08/13/22 22:49 08/14/22 16:29 Ondansetron Hcl 4 Mg/2 Ml Vial IV 4 mg Q6H PRN Administration nausea Oxycodone HCl 10 mg 08/13/22 22:47 08/18/22 02:56 Oxycodone Hcl Immed Release 5 Mg Tablet PO 10 mg Q4H PRN Administration Pain, Moderate (Pain Scale 4-6 Polyethylene Glycol 17 gm 08/13/22 17:37 08/13/22 17:49 Polyethylene Glycol 3350 17 Gm Powd.Pack PO 08/13/22 17:38 17 gm ONCE ONE Administration Polyethylene Glycol 17 gm 08/17/22 12:47 08/17/22 13:23 Polyethylene Glycol 3350 17 Gm Powd.Pack PO 08/17/22 12:48 17 gm ONCE ONE Administration Polyethylene Glycol 17 gm 08/18/22 09:15 08/18/22 09:40 Polyethylene Glycol 3350 17 Gm Powd.Pack PO 08/18/22 09:16 17 gm ONCE ONE Administration Senna 15 ml 08/13/22 17:37 08/13/22 17:50 Senna Hazel Extract Oral Syrup 15 Ml Syrup PO 08/13/22 17:38 15 ml ONCE ONE Administration Silver Nitrate 4 appl 08/13/22 17:28 08/13/22 17:55 Silver Nitrate Applicator Stick..Ea. TOPICAL 08/13/22 17:29 4 appl ONCE ONE Administration Sodium Chloride 3 ml 08/14/22 00:00 08/18/22 08:35 0.9 % Sodium Chloride Flush 3 Ml Syringe IVFLUSH 3 ml QSHIFT JANY Administration <FERNANDA Henry - Last Filed: 08/13/22 23:01> Medical Decision Making Medical Decision Making [facility] Narrative: 1741 27-year-old female presents with large external hemorrhoids and constipation x7 days. Physical exam with large external hemorrhoids painful to palpation. Abdomen soft nontender nondistended with normoactive bowel sounds. Vital signs stable. There is concerns for external thrombosed hemorrhoids. Likely functional constipation. Unlikely small or large bowel obstruction due to present bowel sounds however will rule out. No signs of acute abdomen. Will rule out electrolyte abnormalities Plan at this time consult surgery due to the extensive nature of these h emorrhoids. Will obtain CT of the abdomen pelvis to rule out obstruction. <FERNANDA Henry - Last Filed: 08/13/22 23:01> Differential Diagnosis Differential Diagnoses: The differential diagnosis associated with the presentation includes <FERNANDA Henry - Last Filed: 08/13/22 23:01> There is concerns for external thrombosed hemorrhoids. Likely functional constipation. Unlikely small or large bowel obstruction due to present bowel sounds however will rule out. No signs of acute abdomen. Will rule out electrolyte abnormalities <FERNANDA Henry - Last Filed: 08/13/22 23:01> Admission/Observation Consideration of admission/observation: Escalation of care including admission/observation considered <FERNANDA Henry - Last Filed: 08/13/22 23:01> Unlikely <FERNANDA Henry - Last Filed: 08/13/22 23:01> Lab Data Result Diagrams: 08/13/22 17:58 08/13/22 17:58 <FERNANDA Johnson - Last Filed: 08/26/22 11:55> Labs: Lab Results 08/13/22 08/13/22 08/13/22 Range/Units 17:58 17:58 19:52 WBC 7.6 (4.8-10.8) X10*3/uL RBC 4.64 (4.20-5.50) X10*6/uL Hgb 12.9 (12.0-16.0) g/dl Hct 38.2 (37.0-47.0) % MCV 82.3 (80.0-98.0) fL MCH 27.8 (27.0-33.0) pg MCHC 33.8 (31.0-35.0) g/dl RDW 12.5 (11.0-16.0) % Plt Count 252 (160-400) X10*3/uL MPV 10.0 (9.4-12.3) fL Immature Gran % (Auto) 0.3 (0.0-0.4) % Neut % (Auto) 70.9 (45-73) % Lymph % (Auto) 23.0 (20-40) % Hays % (Auto) 4.6 (2-11) % Eos % (Auto) 0.7 (0-4) % Baso % (Auto) 0.5 (0-2) % Lymph # (Auto) 1.7 (1.2-4.9) X10*3/uL Hays # (Auto) 0.4 (0.1-1.2) X10*3/uL Eos # (Auto) 0.1 (0.0-0.4) X10*3/uL Baso # (Auto) 0.0 (0.0-0.2) X10*3/uL Abs Immat Gran (auto) 0.02 (0.00-0.03) X10*3/uL Absolute Neuts (auto) 5.4 (2.0-8.3) x10*3/uL Absolute Nucleated RBC 0.000 (0.0-0.012) X10*3/uL Nucleated RBC % (auto) 0.0 (0.0-0.2) /100WBC Sodium 141 (135-145) mmol/L Potassium 3.8 (3.3-5.1) mmol/L Chloride 109 H (96-108) mmol/L Carbon Dioxide 22 (22-29) mmol/L Anion Gap 14 (12-20) BUN 12 (9-16) mg/dL Creatinine 0.81 (0.5-1.4) mg/dL Estim Creat Clear Calc 102.4 Estimated GFR > 60 Random Glucose 96 (60-115) mg/dL Calcium 9.0 (8.4-10.2) mg/dL Magnesium 2.0 (1.6-2.6) mg/dL Total Bilirubin 0.6 (0.0-1.0) mg/dL AST 15 (5-31) U/L ALT 9 (0-31) U/L Alkaline Phosphatase 61 (39-117) U/L Total Protein 6.6 (6.5-8.0) g/dL Albumin 4.2 (3.5-5.0) g/dL Beta HCG, Quant < 2 mIU/mL Urine Color Yellow Urine Appearance Clear Urine pH 6.5 (5.0-9.0) Ur Specific Sterling 1.020 (1.005-1.025) Urine Protein Negative (Neg-Trace) mg/dL Urine Glucose (UA) Negative (Negative) mg/dL Urine Ketones 40 (Negative) mg/dL Urine Blood Moderate (2+) H (Negative) Urine Nitrite Negative (Negative) Ur Leukocyte Esterase Negative (Negative) Urine RBC 0-2 (0-2) /HPF Urine WBC 0-5 (0-5) /HPF Ur Squamous Epith Cells 0-2 (0-2) /HPF Urine Bacteria None Seen (None Seen) Hyaline Casts 0-2 (0-2) /LPF Urine Test (NEGATIVE) 08/13/22 Range/Units 19:52 WBC (4.8-10.8) X10*3/uL RBC (4.20-5.50) X10*6/uL Hgb (12.0-16.0) g/dl Hct (37.0-47.0) % MCV (80.0-98.0) fL MCH (27.0-33.0) pg MCHC (31.0-35.0) g/dl RDW (11.0-16.0) % Plt Count (160-400) X10*3/uL MPV (9.4-12.3) fL Immature Gran % (Auto) (0.0-0.4) % Neut % (Auto) (45-73) % Lymph % (Auto) (20-40) % Hays % (Auto) (2-11) % Eos % (Auto) (0-4) % Baso % (Auto) (0-2) % Lymph # (Auto) (1.2-4.9) X10*3/uL Hays # (Auto) (0.1-1.2) X10*3/uL Eos # (Auto) (0.0-0.4) X10*3/uL Baso # (Auto) (0.0-0.2) X10*3/uL Abs Immat Gran (auto) (0.00-0.03) X10*3/uL Absolute Neuts (auto) (2.0-8.3) x10*3/uL Absolute Nucleated RBC (0.0-0.012) X10*3/uL Nucleated RBC % (auto) (0.0-0.2) /100WBC Sodium (135-145) mmol/L Potassium (3.3-5.1) mmol/L Chloride (96-108) mmol/L Carbon Dioxide (22-29) mmol/L Anion Gap (12-20) BUN (9-16) mg/dL Creatinine (0.5-1.4) mg/dL Estim Creat Clear Calc Estimated GFR Random Glucose (60-115) mg/dL Calcium (8.4-10.2) mg/dL Magnesium (1.6-2.6) mg/dL Total Bilirubin (0.0-1.0) mg/dL AST (5-31) U/L ALT (0-31) U/L Alkaline Phosphatase (39-117) U/L Total Protein (6.5-8.0) g/dL Albumin (3.5-5.0) g/dL Beta HCG, Quant mIU/mL Urine Color Urine Appearance Urine pH (5.0-9.0) Ur Specific Sterling (1.005-1.025) Urine Protein (Neg-Trace) mg/dL Urine Glucose (UA) (Negative) mg/dL Urine Ketones (Negative) mg/dL Urine Blood (Negative) Urine Nitrite (Negative) Ur Leukocyte Esterase (Negative) Urine RBC (0-2) /HPF Urine WBC (0-5) /HPF Ur Squamous Epith Cells (0-2) /HPF Urine Bacteria (None Seen) Hyaline Casts (0-2) /LPF Urine Test NEGATIVE (NEGATIVE) <FERNANDA Johnson - Last Filed: 08/26/22 11:55> Lab Results 08/13/22 08/13/22 08/13/22 Range/Units 17:58 17:58 19:52 WBC 7.6 (4.8-10.8) X10*3/uL RBC 4.64 (4.20-5.50) X10*6/uL Hgb 12.9 (12.0-16.0) g/dl Hct 38.2 (37.0-47.0) % MCV 82.3 (80.0-98.0) fL MCH 27.8 (27.0-33.0) pg MCHC 33.8 (31.0-35.0) g/dl RDW 12.5 (11.0-16.0) % Plt Count 252 (160-400) X10*3/uL MPV 10.0 (9.4-12.3) fL Immature Gran % (Auto) 0.3 (0.0-0.4) % Neut % (Auto) 70.9 (45-73) % Lymph % (Auto) 23.0 (20-40) % Hays % (Auto) 4.6 (2-11) % Eos % (Auto) 0.7 (0-4) % Baso % (Auto) 0.5 (0-2) % Lymph # (Auto) 1.7 (1.2-4.9) X10*3/uL Hays # (Auto) 0.4 (0.1-1.2) X10*3/uL Eos # (Auto) 0.1 (0.0-0.4) X10*3/uL Baso # (Auto) 0.0 (0.0-0.2) X10*3/uL Abs Immat Gran (auto) 0.02 (0.00-0.03) X10*3/uL Absolute Neuts (auto) 5.4 (2.0-8.3) x10*3/uL Absolute Nucleated RBC 0.000 (0.0-0.012) X10*3/uL Nucleated RBC % (auto) 0.0 (0.0-0.2) /100WBC Sodium 141 (135-145) mmol/L Potassium 3.8 (3.3-5.1) mmol/L Chloride 109 H (96-108) mmol/L Carbon Dioxide 22 (22-29) mmol/L Anion Gap 14 (12-20) BUN 12 (9-16) mg/dL Creatinine 0.81 (0.5-1.4) mg/dL Estim Creat Clear Calc 102.4 Estimated GFR > 60 Random Glucose 96 (60-115) mg/dL Calcium 9.0 (8.4-10.2) mg/dL Magnesium 2.0 (1.6-2.6) mg/dL Total Bilirubin 0.6 (0.0-1.0) mg/dL AST 15 (5-31) U/L ALT 9 (0-31) U/L Alkaline Phosphatase 61 (39-117) U/L Total Protein 6.6 (6.5-8.0) g/dL Albumin 4.2 (3.5-5.0) g/dL Beta HCG, Quant < 2 mIU/mL Urine Color Yellow Urine Appearance Clear Urine pH 6.5 (5.0-9.0) Ur Specific [place] 1.020 (1.005-1.025) Urine Protein Negative (Neg-Trace) mg/dL Urine Glucose (UA) Negative (Negative) mg/dL Urine Ketones 40 (Negative) mg/dL Urine Blood Moderate (2+) H (Negative) Urine Nitrite Negative (Negative) Ur Leukocyte Esterase Negative (Negative) Urine RBC 0-2 (0-2) /HPF Urine WBC 0-5 (0-5) /HPF Ur Squamous Epith Cells 0-2 (0-2) /HPF Urine Bacteria None Seen (None Seen) Hyaline Casts 0-2 (0-2) /LPF Urine Test (NEGATIVE) 08/13/22 Range/Units 19:52 WBC (4.8-10.8) X10*3/uL RBC (4.20-5.50) X10*6/uL Hgb (12.0-16.0) g/dl Hct (37.0-47.0) % MCV (80.0-98.0) fL MCH (27.0-33.0) pg MCHC (31.0-35.0) g/dl RDW (11.0-16.0) % Plt Count (160-400) X10*3/uL MPV (9.4-12.3) fL Immature Gran % (Auto) (0.0-0.4) % Neut % (Auto) (45-73) % Lymph % (Auto) (20-40) % Hays % (Auto) (2-11) % Eos % (Auto) (0-4) % Baso % (Auto) (0-2) % Lymph # (Auto) (1.2-4.9) X10*3/uL [place] # (Auto) (0.1-1.2) X10*3/uL Eos # (Auto) (0.0-0.4) X10*3/uL Baso # (Auto) (0.0-0.2) X10*3/uL Abs Immat Gran (auto) (0.00-0.03) X10*3/uL Absolute Neuts (auto) (2.0-8.3) x10*3/uL Absolute Nucleated RBC (0.0-0.012) X10*3/uL Nucleated RBC % (auto) (0.0-0.2) /100WBC Sodium (135-145) mmol/L Potassium (3.3-5.1) mmol/L Chloride (96-108) mmol/L Carbon Dioxide (22-29) mmol/L Anion Gap (12-20) BUN (9-16) mg/dL Creatinine (0.5-1.4) mg/dL Estim Creat Clear Calc Estimated GFR Random Glucose (60-115) mg/dL Calcium (8.4-10.2) mg/dL Magnesium (1.6-2.6) mg/dL Total Bilirubin (0.0-1.0) mg/dL AST (5-31) U/L ALT (0-31) U/L Alkaline Phosphatase (39-117) U/L Total Protein (6.5-8.0) g/dL Albumin (3.5-5.0) g/dL Beta HCG, Quant mIU/mL Urine Color Urine Appearance Urine pH (5.0-9.0) Ur Specific [place] (1.005-1.025) Urine Protein (Neg-Trace) mg/dL Urine Glucose (UA) (Negative) mg/dL Urine Ketones (Negative) mg/dL Urine Blood (Negative) Urine Nitrite (Negative) Ur Leukocyte Esterase (Negative) Urine RBC (0-2) /HPF Urine WBC (0-5) /HPF Ur Squamous Epith Cells (0-2) /HPF Urine Bacteria (None Seen) Hyaline Casts (0-2) /LPF Urine Test NEGATIVE (NEGATIVE) <FERNANDA Henry - Last Filed: 08/13/22 23:01> Independent Interpretation I performed an independent interpretation of an: Plain X-Ray <FERNANDA Henry - Last Filed: 08/13/22 23:01> Radiology Impression Discussion of test interpretation with radiology: I have reviewed the radiologist's reading. <FERNANDA Henry - Last Filed: 08/13/22 23:01> Core Measures AMI core measures followed: Yes <FERNANDA Henry - Last Filed: 08/13/22 23:01> Measure exclusions: not indicated <FERNANDA Henry - Last Filed: 08/13/22 23:01> Critical Care Time Critical Care Time Critical Care Time: Yes <FERNANDA Henry - Last Filed: 08/13/22 23:01> Total Critical Care Time: 35 <FERNANDA Henry - Last Filed: 08/13/22 23:01> Attestation: I attest to this time spent taking care of the patient, obtaining history, physical, reviewing labs, imaging, speaking to my attending, speaking to specialist. <FERNANDA Henry - Last Filed: 08/13/22 23:01> Discharge Plan Discharge Clinical Impression: External hemorrhoid, thrombosed, Constipation <FERNANDA Johnson - Last Filed: 08/26/22 11:55> Patient Disposition: Admitted As Inpatient <FERNANDA Johnson - Last Filed: 08/26/22 11:55> Interventions: Admission Worksheet (ED) Last Done: 08/14/22 16:15 <FERNANDA Johnson - Last Filed: 08/26/22 11:55> Discharge Date/Time: 08/14/22 16:16 <FERNANDA Johnson - Last Filed: 08/26/22 11:55>
[2022-08-13] MEDS: Ketorolac Tromethamine 30 MG/ML VIAL IM (17:49)
[2022-08-13] MEDS: polyethylene glycoL 3350 17 GM POWD.PACK PO (17:49)
[2022-08-13] MEDS: Morphine Sulfate Immed Release 15 MG TABLET PO (17:49)
[2022-08-13] MEDS: Docusate Sodium 100 MG CAPSULE PO (17:50)
[2022-08-13] MEDS: Silver Nitrate Applicator STICK..EA. 4 APPL TOPICAL (17:55)
[2022-08-13] MEDS: Lidocaine HCl 1 % MPF 30 ML VIAL SUBCUT (17:55)
--- NOTE | 2022-08-13 18:00 | PM.CNGS ---
History of Present Illness Consult details Consult date: 08/13/22 Narrative: 27F here for painful hemorrhoids. She had a history of thrmobosed hemorrhoids in the past. she underwent sleeve gastrectomy in 2020 and since then has had issues with constipation. She says that because opf this, her hemorrhoid have acted up and have been painful for 4 days now. She says today, she went home from work and noticed her hemorrhoids to be more swollen, so she went to the ED. She also sees some blood periodically. Review of Systems Constitutional: Constitutional: Denies chills and Denies fever(s) Cardiovascular: Cardiovascular: Denies chest pain, Denies dyspnea and Denies dyspnea on exertion Respiratory: Respiratory: Denies cough, Denies dyspnea and Denies dyspnea on exertion Gastrointestinal: Gastrointestinal: Denies hematochezia, Denies change in bowel habits and Reports constipation Genitourinary: Genitourinary: Denies hematuria Musculoskeletal: Musculoskeletal: Denies back pain and Denies limited range of motion Neurologic: Denies focal weakness and Denies convulsions Psychiatric: Psychiatric: Denies depression and Denies mood swings PMFSH Past Medical History Medical History Adjustment disorder, unspecified Asthma BMI 37.0-37.9, adult BMI 38.0-38.9,adult BMI over 35 COVID-19 vaccine series completed Hirsutism History of postoperative nausea Hypothyroidism Morbid obesity Obesity Obesity (BMI 30-39.9) Steatosis, liver Syncope Vitamin A deficiency Vitamin B1 deficiency Vitamin B12 deficiency Vitamin D deficiency Family History Family History Father Diabetes mellitus HTN (hypertension) Mother Hirsutism Low TSH level Elevated cortisol level Surgical History Surgical History History of sleeve gastrectomy Hx of section Hx of knee surgery Social History Social History Household Members: Spouse and Children Housing: House Are you a primary geriatric personal care aide to a significant other at home: No Do you presently have visiting nurse or other home services: No Patient Tobacco Use Status: Never used Tobacco Smoked in Last 30 Days: No Use of substances other than those prescribed or required for medical reasons: No Currently Displaying Signs/Symptoms of Drug Intoxication Withdrawal: No Any prior treatment program specific to substance use: No Have you been hit, kicked, punched, or otherwise hurt by someone within the past year? 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 Cognitive needs: No Hearing needs: No Vision needs: Yes Meds Allergies Allergy/AdvReac Type Severity Reaction Status Date / Time No Known Allergies Allergy Verified 08/13/22 23:28 [No Known Allergies*] Home Medications Medication Instructions Recorded Confirmed Last Taken Type phentermine 7.5 mg-topiramate ER 1 cap PO DAILY 08/14/22 08/14/22 Unknown History 46 mg capsule,ext.release 24hr mphase (Qsymia) Physical Exam Vital Signs: Vital Signs: Last Vital Signs Temp 98.1 F 08/13/22 16:48 Pulse 98 08/13/22 16:48 Resp 18 08/13/22 16:48 BP 130/96 H 08/13/22 16:48 Pulse Ox 98 08/13/22 16:48 O2 Del Method Room Air 08/13/22 16:48 BMI result Body Mass Index 27.8 Const: General: comfortable and no acute distress Orientation/consciousness: patient oriented x3 Neck: Neck: Yes no lymphadenopathy Resp: Auscultation: clear to auscultation bilaterally Cardio: Rhythm: regular rhythm GI: Other: rectal exam - large swollen hemorrhoids, very edematous, with thrombosed areas, about 3.5 cm, in size Palpation (GI): Soft to palpation, nontender and no guarding Neuro: General: patient oriented x3 Results Labs 08/13/22 17:58 08/13/22 17:58 Labs: All other labs normal. Assessment and Plan (1) External hemorrhoid, thrombosed: Status: Acute In view of this alrge thrombosed external hemorrhoid, I explained to her it may be best to proceed with I and D and evacuation. I reviewed the technique of this procedure as well as the risks benefits and alternatives. She was palced in left lateral decub position. The right buttock was retracted with wide tapte. The perianal area was prepped and draped in the usual sterile fashion. The perianal area was infiltrated with Lidocaine 1%. I used a blade 11 and fine scissors to open up the thombosed hemorrhoid and evacuation some clots. I then used silver nitrate sticks to cauterize the divided edges due to oozing. She tolerated the procedure well. She was given wound instructions. I will see her in the office tomorrow or Saturday for a wound check. Time Spent With Patient Time: Total time managing care of this patient today ____ minutes. Procedures Date of Service Date of Service: 08/13/22 Procedure Note Procedure Note: rocedure: incision and drainage of thrombosed external hemorrhoid Preop diagnosis: Thrombosed external hemorrhoid Postop diagnosis: The same She was placed in left lateral decubitus position. The right buttock was retracted with wide tape. The perianal area is prepped and draped. Lidocaine 1% was used for local anesthesia. I used a blade 11 to make an incision on the large thrombosed hemorrhoid. Clots were removed. Note of a lot of edema of the rest of the surrounding hemorrhoid. I cauterized the area with silver nitrate sticks because of oozing. Once hemostasis was confirmed, applied dry dressings on the area. She tolerated procedure well. There were no immediate complications estimated blood loss was about 20 cc.
[2022-08-13 18:05] LABS: MANUAL DIFF FLAG NO
[2022-08-13 18:13] LABS: Basophils Percent Auto 0.5 % (0-2); Eosinophils Absolute Auto 0.1 X10*3/uL (0.0-0.4); Eosinophils Percent Auto 0.7 % (0-4); Hematocrit 38.2 % (37.0-47.0); Hemoglobin 12.9 g/dl (12.0-16.0); Imm Gran Abs Auto 0.02 X10*3/uL (0.00-0.03); Imm Gran Pct Auto 0.3 % (0.0-0.4); Lymphocytes Absolute Auto 1.7 X10*3/uL (1.2-4.9); Mean Corpuscular HGB Conc 33.8 g/dl (31.0-35.0); Mean Corpuscular Hemoglobin 27.8 pg (27.0-33.0); Mean Corpuscular Volume 82.3 fL (80.0-98.0); Monocytes Absolute Auto 0.4 X10*3/uL (0.1-1.2); Monocytes Percent Auto 4.6 % (2-11); Neutrophils Absolute Auto 5.4 x10*3/uL (2.0-8.3); Neutrophils Percent Auto 70.9 % (45-73); Platelet Count 252 X10*3/uL (160-400); Red Blood Count 4.64 X10*6/uL (4.20-5.50); Red Cell Distribution Width 12.5 % (11.0-16.0); White Blood Count 7.6 X10*3/uL (4.8-10.8)
[2022-08-13 18:23] LABS: Alanine Aminotransferase 9 U/L (0-31); Albumin Level 4.2 g/dL (3.5-5.0); Alkaline Phosphatase 61 U/L (39-117); Anion Gap 14 (12-20); Aspartate Amino Transferase 15 U/L (5-31); Bilirubin Total 0.6 mg/dL (0.0-1.0); Blood Urea Nitrogen 12 mg/dL (9-16); Carbon Dioxide 22 mmol/L (22-29); Chloride 109 mmol/L (96-108); Creatinine Clr Calc Pharmacy 102.4; Estimated Glomerular Filt Rate > 60; Glucose Random 96 mg/dL (60-115); Potassium 3.8 mmol/L (3.3-5.1); Sodium 141 mmol/L (135-145); Total Protein 6.6 g/dL (6.5-8.0)
[2022-08-13] MEDS: bisacodyL 5 MG TABLET.DR 10 MG PO (19:48)
[2022-08-13 20:05] LABS: Appearance Urine Clear; Color Urine Yellow; Glucose Urine UA Negative (Negative); Leukocyte Esterase Urine Negative (Negative); Nitrite Urine Negative (Negative); PH 6.5 (5.0-9.0); UMIC TRIGGER UACC YES; Urine Blood Moderate (2+) (Negative); Urine Ketones 40 mg/dL (Negative); Urine Protein Negative (Neg-Trace)
[2022-08-13 20:06] LABS: UPreg QC Valid YES; Urine Pregnancy NEGATIVE (NEGATIVE)
[2022-08-13 20:08] LABS: HCG Quantitative < 2 mIU/mL
[2022-08-13 20:16] LABS: Bacteria Urine None Seen (None Seen); Hyaline Casts Urine 0-2 /LPF (0-2); RBC Urine 0-2 /HPF (0-2); Squamous Epithelial Cell Urine 0-2 /HPF (0-2); WBC Urine 0-5 /HPF (0-5)
[2022-08-13] MEDS: HYDROmorphone HCl 1 MG/ML SYRINGE IVPUSH (20:21)
[2022-08-13] MEDS: ondansetron HCL 4 MG/2 ML VIAL IVPUSH (20:21)
[2022-08-13 20:23] VITALS: BP 115/74; PULSE 74; RESP 20; TEMP 37; O2SAT 99
--- NOTE | 2022-08-13 20:26 | PC.NURSE ---
assumed care of pt aox4 pt tearful , laying on L side d/t post hemrrhoidectomy procedure prior to this nurse assuming care provider aware of pt pain this nurse requested med to address pt's nausea and pain mgmt IV line access est 20g to R AC
--- NOTE | 2022-08-13 21:15 | PC.NURSE ---
pt's pain level has decreased significantly from a 10/ to 4/, nausea resolved meds administered per MAR (raiza alcantara)
[2022-08-13] MEDS: Acetaminophen 1,000 MG/100 ML PIGGYBACK 400 MG IV (23:03)
[2022-08-13] MEDS: Metoclopramide HCl 10 MG/2 ML VIAL IVPUSH (23:15)
[2022-08-13] MEDS: diphenhydrAMINE HCL 50 MG/ML VIAL IVPUSH (23:15)
--- NOTE | 2022-08-13 23:31 | PC.NURSE ---
med rec completed
[2022-08-14] VITALS (9 sets, daily range): BP systolic 90–124; BP diastolic 62–86; PULSE 60–98; RESP 12–18; TEMP 36.4–37.1; O2SAT 96–99
[2022-08-14] MEDS: 0.9 % Sodium Chloride Flush 3 ML SYRINGE IVFLUSH ×4 (00:03→21:01)
[2022-08-14 01:46] LABS: COVID-19 Test Negative (Negative); IDNOW Serial# 6674DD1D
[2022-08-14] MEDS: ondansetron HCL 4 MG/2 ML VIAL IV ×3 (05:09→16:29)
[2022-08-14] MEDS: Morphine Sulfate 4 MG/ML CARTRIDGE 3 MG IVPUSH ×3 (05:10→15:00)
--- NOTE | 2022-08-14 05:17 | PC.NURSE ---
pt rates 7/10 rectal pain, administered morphine and zofran IV push per PRN order in JUL will CTM and assess efficacy of meds administered
[2022-08-14] MEDS: Acetaminophen 1,000 MG/100 ML PIGGYBACK 400 MG IV ×4 (05:40→21:48)
[2022-08-14] MEDS: Levothyroxine Sodium 75 MCG TABLET PO (05:40)
--- NOTE | 2022-08-14 07:17 | HE.PHANOTE ---
Home Meds confirmed with patient. 08/14/22 IP
--- NOTE | 2022-08-14 07:30 | P.HPGS_ITS ---
History of Present Illness History of Present Illness Date of Service: 08/16/22 Chief complaint: thrombosed hemorrhoids Narrative: Tab Maciel is a 27 year old female hemorrhoids, admitted last night because of large thrombosed hemorrhoids. She had been having pain for several days w hich worsened yesterday. She initially came earlier in the evening I had done drainage of her post hemorrhoids under local anesthesia in the ER. She had a very large external hemorrhoid which was thrombosed. She was sent home with oral pain medications but she says that she could not achieve good control of pain last night. She therefore came back to ER and was admitted for pain management. She still complains of pain on her thrombosed hemorrhoid but says that she has better pain control with IV pain medications. She has had a history of drainage of this thrombosed hemorrhoid 2-3 years ago as well.She says that she started to have hemorrhoid issues about 5 years ago and she was . Review of Systems Constitutional: Constitutional: Denies chills and Denies fever(s) Cardiovascular: Cardiovascular: Denies chest pain, Denies dyspnea and Denies dyspnea on exertion Respiratory: Respiratory: Denies cough, Denies dyspnea and Denies dyspnea on exertion Gastrointestinal: Gastrointestinal: Reports hematochezia, Denies change in bowel habits and Reports constipation Genitourinary: Genitourinary: Denies hematuria Musculoskeletal: Musculoskeletal: Denies back pain and Denies limited range of motion Neurologic: Denies focal weakness and Denies convulsions Psychiatric: Psychiatric: Denies depression and Denies mood swings PMFSH Past Medical History Medical History Adjustment disorder, unspecified Asthma BMI 37.0-37.9, adult BMI 38.0-38.9,adult BMI over 35 COVID-19 vaccine series completed Hirsutism History of postoperative nausea Hypothyroidism Morbid obesity Obesity Obesity (BMI 30-39.9) Steatosis, liver Syncope Vitamin A deficiency Vitamin B1 deficiency Vitamin B12 deficiency Vitamin D deficiency Family History Family History Father Diabetes mellitus HTN (hypertension) Mother Hirsutism Low TSH level Elevated cortisol level Surgical History Surgical History History of sleeve gastrectomy Hx of section Hx of knee surgery Social History Social History Household Members: Spouse and Children Housing: House Are you a primary wound care coordinator to a significant other at home: No Do you presently have visiting nurse or other home services: No Patient Tobacco Use Status: Never used Tobacco Smoked in Last 30 Days: No Use of substances other than those prescribed or required for medical reasons: No Currently Displaying Signs/Symptoms of Drug Intoxication Withdrawal: No Any prior treatment program specific to substance use: No Have you been hit, kicked, punched, or otherwise hurt by someone within the past year? 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 Cognitive needs: No Hearing needs: No Vision needs: Yes Meds Allergies Allergy/AdvReac Type Severity Reaction Status Date / Time No Known Allergies Allergy Verified 08/13/22 23:28 [No Known Allergies*] Active Medications: Current Medications Docusate Sodium (Docusate Sodium 100 Mg Capsule) 100 mg PO BID [facility] Acetaminophen (Ofirmev) 1,000 mg in 100 mls @ 400 mls/hr IV Q6H [facility] Last Infusion: 08/14/22 06:18 Dose: Infused Levothyroxine Sodium (Levothyroxine Sodium 75 Mcg Tablet) 75 mcg PO DAILY@0600 [facility] Last Admin: 08/14/22 05:40 Dose: 75 mcg Morphine Sulfate (Morphine Sulfate 4 Mg/Ml Cartridge) 3 mg IVPUSH Q3H PRN; Protocol PRN Reason: Pain, Severe (Pain Scale 7-10) Last Admin: 08/14/22 05:10 Dose: 3 mg Ondansetron HCl (Ondansetron Hcl 4 Mg/2 Ml Vial) 4 mg IV Q6H PRN PRN Reason: nausea Last Admin: 08/14/22 05:09 Dose: 4 mg Oxycodone HCl (Oxycodone Hcl Immed Release 5 Mg Tablet) 10 mg PO Q4H PRN PRN Reason: Pain, Moderate (Pain Scale 4-6 Pharmacy Consult (Consult Rx Perform Med Rec) 1 each MISCELLANE ONCE PRN PRN Reason: Consult order Sodium Chloride (0.9 % Sodium Chloride Flush 3 Ml Syringe) 3 ml IVFLUSH QSHIFT [facility] Last Admin: 08/14/22 00:03 Dose: 3 ml Home Medications Medication Instructions Recorded Confirmed Last Taken Type phentermine 7.5 mg-topiramate ER 1 cap PO DAILY 08/14/22 08/14/22 Unknown History 46 mg capsule,ext.release 24hr mphase (Qsymia) Physical Exam Vital Signs: Vital Signs: Last Vital Signs Temp 97.5 F 08/14/22 07:26 Pulse 79 08/14/22 07:26 Resp 16 08/14/22 07:26 BP 124/79 08/14/22 07:26 Pulse Ox 99 08/14/22 07:26 O2 Del Method Room Air 08/14/22 07:26 BMI result Body Mass Index 27.8 Const: General: comfortable and no acute distress Orientati on/consciousness: patient oriented x3 Neck: Neck: Yes no lymphadenopathy Resp: Auscultation: clear to auscultation bilaterally Cardio: Rhythm: regular rhythm GI: Other: Rectal exam - large thrombosed hemorrhoid, pain, with cauterized areas appearing dark, no cellulitis, no induration, no discharge Palpation (GI): Soft to palpation, nontender and no guarding Neuro: General: patient oriented x3 Results Results Labs: Short CBC 08/13/22 Range/Units 17:58 WBC 7.6 (4.8-10.8) X10*3/uL Hgb 12.9 (12.0-16.0) g/dl Hct 38.2 (37.0-47.0) % Plt Count 252 (160-400) X10*3/uL BMP 08/13/22 17:58 Sodium 141 Potassium 3.8 Chloride 109 H Carbon Dioxide 22 BUN 12 Creatinine 0.81 Calcium 9.0 Liver Function 08/13/22 Range/Units 17:58 Total Bilirubin 0.6 (0.0-1.0) mg/dL AST 15 (5-31) U/L ALT 9 (0-31) U/L Alkaline Phosphatase 61 (39-117) U/L Albumin 4.2 (3.5-5.0) g/dL Urine 08/13/22 08/13/22 Range/Units 19:52 19:52 Urine Color Yellow Urine Appearance Clear Urine pH 6.5 (5.0-9.0) Ur Specific [place] 1.020 (1.005-1.025) Urine Protein Negative (Neg-Trace) mg/dL Urine Glucose (UA) Negative (Negative) mg/dL Urine Test NEGATIVE (NEGATIVE) Assessment and Plan (1) External hemorrhoid, thrombosed: Status: Acute She has a very large thrombosed and had some drainage done under local anesthesia yesterday. she was admitted for pain control . She says she is better with IV pain meds at this time. I will order for hot Sitz baths as well. Her hemorrhoid is still edematous. I told her that we would hold off on formal hemorrhoidectomy at this time until the edema and inflammation settles down. She will be admitted because of severe pain. Time Spent With Patient Time: Total time managing care of this patient today ____ minutes. Quality Stroke Does the patient have a stroke diagnosis?: No VTE Prior VTE?: No VTE Risk Level:: Medical - low VTE Device Contraindication: Treatment Not Indicated VTE Drug Contraindication: Treatment Not Indicated Procedures Date of Service Date of Service: 08/14/22
[2022-08-14] MEDS: Docusate Sodium 100 MG CAPSULE PO ×2 (09:41→21:00)
[2022-08-14] MEDS: oxyCODONE HCl Immed Release 5 MG TABLET 10 MG PO ×3 (11:11→21:47)
[2022-08-15 04:00] VITALS: BP 127/62; PULSE 86; RESP 18; TEMP 37; O2SAT 94
[2022-08-15] MEDS: Acetaminophen 1,000 MG/100 ML PIGGYBACK 400 MG IV ×3 (05:17→17:01)
[2022-08-15] MEDS: Levothyroxine Sodium 75 MCG TABLET PO (05:18)
[2022-08-15] MEDS: oxyCODONE HCl Immed Release 5 MG TABLET 10 MG PO ×3 (05:20→14:55)
[2022-08-15 07:27] VITALS: BP 107/56; PULSE 88; RESP 18; TEMP 36.7; O2SAT 98
--- NOTE | 2022-08-15 08:29 | MHC.CM.PN ---
Addendum entered by Elyssa James 08/15/22 08:34: CORRECTION: COVID VAX X2 WITH [employer]. Original Note: [facility] DELIVERED PT LIVES IN [facility] WITH SPOUSE AND CHILDREN. INDEPENDENT AT BASELINE. F/T EMPLOYED. NO HCP BUT WILLING TO COMPLETE ONE. + COVID VAX X [address] TURNER AT [facility] [place]. DP: HOME, NO SERVICES ANTICIPATED. FAMILY WILL TRANSPORT HOME.
--- NOTE | 2022-08-15 08:44 | PM.PNGS ---
Subjective Subjective Date of Service: 08/16/22 Interval history: She is still but was able to get some sleep last night pain a little better Physical Exam Vital Signs: Vital Signs: Last Vital Signs Temp 98.1 F 08/15/22 07:27 Pulse 88 08/15/22 07:27 Resp 18 08/15/22 07:27 BP 107/56 L 08/15/22 07:27 Pulse Ox 98 08/15/22 07:27 O2 Del Method Room Air 08/15/22 07:27 BMI result Body Mass Index 27.8 Const: General: comfortable and no acute distress Orientation/consciousness: patient oriented x3 Neck: Neck: Yes no lymphadenopathy Resp: Auscultation: clear to auscultation bilaterally Cardio: Rhythm: regular rhythm GI: Other: still with edema of the large external hemorrhoid, although better, no discharge, no pus, no cellulitis no bleeding Palpation (GI): Soft to palpation, nontender and no guarding Neuro: General: patient oriented x3 Objective Data Active Medications Docusate Sodium (Docusate Sodium 100 Mg Capsule) 100 mg PO BID [facility] Last Admin: 08/14/22 21:00 Dose: 100 mg Documented By: ANTOIC Acetaminophen (Ofirmev) 1,000 mg in 100 mls @ 400 mls/hr IV Q6H [facility] Last Infusion: 08/15/22 05:43 Dose: 0 mls/hr Documented By: EVELYNE Levothyroxine Sodium (Levothyroxine Sodium 75 Mcg Tablet) 75 mcg PO DAILY@0600 [facility] Last Admin: 08/15/22 05:18 Dose: 75 mcg Documented By: EVELYNE Morphine Sulfate (Morphine Sulfate 4 Mg/Ml Cartridge) 3 mg IVPUSH Q3H PRN; Protocol PRN Reason: Pain, Severe (Pain Scale 7-10) Last Admin: 08/14/22 15:00 Dose: 3 mg Documented By: ROXY Ondansetron HCl (Ondansetron Hcl 4 Mg/2 Ml Vial) 4 mg IV Q6H PRN PRN Reason: nausea Last Admin: 08/14/22 16:29 Dose: 4 mg Documented By: SARAH Oxycodone HCl (Oxycodone Hcl Immed Release 5 Mg Tablet) 10 mg PO Q4H PRN PRN Reason: Pain, Moderate (Pain Scale 4-6 Last Admin: 08/15/22 05:20 Dose: 10 mg Documented By: EVELYNE Pharmacy Consult (Consult Rx Perform Med Rec) 1 each MISCELLANE ONCE PRN PRN Reason: Consult order Sodium Chloride (0.9 % Sodium Chloride Flush 3 Ml Syringe) 3 ml IVFLUSH QSHIFT [facility] Last Admin: 08/14/22 21:01 Dose: 3 ml Documented By: EVELYNE Labs 08/13/22 17:58 08/13/22 17:58 Procedures Date of Service Date of Service: 08/15/22 Progress Note: A&P Assessment and plan (1) External hemorrhoid, thrombosed: Status: Acute Assessment and Plan: She has a large thrombosed hemorrhoid with continued edema. She continues to have pain. She does not feel that she will be able to go home with this much pain although this is improving. I explained the option of proceeding with hemorrhoidectomy for definitive treatment. She wants this is an option for quicker recovery as well and return to work. I did tell her that the hemorrhoid is still edematous so I would allow this to continue tos hrink proceeding with hemorrhoidectomy. We will plan on doing this tomorrow. She understands the technique of hemorrhoidectomy. She was aware of the risks including but not limited to bleeding, infections, postop pain, poor healing, as well as the benefits and alternatives She understands the what to anticipate postop with regards to care. Time Spent With Patient Time: Total time managing care of this patient today ____ minutes. Quality Stroke Does the patient have a stroke diagnosis?: No VTE Prior VTE?: No VTE Risk Level:: Medical - low VTE Device Contraindication: Treatment Not Indicated VTE Drug Contraindication: Treatment Not Indicated
[2022-08-15] MEDS: Docusate Sodium 100 MG CAPSULE PO ×2 (09:51→22:15)
[2022-08-15] MEDS: 0.9 % Sodium Chloride Flush 3 ML SYRINGE IVFLUSH ×2 (09:52→14:55)
[2022-08-15 15:20] VITALS: BP 112/65; PULSE 99; RESP 20; TEMP 36.3; O2SAT 97
[2022-08-15 19:17] VITALS: BP 105/67; PULSE 73; RESP 20; TEMP 36.6; O2SAT 99
[2022-08-15 22:15] VITALS: RESP 18
[2022-08-15] MEDS: Morphine Sulfate 4 MG/ML CARTRIDGE 3 MG IVPUSH (22:15)
[2022-08-16] VITALS (18 sets, daily range): BP systolic 105–195; BP diastolic 61–90; PULSE 61–95; RESP 12–20; TEMP 36.4–37.1; O2SAT 94–100
[2022-08-16] MEDS: oxyCODONE HCl Immed Release 5 MG TABLET 10 MG PO ×4 (00:13→19:36)
[2022-08-16] MEDS: 0.9 % Sodium Chloride Flush 3 ML SYRINGE IVFLUSH ×3 (00:17→14:57)
[2022-08-16] MEDS: Acetaminophen 1,000 MG/100 ML PIGGYBACK 400 MG IV ×3 (06:18→21:26)
[2022-08-16] MEDS: Levothyroxine Sodium 75 MCG TABLET PO (06:18)
--- NOTE | 2022-08-16 11:32 | P.CONAN_ITS ---
HPI - Anesthesia Eval Consult details Narrative: for hemorrhoidectomy PMFSH Active Problems Active Problems: All Active Problems (Updated 08/13/22 @ 17:39 by FERNANDA Henry) External hemorrhoid, thrombosed (Acute) Constipation (Acute) Sprain of right index finger (Acute) Right hand pain (Acute) Right shoulder pain (Acute) Syncope (Acute) Hirsutism (Acute) BMI 30.0-30.9,adult (Acute) Obesity (Acute) Vitamin D deficiency (Acute) BMI 33.0-33.9,adult (Acute) Steatosis, liver (Acute) Asthma (Acute) S/P laparoscopic sleeve gastrectomy (Acute) Morbid obesity (Acute) Hypothyroidism (Acute) Past Medical History Medical History Adjustment disorder, unspecified Asthma BMI 37.0-37.9, adult BMI 38.0-38.9,adult BMI over 35 COVID-19 vaccine series completed Hirsutism History of postoperative nausea Hypothyroidism Morbid obesity Obesity Obesity (BMI 30-39.9) Steatosis, liver Syncope Vitamin A deficiency Vitamin B1 deficiency Vitamin B12 deficiency Vitamin D deficiency Patient : No Family History Family History Father Diabetes mellitus HTN (hypertension) Mother Hirsutism Low TSH level Elevated cortisol level Family history of problems with anesthesia: No Surgical History Surgical History History of sleeve gastrectomy Hx of section Hx of knee surgery History of Problems with Anesthesia: No Social History Social History Household Members: Spouse and Children Housing: House Are you a primary plant care worker to a significant other at home: No Do you presently have visiting nurse or other home services: No Patient Tobacco Use Status: Never used Tobacco Smoked in Last 30 Days: No Use of substances other than those prescribed or required for medical reasons: No Currently Displaying Signs/Symptoms of Drug Intoxication Withdrawal: No Any prior treatment program specific to substance use: No Have you been hit, kicked, punched, or otherwise hurt by someone within the past year? 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 Cognitive needs: No Hearing needs: No Vision needs: Yes Meds Allergies Allergy/AdvReac Type Severity Reaction Status Date / Time No Known Allergies Allergy Verified 08/13/22 23:28 [No Known Allergies*] Active Medications: Current Medications Docusate Sodium (Docusate Sodium 100 Mg Capsule) 100 mg PO BID [facility] Last Admin: 08/16/22 08:34 Dose: Not Given Acetaminophen (Ofirmev) 1,000 mg in 100 mls @ 400 mls/hr IV Q6H [facility] Last Infusion: 08/16/22 06:51 Dose: Infused Levothyroxine Sodium (Levothyroxine Sodium 75 Mcg Tablet) 75 mcg PO DAILY@0600 [facility] Last Admin: 08/16/22 06:18 Dose: 75 mcg Morphine Sulfate (Morphine Sulfate 4 Mg/Ml Cartridge) 3 mg IVPUSH Q3H PRN; Protocol PRN Reason: Pain, Severe (Pain Scale 7-10) Last Admin: 08/15/22 22:15 Dose: 3 mg Ondansetron HCl (Ondansetron Hcl 4 Mg/2 Ml Vial) 4 mg IV Q6H PRN PRN Reason: nausea Last Admin: 08/14/22 16:29 Dose: 4 mg Oxycodone HCl (Oxycodone Hcl Immed Release 5 Mg Tablet) 10 mg PO Q4H PRN PRN Reason: Pain, Moderate (Pain Scale 4-6 Last Admin: 08/16/22 08:35 Dose: 10 mg Pharmacy Consult (Consult Rx Perform Med Rec) 1 each MISCELLANE ONCE PRN PRN Reason: Consult order Sodium Chloride (0.9 % Sodium Chloride Flush 3 Ml Syringe) [facility] Last Admin: 08/16/22 08:35 Dose: 3 ml Home Medications Medication Instructions Recorded Confirmed Last Taken Type phentermine 7.5 mg-topiramate ER 1 cap PO DAILY 08/14/22 08/14/22 Unknown History 46 mg capsule,ext.release 24hr mphase (Qsymia) Exam Exam Date and Time: August 16, 2022 1132 Height,Weight and Vital Signs: Height 5 ft 4 in Weight 73.482 kg Last Vital Signs Temp 97.9 F 08/16/22 10:20 Pulse 84 08/16/22 10:20 Resp 18 08/16/22 10:20 BP 119/81 08/16/22 10:20 Pulse Ox 98 08/16/22 10:20 O2 Del Method Room Air 08/16/22 10:20 O2 Flow Rate 1 08/16/22 04:00 Pertinent Lab Results Pertinent Lab Results: Laboratory Tests 08/13/22 08/13/22 08/13/22 17:58 17:58 19:52 WBC 7.6 RBC 4.64 Hgb 12.9 Hct 38.2 MCV 82.3 MCH 27.8 MCHC 33.8 RDW 12.5 Plt Count 252 MPV 10.0 Immature Gran % (Auto) 0.3 Neut % (Auto) 70.9 Lymph % (Auto) 23.0 Richardson % (Auto) 4.6 Eos % (Auto) 0.7 Baso % (Auto) 0.5 Lymph # (Auto) 1.7 Richardson # (Auto) 0.4 Eos # (Auto) 0.1 Baso # (Auto) 0.0 Abs Immat Gran (auto) 0.02 Absolute Neuts (auto) 5.4 Absolute Nucleated RBC 0.000 Nucleated RBC % (auto) 0.0 Sodium 141 Potassium 3.8 Chloride 109 H Carbon Dioxide 22 Anion Gap 14 BUN 12 Creatinine 0.81 Estim Creat Clear Calc 102.4 Estimated GFR > 60 Random Glucose 96 Calcium 9.0 Magnesium 2.0 Total Bilirubin 0.6 AST 15 ALT 9 Alkaline Phosphatase 61 Total Protein 6.6 Albumin 4.2 Beta HCG, Quant < 2 Urine Color Yellow Urine Appearance Clear Urine pH 6.5 Ur Specific [place] 1.020 Urine Protein Negative Urine Glucose (UA) Negative Urine Ketones 40 Urine Blood Moderate (2+) H Urine Nitrite Negative Ur Leukocyte Esterase Negative Urine RBC 0-2 Urine WBC 0-5 Ur Squamous Epith Cells 0-2 Urine Bacteria None Seen Hyaline Casts 0-2 Urine Test COVID-19 ([facility]) COVID-19 Clin Com 08/13/22 08/14/22 19:52 01:30 WBC RBC Hgb Hct MCV MCH MCHC RDW Plt Count MPV Immature Gran % (Auto) Neut % (Auto) Lymph % (Auto) Richardson % (Auto) Eos % (Auto) Baso % (Auto) Lymph # (Auto) Richardson # (Auto) Eos # (Auto) Baso # (Auto) Abs Immat Gran (auto) Absolute Neuts (auto) Absolute Nucleated RBC Nucleated RBC % (auto) Sodium Potassium Chloride Carbon Dioxide Anion Gap BUN Creatinine Estim Creat Clear Calc Estimated GFR Random Glucose Calcium Magnesium Total Bilirubin AST ALT Alkaline Phosphatase Total Protein Albumin Beta HCG, Quant Urine Color Urine Appearance Urine pH Ur Specific [place] Urine Protein Urine Glucose (UA) Urine Ketones Urine Blood Urine Nitrite Ur Leukocyte Esterase Urine RBC Urine WBC Ur Squamous Epith Cells Urine Bacteria Hyaline Casts Urine Test NEGATIVE COVID-19 ([facility]) Negative COVID-19 Clin Com See Note Airway Mallampati Class: I TM Dist: >3cm Neck ROM: Full Heart: ok Lungs: ok Assessment and Plan Assessment Anesthesia Assessment: Anesthesia Plan Discussed and Chart Reviewed Final Anesthetic Review Family History of Problems with Anesthesia: No History of Problems with Anesthesia: No NPO: Yes ASA Class: II Final Preanesthetic Review: No Changes in Pt Med Stat, Meds/Allgs Chart Reviewed, Consent Obtained/Reviewed and Anes Risks/Benef Reviewed Patient Risk: Low Procedure Risk: Intermediate Anesthetic Plan Anesthetic Plan: GA and Agree w/ Assess. and Plan Disposition: Standard PACU
--- NOTE | 2022-08-16 12:13 | P.OP_ITS ---
Operative Note Operative Note Date of Service: 08/16/22 Narrative: Preop diagnosis: Large thrombosed external hemorrhoid Postop diagnosis: Large thrombosed external hemorrhoid Procedure: exam under anesthesia, hemorrhoidectomy of a large thrombosed external hemorrhoid Surgeon: Saturnino Sykes MD The patient is a 27 year female who has had this large external thrombosed hemorrhoid. She had been admitted because of severe pain. I had done an I and D but this was adequate and she had persistent pain so I admitted her and had some resolution of the severe edema prior to removing this large thrombosed hemorrhoid as she had persistent pain. She understood the technique of the planned procedure and was aware of the risks, benefits, and alternatives She was brought to the operating room. She was placed in prone domo-knife position under general anesthesia via LMA. The buttocks were retracted with wide tape laterally. The perianal area was prepped draped usual fashion. I infiltrated the perianal area with lidocaine 1%.Examination showed this large still edematous external hemorrhoid with areas of thrombosis. This measured about 3.5 cm. I inserted a Maryann Mcnair retractor. I examined the anal canal circumferentially. There were no other large hemorrhoidal columns. There were no lesions anal canal. Again this large thrombosed external hemorrhoid with edema is noted on the anterior aspect towards the right. I proceeded to apply a Ortiz grasper on this large hemorrhoidal column to retract this. I made a [id number] stitch its pedicle proximally. This was done using chromic 3-0. I made an incision around this hemorrhoidal column us ing blade [address] the perianal skin. I excised this hemorrhoidal column above the plane of the sphincters along this incision. This was sent as a specimen. Again there was note of thrombosed areas along with edema of this hemorrhoid. Closed the incision with a running chromic 3-0 stitch. Multiple additional hemostatic [id number] sutures were placed as well. Once hemostasis was confirmed, infiltrated the perianal area with Marcaine 0.5% for postop analgesia. A rolled Gelfoam was position in the anal canal for additional hemostasis. I infiltrated the perianal area with Marcaine 0.5% for postop old GURPREET. The procedure was completed The patient tolerated procedure well. There were no immediate complications. Initial and final counts of sponges and instruments were correct. Estimated blood loss was about 20 cc. The patient was extubated without difficulty and transferred to the recovery room with stable vital signs.
[2022-08-16] MEDS: HYDROmorphone HCl 0.5 MG/0.5 ML SYRINGE IVPUSH ×2 (12:38→12:58)
--- NOTE | 2022-08-16 14:25 | PM.EVENT ---
Event Note Date of Service: 08/16/22 Event Note: Seen postop She had undergone hemorrhoidectomy for large thrombosed hemorrhoid earlier Seems to have adequate pain control She has a packing in place No bleeding Pain management Possible DC home tomorrow depending on pain control Time Spent With Patient Time: Total time managing care of this patient today ____ minutes.
[2022-08-16] MEDS: Morphine Sulfate 4 MG/ML CARTRIDGE 3 MG IVPUSH ×2 (18:31→21:26)
[2022-08-16] MEDS: Docusate Sodium 100 MG CAPSULE PO (21:31)
[2022-08-17] MEDS: oxyCODONE HCl Immed Release 5 MG TABLET 10 MG PO ×2 (02:22→12:00)
[2022-08-17 02:59] VITALS: BP 90/52; PULSE 60; RESP 18; TEMP 36.4; O2SAT 96
[2022-08-17] MEDS: Levothyroxine Sodium 75 MCG TABLET PO (04:32)
[2022-08-17] MEDS: Morphine Sulfate 4 MG/ML CARTRIDGE 3 MG IVPUSH ×5 (04:33→21:26)
[2022-08-17 07:29] VITALS: BP 104/69; PULSE 85; RESP 18; TEMP 36.3; O2SAT 98
[2022-08-17] MEDS: 0.9 % Sodium Chloride Flush 3 ML SYRINGE IVFLUSH ×2 (07:41→16:54)
[2022-08-17] MEDS: Docusate Sodium 100 MG CAPSULE PO ×2 (07:41→19:39)
[2022-08-17] MEDS: Acetaminophen 1,000 MG/100 ML PIGGYBACK 400 MG IV (07:45)
--- NOTE | 2022-08-17 08:19 | P.PNGS_ITS ---
Subjective Subjective Date of Service: 08/17/22 Interval history: has pain on hemorrhoidectomy site she does state that she has not had pain meds for several hours now no fever Physical Exam Vital Signs: Vital Signs: Last Vital Signs Temp 97.4 F 08/17/22 07:29 Pulse 85 08/17/22 07:29 Resp 18 08/17/22 07:29 BP 104/69 08/17/22 07:29 Pulse Ox 98 08/17/22 07:29 O2 Del Method Room Air 08/17/22 07:29 O2 Flow Rate 2 08/16/22 13:22 BMI result Body Mass Index 27.8 Const: General: comfortable and no acute distress Resp: Effort & Inspection: normal respiratory effort Cardio: Rate: regular rate GI: Other: rectal exam - hemorrhoidectomy site dry, no cellulitis, no discharge, mild residual edema Objective Data Active Medications Acetaminophen (Acetaminophen 325 Mg Tablet) 650 mg PO ONCE PRN PRN Reason: Pain, Mild (Pain Scale 1-3) Docusate Sodium (Docusate Sodium 100 Mg Capsule) 100 mg PO BID [facility] Last Admin: 08/17/22 07:41 Dose: 100 mg Documented By: FRANCESCA Fentanyl (Fentanyl Citrate/Pf 100 Mcg/2 Ml Vial) 50 mcg IVPUSH Q5M PRN; Protocol PRN Reason: Pain, Severe (Pain Scale 7-10) Hydromorphone HCl (Hydromorphone Hcl 0.5 Mg/0.5 Ml Syringe) 0.5 mg IVPUSH Q5M PRN; Protocol PRN Reason: Pain, Severe (Pain Scale 7-10) Last Admin: 08/16/22 12:58 Dose: 0.25 mg Documented By: LINDA Comments: Acetaminophen (Ofirmev) 1,000 mg in 100 mls @ 400 mls/hr IV Q6H [facility] Stop: 08/17/22 10:29 Last Admin: 08/17/22 07:45 Dose: 400 mls/hr Documented By: FRANCESCA Levothyroxine Sodium (Levothyroxine Sodium 75 Mcg Tablet) 75 mcg PO DAILY@0600 [facility] Last Admin: 08/17/22 04:32 Dose: 75 mcg Documented By: HUI Morphine Sulfate (Morphine Sulfate 4 Mg/Ml Cartridge) 3 mg IVPUSH Q3H PRN; Protocol PRN Reason: Pain, Severe (Pain Scale 7-10) Last Admin: 08/17/22 07:51 Dose: 3 mg Documented By: FRANCESCA Ondansetron HCl (Ondansetron Hcl 4 Mg/2 Ml Vial) 4 mg IV Q6H PRN PRN Reason: nausea Last Admin: 08/14/22 16:29 Dose: 4 mg Documented By: SARAH Ondansetron HCl (Ondansetron Hcl 4 Mg/2 Ml Vial) 4 mg IVPUSH ONCE PRN PRN Reason: Nausea and Vomiting Oxycodone HCl (Oxycodone Hcl Immed Release 5 Mg Tablet) 10 mg PO Q4H PRN PRN Reason: Pain, Moderate (Pain Scale 4-6 Last Admin: 08/17/22 02:22 Dose: 10 mg Documented By: HUI Pharmacy Consult (Consult Rx Perform Med Rec) 1 each MISCELLANE ONCE PRN PRN Reason: Consult order Sodium Chloride (0.9 % Sodium Chloride Flush 3 Ml Syringe) 3 ml IVFLUSH [facility] Last Admin: 08/17/22 07:41 Dose: 3 ml Documented By: FRANCESCA Labs 08/13/22 17:58 08/13/22 17:58 Procedures Date of Service Date of Service: 08/17/22 Progress Note: A&P Assessment and plan (1) External hemorrhoid, thrombosed: Status: Acute Assessment and Plan: status post hemorrhoidectomy fo a very large thrombosed hemorrhoid hemorrhoidectomy site dry warm soaks today pain management on Colace b.i.d. as she has chronic constipation okay to DC home once with good pain control Time Spent With Patient Time: Total time managing care of this patient today ____ minutes. Quality Stroke Does the patient have a stroke diagnosis?: No VTE Prior VTE?: No VTE Risk Level:: Medical - low VTE Device Contraindication: Treatment Not Indicated VTE Drug Contraindication: Treatment Not Indicated
[2022-08-17 11:05] VITALS: BP 102/61; PULSE 100; RESP 18; TEMP 36.6; O2SAT 97
--- NOTE | 2022-08-17 12:44 | HO.POSTANES ---
Post Anesthesia Evaluation Post Anesthesia Evaluation Vital Signs: Vital Signs Temp Pulse Resp BP Pulse Ox O2 Del Method 08/17/22 11:05 97.9 F 100 18 102/61 97 Room Air 08/17/22 07:29 97.4 F 85 18 104/69 98 Room Air 08/17/22 02:59 97.6 F 60 18 90/52 L 96 Room Air Anesthesia: General Mental Status: Awake Pain Control: Satisfactory Nausea/Vomiting: None Hydration: Adequate Anesthesia-Related Issues: No Anes. Related Issues
[2022-08-17] MEDS: polyethylene glycoL 3350 17 GM POWD.PACK PO (13:23)
[2022-08-17 15:23] VITALS: BP 107/75; PULSE 81; RESP 18; TEMP 36.1; O2SAT 99
[2022-08-17 19:21] VITALS: BP 114/82; PULSE 76; RESP 18; TEMP 36.6; O2SAT 97
[2022-08-17 23:15] VITALS: BP 100/60; PULSE 72; RESP 20; TEMP 37.4; O2SAT 97
[2022-08-18] MEDS: Morphine Sulfate 4 MG/ML CARTRIDGE 3 MG IVPUSH ×2 (00:24→08:35)
[2022-08-18] MEDS: Acetaminophen 325 MG TABLET 650 MG PO (00:26)
[2022-08-18] MEDS: oxyCODONE HCl Immed Release 5 MG TABLET 10 MG PO (02:56)
[2022-08-18 04:00] VITALS: BP 100/60; PULSE 82; RESP 20; TEMP 36.1; O2SAT 95
[2022-08-18] MEDS: Levothyroxine Sodium 75 MCG TABLET PO (06:34)
[2022-08-18 07:50] VITALS: BP 96/73; PULSE 78; RESP 19; TEMP 36.4; O2SAT 95
[2022-08-18] MEDS: 0.9 % Sodium Chloride Flush 3 ML SYRINGE IVFLUSH (08:35)
[2022-08-18] MEDS: Docusate Sodium 100 MG CAPSULE PO (08:35)
--- NOTE | 2022-08-18 09:32 | P.PNGS_ITS ---
Subjective Subjective Date of Service: 08/18/22 Interval history: pain better controlled had BM last night with subsequent pain feels constipated good PO intake Physical Exam Vital Signs: Vital Signs: Last Vital Signs Temp 97.6 F 08/18/22 07:50 Pulse 78 08/18/22 07:50 Resp 19 08/18/22 07:50 BP 96/73 08/18/22 07:50 Pulse Ox 95 08/18/22 07:50 O2 Del Method Room Air 08/18/22 07:50 O2 Flow Rate 2 08/16/22 13:22 BMI result Body Mass Index 27.8 Const: General: comfortable and no acute distress Resp: Effort & Inspection: normal respiratory effort Cardio: Rate: regular rate GI: Other: rectal - hemorrhoidectomy site healing well, no discharge, no bleeding, no cellulitis Palpation (GI): Soft to palpation, not firm and nontender Objective Data Active Medications Docusate Sodium (Docusate Sodium 100 Mg Capsule) 100 mg PO BID [facility] Last Admin: 08/18/22 08:35 Dose: 100 mg Documented By: LAVON Fentanyl (Fentanyl Citrate/Pf 100 Mcg/2 Ml Vial) 50 mcg IVPUSH Q5M PRN; Protocol PRN Reason: Pain, Severe (Pain Scale 7-10) Hydromorphone HCl (Hydromorphone Hcl 0.5 Mg/0.5 Ml Syringe) 0.5 mg IVPUSH Q5M PRN; Protocol PRN Reason: Pain, Severe (Pain Scale 7-10) Last Admin: 08/16/22 12:58 Dose: 0.25 mg Documented By: LINDA Comments: Levothyroxine Sodium (Levothyroxine Sodium 75 Mcg Tablet) 75 mcg PO DAILY@0600 [facility] Last Admin: 08/18/22 06:34 Dose: 75 mcg Documented By: BARRETT Morphine Sulfate (Morphine Sulfate 4 Mg/Ml Cartridge) 3 mg IVPUSH Q3H PRN; Protocol PRN Reason: Pain, Severe (Pain Scale 7-10) Last Admin: 08/18/22 08:35 Dose: 3 mg Documented By: LAVON Ondansetron HCl (Ondansetron Hcl 4 Mg/2 Ml Vial) 4 mg IV Q6H PRN PRN Reason: nausea Last Admin: 08/14/22 16:29 Dose: 4 mg Documented By: SARAH Ondansetron HCl (Ondansetron Hcl 4 Mg/2 Ml Vial) 4 mg IVPUSH ONCE PRN PRN Reason: Nausea and Vomiting Oxycodone HCl (Oxycodone Hcl Immed Release 5 Mg Tablet) 10 mg PO Q4H PRN PRN Reason: Pain, Moderate (Pain Scale 4-6 Last Admin: 08/18/22 02:56 Dose: 10 mg Documented By: BARRETT Pharmacy Consult (Consult Rx Perform Med Rec) 1 each MISCELLANE ONCE PRN PRN Reason: Consult order Polyethylene Glycol (Polyethylene Glycol 3350 17 Gm Powd.Pack) 17 gm PO ONCE ONE Stop: 08/18/22 09:16 Sodium Chloride (0.9 % Sodium Chloride Flush 3 Ml Syringe) 3 ml IVFLUSH [facility] Last Admin: 08/18/22 08:35 Dose: 3 ml Documented By: LAVON Labs 08/13/22 17:58 08/13/22 17:58 Procedures Date of Service Date of Service: 08/18/22 Progress Note: A&P Assessment and plan (1) External hemorrhoid, thrombosed: Status: Acute Assessment and Plan: s/p hemorrhoidectomy pain better controlled she feels ready to go home later today continue hot soaks at home stool softeners oral pain meds office ffup Time Spent With Patient Time: Total time managing care of this patient today ____ minutes. Quality Stroke Does the patient have a stroke diagnosis?: No VTE Prior VTE?: No VTE Risk Level:: Medical - low VTE Device Contraindication: Treatment Not Indicated VTE Drug Contraindication: Treatment Not Indicated
[2022-08-18] MEDS: polyethylene glycoL 3350 17 GM POWD.PACK PO (09:40)
[2022-08-18 12:00] VITALS: BP 107/60; PULSE 91; RESP 18; TEMP 36.3; O2SAT 96
--- NOTE | 2022-08-18 13:33 | MHC.CM.PN ---
DP: PT HAS BEEN MEDICALLY CLEARED FOR DC HOME, NO SERVICES. FAMILY WILL TRANSPORT
--- NOTE | 2022-08-18 13:35 | PC.NURSE ---
pt A&O x 4,vitals stable, IV out. discharge instruction given to pt with and children at bedside. pt verbalize understanding.
--- NOTE | 2022-08-20 14:44 | P.DS_ITS ---
DS: Providers Provider Date of Service: 08/18/22 Date of admission: 08/13/22 22:44 Primary care physician: Jonas Tirado MD DS: Diagnosis Discharge Diagnosis (1) External hemorrhoid, thrombosed: Status: Acute DS: Summary Hospital Course Hospital Course: 27-year-old female, admitted on 08/13/2022 because of thrombosed hemorrhoid with significant edema and pain. I had evacuated part of the thrombosed in the ED under local anesthesia but she had persistent pain so I had her admitted for pain control. The large thrombosed hemorrhoid was about 3.5 cm in very edematous so I kept her in the hospital for pain control. She had persistent pain and wanted to proceed with hemorrhoidectomy which I did on August 16, 2022. At that time, the swelling had improved. She stated hospital until postop day 2 for pain control requiring IV morphine.She otherwise did well postoperatively. She did not have any fever during her hospital stay.. Time Spent with Patient Time attestation: Total time managing care of this patient today ____ minutes. Discharge coordination time: Less than 30 minutes Quality: Safe Use of Opioids Does Pt have an Active Cancer Diagnosis on the Problem List?: No Quality: Stroke Does the patient have a stroke diagnosis?: No Physical Exam Vital Signs: Vital Signs: Last Vital Signs Temp 97.4 F 08/18/22 12:00 Pulse 91 08/18/22 12:00 Resp 18 08/18/22 12:00 BP 107/60 08/18/22 12:00 Pulse Ox 96 08/18/22 12:00 O2 Del Method Room Air 08/18/22 12:00 O2 Flow Rate 2 08/16/22 13:22 BMI result Body Mass Index 27.8 Const: General: comfortable and no acute distress Orientation/consciousness: patient oriented x3 Neck: Neck: Yes no lymphadenopathy Resp: Auscultation: clear to auscultation bilaterally Cardio: Rhythm: regular rhythm GI: Other: Rectal exam shows the hemorrhoidectomy site to be healing well, infected, no cellulitis, no induration Palpation (GI): Soft to palpation, nontender and no guarding Neuro: General: patient oriented x3 DS: Data Data Completed and Pending Completed studies during hospitalization [Text1]: Pending at discharge 08/16/22 12:08 Surgical [PTH] Routine Procedures Excision of Stomach, Percutaneous Endoscopic Approach, Vertical (01/12/21) Discharge Plan Discharge Patient Disposition: Home, Self-Care Referrals: [facility] [place] General Surgeons [Provider Group] - 1 day Saturnino Sykes MD [Physician] - 2 Weeks Discharge Medications: New docusate sodium [Colace] 100 mg capsule 100 mg PO BID Qty: 60 2RF oxycodone-acetaminophen [Percocet] 5-325 mg tablet 1 tab PO Q4-6H PRN (Reason: pain) Qty: 30 0RF Rx Instructions: Partial Fill upon patient request. polyethylene glycol 3350 [Miralax] 17 gram/dose powder 17 g PO DAILY Qty: 119 0RF Continued albuterol sulfate 90 mcg/actuation HFA aerosol inhaler 2 puff inhalation Q6H PRN (Reason: wheezing) 30 Days Qty: 8.5 4RF levothyroxine 75 mcg tablet 75 mcg PO DAILY 30 Days Qty: 30 3RF Qsymia 7.5-46 mg Capsule, Er Multiphase 24 Hr 1 cap PO DAILY Discharge Orders: Discharge Order (Routine); Ordered 08/18/22 Ordered By: Saturnino Sykes Diet: Advance to usual diet Activity on Discharge: No heavy lifting Stand Alone Forms: Patient Portal Discharge page Activity Restrictions/Additional Instructions: hot Sitz baths 3 times a day If the incision area is tender, you may apply an ice pack for short intervals (N o more than 20 minutes on, followed by at least 20 minutes off). Do not apply heat. Do not use creams, lotions, or topical antibiotics unless instructed to do so by your surgeon. These can cause infection or allergic reaction. No strenuous activities Call the office for follow-up in 2 weeks - with Dr. Sykes Call Your Doctor If: -Your temperature exceeds 101.5? F -You experience excessive pain or swelling -You have an unexpected reaction to medication -You have excessive bleeding -You experience continued vomiting/nausea -Your incision begins to separate -Your incision shows signs of infection such as increased redness, swelling, excessive pain, drainage (light blood or clear fluid is normal) or heat Care Plan Goals: pain control stool softeners for constipation Health Concerns: postop pain Plan of Treatment: Sitz baths oral pain meds Assessment: doing well Patient Instructions: Constipation (ED), Hemorrhoids (ED), Sitz Bath (DC) Discharge Date/Time: 08/18/22 13:38
== END 2022-08-18 13:38 | disposition home or self-care (01) ==
LOC: HO.ED 23:01 → HO.EDOVER 23:26 → HO.IMC 08-14 13:50
PROVIDERS: Physician Assistant; Admitting Provider Surgery; Emergency Provider Emergency Medicine Emergency Medical Services; PCP Family Medicine; Visit Provider Surgery
PROC: (CPT 46320; principal; 2022-08-16 11:30)
DX: K64.5 Perianal venous thrombosis (principal); K59.00 Constipation, unspecified; R10.9 Unspecified abdominal pain; Z20.822 Contact with and (suspected) exposure to COVID-19; E03.9 Hypothyroidism, unspecified; E50.9 Vitamin A deficiency, unspecified; E51.9 Thiamine deficiency, unspecified; E53.8 Deficiency of other specified B group vitamins; E55.9 Vitamin D deficiency, unspecified; L68.0 Hirsutism; J45.909 Unspecified asthma, uncomplicated; F43.20 Adjustment disorder, unspecified; K76.0 Fatty (change of) liver, not elsewhere classified; Z98.84 Bariatric surgery status; Z83.3 Family history of diabetes mellitus; Z79.899 Other long term (current) drug therapy
CPT/HCPCS: 46320; 36415; 74018; 74176; 80053; 81001; 81025; 83735; 84702; 85025; 87635; 88304; 96372; 96374; 96375; 99222; 99285; J0131; J1170; J1200; J1885; J2250; J2270; J2405; J2765; J2795; J3010

== ENCOUNTER → 2022-08-30 08:39 | Outpatient (BNVA) | payer OTHER, MEDICAID, SELFPAY | PROVIDERS: PCP Family Medicine; Visit Provider Surgery | DX: Z13.89 Encounter for screening for other disorder (principal) ==

== ENCOUNTER 2022-12-12 11:43 | Outpatient (AMB) | payer OTHER, MEDICAID, SELFPAY ==
[2022-12-12 11:52] VITALS: BP 124/68; PULSE 74; RESP 12; TEMP 36.7; O2SAT 99; BMI 28.5
--- NOTE | 2022-12-12 11:52 | MHC.PC.OV ---
Vital Signs 12/12/22 11:52 Height 5 ft 3.5 in Weight 163 lb 3 oz BMI 28.5 BP 124/68 Blood Pressure Location Rt brachial Position Sitting Respiration 12 Pulse 74 Pulse Source Pulse Oximeter Temp 98.1 F Temp Source Temporal Artery Scan Pulse Oximetry (%) 99 Oxygen Delivery Method Room Air Intake Visit Reasons: 2 wks anxiety/depression Service Delivery Management Consultant Required: No Accompanied by: Self / Same As Patient Allergies No Known Allergies [No Known Allergies*] Allergy (Verified 12/12/22 12:24) Medication List - Last Reconciled 12/12/22 by Shad Jose CNP albuterol sulfate 90 mcg/actuation 2 puffs inhalation Q6H PRN 30 days levothyroxine 75 mcg PO DAILY 30 days sertraline 50 mg PO DAILY 30 days Tobacco use date assessed: 12/12/22 Dental Screening Dental Screen Date: 12/12/22 Did you have a dental visit in the last 12 months?: Yes Did you have a dental problem in the last 6 months where you did not have access to dental care?: No Was dental information given to patient?: Patient has dentist HPI HPI Comments History of Present Illness Details 27-year-old female presents for anxiety and depression follow-up. She was evaluated in October and was prescribed sertraline. She attributed her anxiety and depression symptoms to work related stressors. [place] paperwork was completed for her to have 2 months off from work so she could find another job. She notes she has been taking sertraline as prescribed with some improvement of her anxiety and depression symptoms. She states she has applied to multiple jobs. Also, conditions at her current job is improving. She states she is on a wait list for a therapist. She requests additional 2 weeks extension of FMLA. She admits to taking levothyroxine as prescribed. [facility] Medical History Adjustment disorder, unspecified Asthma BMI 37.0-37.9, adult BMI 38.0-38.9,adult BMI over 35 COVID-19 vaccine series completed Hirsutism History of postoperative nausea Hypothyroidism Morbid obesity Obesity Obesity (BMI 30-39.9) Steatosis, liver Syncope Vitamin A deficiency Vitamin B1 deficiency Vitamin B12 deficiency Vitamin D deficiency Surgical History H/O hemorrhoidectomy (08/16/22) History of sleeve gastrectomy Hx of section Hx of knee surgery Status post hemorrhoidectomy Family History Father Diabetes mellitus HTN (hypertension) Mother Hirsutism Low TSH level Elevated cortisol level Social History Household Members: Spouse and Children Housing: House Are you a primary intensive care medicine specialist to a significant other at home: No Do you presently have visiting nurse or other home services: No Patient Tobacco Use Status: Never used Tobacco e-Cigarette/Vaping Use: Never Used service: No Current occupational status: employed 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 1. Little interest or pleasure in doing things: more than half the days 2. Feeling down, depressed, or hopeless: more than half the days 3. Trouble falling or staying asleep, or sleeping too much: more than half the days 4. Feeling tired or having little energy: more than half the days 5. Poor appetite or overeating: several days 6. Feeling bad about yourself - or that you are a failure or have let yourself or your family down: more than half the days 7. Trouble concentrating on things, such as reading the newspaper or watching television: several days 8. Moving or speaking so slowly that other people could have noticed. Or the opposite - being so fidgety or restless that you have been moving around a lot more than usual: several days 9. Thoughts that you would be better off or of hurting yourself in some way: not at all Total score: 13 Depression Screening Interpretation: Positive Depression Screening Follow-up: Existing condition and In treatment Source: Developed by Drs. Sahil England, Carol Martinez, Roberto Rose and colleagues, with an educational cathie from [employer]. NEHAL-7 AMB Questionnaire NEHAL-7 Date NEHAL - 7 assessed: 12/12/22 Feeling nervous, anxious, or on edge: 2 = More than half the days Not being able to stop or control worryin = More than half the days Worrying too much about different things: 2 = More than half the days Trouble relaxin = More than half the days Being so restless that it is hard to sit still: 2 = More than half the days Becoming easily annoyed or irritable: 3 = Nearly every day Feeling afraid as if something awful might happen: 2 = More than half the days Total NEHAL-7 score (0-4 normal; 5-9 mild; 10-14 moderate; 15-21 severe): 15 Source: Developed by Drs. Sahil England, Carol Martinez, Roberto Rose and colleagues, with an educational cathie from [employer]. Review of Systems Const Details: Const Denies chills, Denies fatigue, Denies fever(s), Denies headache(s) and Denies weakness ENT Denies dizziness and Denies headache(s) Card Denies chest pain, Denies lightheadedness, Denies dyspnea and Denies other (Palpitations) Resp Denies cough, Denies dyspnea, Denies wheezing and Denies other ( shortness of breath) GI Denies abdominal pain, Denies melena, Denies hematochezia, Denies change in bowel habits, Denies dyspepsia and Denies nausea Denies hematuria and Denies dysuria Musc Denies abnormal gait, Denies myalgias, Denies arthralgias, Denies numbness and Denies tingling Skin/Breast Denies rash, Denies unusual bruising and Denies wounds Neuro Denies abnormal gait, Denies dizziness, Denies headache(s), Denies memory loss, Denies numbness, Denies Sensory deficit (Neuro), Denies tingling and Denies weakness Psych Reports anxiety and Reports depression, Denies memory loss Endo Denies fatigue Aller/Immun Denies wheezing Physical exam (Primary Care) Vital Signs: Last Vital Signs Temp 98.1 F 12/12/22 11:52 Pulse 74 12/12/22 11:52 Resp 12 12/12/22 11:52 BP 124/68 12/12/22 11:52 Pulse Ox 99 12/12/22 11:52 Oxygen Delivery Method Room Air 12/12/22 11:52 BMI result Body Mass Index 28.5 Tobacco/Smoking Status: Tobacco use Status Tobacco use date assessed 12/12/22 12/12/22 12:01 Patient Tobacco Use Status Never used Tobacco 12/12/22 12:01 e-Cigarette/Vaping Use Never Used 12/12/22 12:01 PHQ-9: PHQ-9 Score PHQ-9: Total score 13 12/12/22 12:01 Depression Screening Interpretation: Positive Depression Screening Follow-up: Existing condition and In treatment Const Other: General: no acute distress and well developed Nutritional Appearance: well nourished Orientation/consciousness: patient oriented x3 HENMT Head: Yes normocephalic and Yes atraumatic Eyes General: appearance normal, both eyes and all related structures Pupils: Equal, round and reactive pupils present EOM: EOMs intact bilaterally Resp Effort & Inspection: normal respiratory effort Auscultation: clear to auscultation bilaterally Cardio Rate: regular rate Rhythm: regular rhythm Heart sounds: S1 normal heart sound present, S2 normal heart sound present, no gallops, no murmurs and no rubs GI Palpation (GI): No Abdominal aortic bruit present, Soft to palpation, nontender, No hepatosplenomegaly present and No Rebound tenderness present Auscultation: normal bowel sounds General: Yes no CVA tenderness Back/Spine/Pelvis Back: no CVA tenderness Cervical Spine: cervical ROM normal and No Cervical spine tenderness Thoracic/Lumbar Spine: thoraco-lumbar ROM normal, No pain with thoraco-lumbar ROM, No thoracic spinal tenderness and No lumbar spinal tenderness Extrem General: Yes normal to inspection, No edema and No calf tenderness Skin General: warm and dry. Normal skin color. Normal skin turgor Lesions: no lesions Rashes: no rashes Trauma: no lacerations or abrasions Wounds: no wounds Nails: normal Neuro General: patient oriented x3, gait normal and no focal neuro deficit Cranial nerves: Yes Equal, round and reactive pupils present Cognition (Neuro): normal cognition Gait exam (Neuro): Normal gait present Sensory Exam: No Sensory deficit (Neuro) Psych Appearance: grossly normal Affect: normal affect Attitude: cooperative Thought process: Normal thought process present Assessment and Plan Assessment & Plan (1) Anxiety and depression: Code(s): F41.9 - Anxiety disorder, unspecified; F32.A - Depression, unspecified Plan: PHQ-9 and NEHAL-7 scores revealed moderate depression and severe anxiety respectively Continue to take sertraline as prescribed Routine exercise encouraged FMLA extended for additional 2 weeks Follow-up with PCP in 1-2 months Return sooner with worsening or new symptoms Verbalized understanding and agreed with treatment plan. 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 Advised to get blood work done before next visit Continue to take levothyroxine as prescribed Follow-up with PCP in 1-2 months Verbalized understanding and agreed with treatment plan. 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
== END 2022-12-12 13:00 | disposition home or self-care (01) ==
PROVIDERS: PCP Family Medicine; Visit Provider Nurse Practitioner Family
DX: F41.9 Anxiety disorder, unspecified (principal); F32.A Depression, unspecified; E03.8 Other specified hypothyroidism; E06.3 Autoimmune thyroiditis
CPT/HCPCS: 99213

== ENCOUNTER 2023-02-18 13:52 | Outpatient (AMB) | payer OTHER, MEDICAID, SELFPAY ==
--- NOTE | 2023-02-18 14:00 | A.OFFPC_ITS ---
Vital Signs 02/18/23 14:01 Height 5 ft 3.5 in Weight 167 lb 2 oz BMI 29.1 BP 110/62 Blood Pressure Location Lt brachial Position Sitting Pulse 71 Pulse Source Pulse Oximeter Pulse Oximetry (%) 99 Oxygen Delivery Method Room Air Intake Visit Reasons: Return to work paperwork Intake Note: Patient is here for back to work paperwork. Allergies No Known Allergies [No Known Allergies*] Allergy (Verified 02/18/23 14:11) Tobacco use date assessed: 02/18/23 Dental Screening Dental Screen Date: 02/18/23 Did you have a dental visit in the last 12 months?: Yes Did you have a dental problem in the last 6 months where you did not have access to dental care?: No Was dental information given to patient?: Patient has dentist HPI Return to work paperwork HPI Details Patient?presents?to?discuss?return?to?work Had?seen?[place]?in?October?and?again?in?November?for?anxiety?a nd?was?kept?out?of?work?on?FMLA. Now?feeling?ready?to?return?to?work. Also?has?had?elevated?TSH?level.??She?was?asked?to?get?her?labs?drawn?but?has?no t?done?this?yet.??She?will?get?them?drawn?this?week?and?we?can?follow-up soon. [facility] Medical History Syncope Hirsutism Steatosis, liver BMI over 35 History of postoperative nausea Asthma COVID-19 vaccine series completed BMI 37.0-37.9, adult Obesity Vitamin A deficiency Vitamin B1 deficiency Adjustment disorder, unspecified Vitamin B12 deficiency BMI 38.0-38.9,adult Morbid obesity Vitamin D deficiency Obesity (BMI 30-39.9) Hypothyroidism Surgical History Status post hemorrhoidectomy H/O hemorrhoidectomy (08/16/22) History of sleeve gastrectomy Hx of section Hx of knee surgery Family History Father Diabetes mellitus HTN (hypertension) Mother Hirsutism Low TSH level Elevated cortisol level Social History Household Members: Spouse and Children Housing: House Are you a primary residential caregiver to a significant other at home: No Do you presently have visiting nurse or other home services: No Patient Tobacco Use Status: Never used Tobacco e-Cigarette/Vaping Use: Never Used service: No Current occupational status: employed 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 Sahil England, Carol Martinez, Roberto Roes and colleagues, with an educational cathie from [employer]. Review of Systems Const Denies chills, Denies fatigue, Denies fever(s), Denies headache(s) and Denies weakness ENT Denies dizziness and Denies headache(s) Card Denies chest pain, Denies lightheadedness, Denies dyspnea and Denies other (Palpitations) Resp Denies cough, Denies dyspnea, Denies wheezing and Denies other ( shortness of breath) Musc Denies numbness and Denies tingling Neuro Denies dizziness, Denies headache(s), Denies numbness, Denies tingling, Denies paresthesias and Denies weakness Psych Denies anxiety and Denies depression Endo Denies fatigue Aller/Immun Denies wheezing Physical exam (Primary Care) Vital Signs: Last Vital Signs Pulse 71 02/18/23 14:01 BP 110/62 02/18/23 14:01 Pulse Ox 99 02/18/23 14:01 Oxygen Delivery Method Room Air 02/18/23 14:01 BMI result Body Mass Index 29.1 Tobacco/Smoking Status: Tobacco use Status Tobacco use date assessed 02/18/23 02/18/23 14:12 Patient Tobacco Use Status Never used Tobacco 02/18/23 14:03 e-Cigarette/Vaping Use Never Used 02/18/23 14:03 Const General: no acute distress and well developed Nutritional Appearance: well nourished Orientation/consciousness: patient oriented x3 HENMT Head: Yes normocephalic and Yes atraumatic Eyes General: appearance normal, both eyes and all related structures Pupils: Equal, round and reactive pupils present EOM: EOMs intact bilaterally Resp Effort & Inspection: normal respiratory effort Auscultation: clear to auscultation bilaterally Cardio Rate: regular rate Rhythm: regular rhythm Heart sounds: S1 normal heart sound present, S2 normal heart sound present, no gallops, no murmurs and no rubs Neuro General: patient oriented x3 and gait normal Cranial nerves: Yes Equal, round and reactive pupils present Psych Affect: normal affect Assessment and Plan Assessment & Plan (1) Anxiety and depression: Code(s): F41.9 - Anxiety disorder, unspecified; F32.A - Depression, unspecified Plan: Now?ready?to?return?to?work. Paperwork?filled?out?and?patient?may?return?to?work?without?restrictions. 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
[2023-02-18 14:01] VITALS: BP 110/62; PULSE 71; O2SAT 99; BMI 29.1
== END 2023-02-18 14:38 | disposition home or self-care (01) ==
PROVIDERS: PCP Family Medicine; Visit Provider Family Medicine
DX: F41.9 Anxiety disorder, unspecified (principal); F32.A Depression, unspecified; E03.8 Other specified hypothyroidism; E06.3 Autoimmune thyroiditis
CPT/HCPCS: 99212

== ENCOUNTER 2023-02-20 09:33 | Outpatient (REF) | payer OTHER, MEDICAID, SELFPAY ==
[2023-02-20 11:00] LABS: TSH reflex Free T4 3.86 uIU/mL (0.32-4.0); Thyroid Stimulating Hormone 3.86 uIU/mL (0.32-4.0)
[2023-02-20 11:01] LABS: Free T4 (Free Thyroxine) 0.97 ng/dL (0.71-1.85)
== END 2023-02-20 09:34 | disposition home or self-care (01) ==
LOC: HO.10HDL 09:33
PROVIDERS: Internal Medicine; Absent Provider Internal Medicine Endocrinology, Diabetes & Metabolism; Visit Provider Nurse Practitioner Family
DX: E03.9 Hypothyroidism, unspecified (principal); E03.8 Other specified hypothyroidism; E06.3 Autoimmune thyroiditis
CPT/HCPCS: 36415; 84439; 84443

== ENCOUNTER 2023-02-25 13:21 | Outpatient (AMB) | payer OTHER, MEDICAID, SELFPAY ==
--- NOTE | 2023-02-25 13:18 | MHC.PC.OV ---
Intake Visit Reasons: f/u labs Intake Note: Patient is following up on lab today. Allergies No Known Allergies [No Known Allergies*] Allergy (Verified 02/25/23 13:19) Tobacco use date assessed: 02/25/23 HPI f/u labs HPI Details Telemedicine?encounter?to?follow-up?hypothyroidism Had?not?had?her?thyroid?levels?checked?in?quite?some?time?and?they?were?abnormal?at?prior?check. Had?labs?drawn?this?past?week?and?TSH?and?free?T4?are?within?normal?limits?on?levothyroxine?75?mcg?daily?which?he?is?taking?as?prescribed. No?longer?taking?sertraline?and?she?says?she?no?longer?feels?depressed?or?anxious.??She?says?she?was?going?through?a?rough?time?but?doing?well?now. No?other?complaint [facility] Medical History Syncope Hirsutism Steatosis, liver BMI over 35 History of postoperative nausea Asthma COVID-19 vaccine series completed BMI 37.0-37.9, adult Obesity Vitamin A deficiency Vitamin B1 deficiency Adjustment disorder, unspecified Vitamin B12 deficiency BMI 38.0-38.9,adult Morbid obesity Vitamin D deficiency Obesity (BMI 30-39.9) Hypothyroidism Surgical History Status post hemorrhoidectomy H/O hemorrhoidectomy (08/16/22) History of sleeve gastrectomy Hx of section Hx of knee surgery Family History Father Diabetes mellitus HTN (hypertension) Mother Hirsutism Low TSH level Elevated cortisol level Social History Household Members: Spouse and Children Housing: House Are you a primary pediatric acute care unit nurse to a significant other at home: No Do you presently have visiting nurse or other home services: No Patient Tobacco Use Status: Never used Tobacco e-Cigarette/Vaping Use: Never Used service: No Current occupational status: employed 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 Sahil England, Carol Martinez, Roberto Rose and colleagues, with an educational cathie from [employer]. Review of Systems Const Denies chills, Denies fatigue, Denies fever(s), Denies headache(s) and Denies weakness ENT Denies dizziness and Denies headache(s) Card Denies chest pain, Denies lightheadedness, Denies dyspnea and Denies other (Palpitations) Resp Denies cough, Denies dyspnea, Denies wheezing and Denies other ( shortness of breath) Musc Denies numbness and Denies tingling Neuro Denies dizziness, Denies headache(s), Denies numbness, Denies tingling, Denies paresthesias and Denies weakness Psych Details: Resolve Denies anxiety and Denies depression Endo Denies fatigue Aller/Immun Denies wheezing Physical exam (Primary Care) Tobacco/Smoking Status: Tobacco use Status Tobacco use date assessed 02/25/23 02/25/23 13:20 Patient Tobacco Use Status Never used Tobacco 02/25/23 13:20 e-Cigarette/Vaping Use Never Used 02/25/23 13:20 Const Other: Telemedicine?encounter.??Audio?only. 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 Removed?sertraline?from?her?med?list She?can?let?me?know?if?she?has?any?problems?again. Orders: Orders Complete Blood Count Auto Diff Today Z00.00 - Encounter for general adult medical examination without abnormal findings UA and rflx microscopic Today Z00.00 - Encounter for general adult medical examination without abnormal findings Triiodothyronine T3 Total Today E03.9 - Hypothyroidism, unspecified Thyroid Stimulating Hormone Today E03.9 - Hypothyroidism, unspecified Comprehensive [place]. 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
== END 2023-02-25 14:00 ==
LOC: HO.HMGFM 13:21
PROVIDERS: PCP Family Medicine; Visit Provider Family Medicine
DX: E03.8 Other specified hypothyroidism (principal); E06.3 Autoimmune thyroiditis; F41.9 Anxiety disorder, unspecified; F32.A Depression, unspecified
CPT/HCPCS: 99212

== ENCOUNTER 2024-09-16 13:01 | Outpatient (AMB) | payer OTHER, MEDICAID, SELFPAY ==
--- NOTE | 2024-09-16 13:02 | A.OFFVIS_ITS ---
Vital Signs 09/16/24 13:08 Height 5 ft 3.5 in Weight 171 lb BMI 29.8 BP 98/62 Blood Pressure Location Rt brachial Position Sitting Pulse 79 Pulse Source Pulse Oximeter Pulse Oximetry (%) 98 Oxygen Delivery Method Room Air Intake Visit Reasons: Hypothyroidism/Andrea/Graves/ OK per Dr. 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 Otherwise history significant for sleeve gastrectomy in 2020. 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 Started levothyroxine in 2015. Restarted levothyroxine 75 mcg daily last week Was off therapy since JanuaryFebruary 2024 Tiredness. Gained 7 lbs in the past 2 years. always feeling cold. Constipation mostly takes stool softeners. No palpitations no tremors. Has an IUD, doesnt get periods. No vision chnages, no increase sweating. Very active with kids' sports , walks an hour daily . Patient denies any difficulty swallowing, pain on swallowing or voice changes or difficulty breathing. Patient denies any history of childhood neck radiation. Denies having ever used lithium, amiodarone or biotin supplements. Patient denies any family history of thyroid cancer. Mother has Graves disease. Hirsutism She is also complaining of hirsutism of the lips and chin, extensive workup was done in 2020 for hyperandrogenism which was within normal limits, a.m. cortisol low but cosyntropin stim testing was within normal limits. She has a Family history of PCOS in her Mother and also autoimmune thyroid disease in her Mother. Current BMI 29.8 kg per m2, current weight 171 lb Has a history of obesity status post sleeve gastrectomy in 2020. No history of hypertension or diabetes. Physical exam General: sitting comfortably in no acute distress HEENT: normocephalic/atraumatic, Neck: supple, symmetrical, no thyromegaly , Cardiac: normal heart sounds Pulm: normal breath sounds B/L, no added breath sounds Abd: not distended Extremities: no edema, no signs of myxedema Neuro: AAO x3, Speech: normal, no facial droop, moving all 4 extremities Laboratory Tests 05/02/21 02/20/23 08:27 09:40 TSH 3.86 Free T4 0.97 Thyroid Stim Immunoglob <89 Thyroglobulin Antibody <1 Thyroid Peroxidase Ab 148 H TSH Receptor Ab 2.84 H US THYROID 04/03/22 CLINICAL INFORMATION: Other specified hypothyroidism. COMPARISON: Ultrasound thyroid 07/08/2018. TECHNIQUE: Linear transducer grayscale and color Doppler examination with attention to the region of the thyroid. FINDINGS: SIZE: Measurements of the thyroid lobes and nodules are given in sagittal, anteroposterior and transverse dimensions respectively. Right Thyroid Lobe: 4.7 x 1.3 x 1.0 cm, volume 3.4 mL. Previously 4.1 x 1.5 x 1.3 cm, volume 4.2 mL. Parenchyma: The gland echotexture is heterogeneous. Thyroid vascularity is increased. Left Thyroid Lobe: 4.0 x 1.2 x 1.3 cm, volume 3.0 mL. Previously 4.0 x 1.4 x 1.1 cm, volume 3.2 mL. Parenchyma: The gland echotexture is heterogeneous. Thyroid vascularity is increased. Isthmus: 0.15 cm in maximum AP dimension. Previously 0.2 cm. No focal thyroid nodule is seen. NODES: No lymphadenopathy is seen in the tissue surrounding the thyroid gland. US/US thyroid IMPRESSION: Small slightly heterogeneous hypervascular thyroid gland. No nodule seen.. [facility] Medical History Syncope Hirsutism Steatosis, liver BMI over 35 History of postoperative nausea Asthma COVID-19 vaccine series completed BMI 37.0-37.9, adult Obesity Vitamin A deficiency Vitamin B1 deficiency Adjustment disorder, unspecified Vitamin B12 deficiency BMI 38.0-38.9,adult Morbid obesity Vitamin D deficiency Obesity (BMI 30-39.9) Hypothyroidism Surgical History Status post hemorrhoidectomy H/O hemorrhoidectomy (08/16/22) History of sleeve gastrectomy Hx of section Hx of knee surgery Family History Father Diabetes mellitus HTN (hypertension) Mother Hirsutism Low TSH level Elevated cortisol level Social History Household Members: Spouse and Children Housing: House Are you a primary continuum of care manager to a significant other at home: No Do you presently have visiting nurse or other home services: No Patient Tobacco Use Status: Never used Tobacco e-Cigarette/Vaping Use: Never Used service: No Current occupational status: employed 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 Cognitive needs: No Hearing needs: No Vision needs: No Physical Exam Vital Signs: Last Vital Signs Pulse 79 09/16/24 13:08 BP 98/62 09/16/24 13:08 Pulse Ox 98 09/16/24 13:08 Oxygen Delivery Method Room Air 09/16/24 13:08 BMI result Body Mass Index 29.8 Assessment & Plan Assessment & Plan (1) Hypothyroidism: Comment: taking synthroid Code(s): E03.9 - Hypothyroidism, unspecified Category: Medical Qualifiers: Hypothyroidism type: due to Bisi's thyroiditis Qualified Code(s): E03.8 - Other specified hypothyroidism; E06.3 - Autoimmune thyroiditis Plan: Patient with a history of hypothyroidism with autoimmune thyroid disease with both TPO and TSH receptor antibodies, who was on levothyroxine 75 mcg daily up until 2023 and recently has not been adherent to therapy, however restarted levothyroxine 75 mcg daily last week. We will check labs right now to see what her thyroid hormone status is, however she will also need repeat labs in 6 weeks. Plan: -ordered TSH, free T4 and total T3 levels for now and then will need repeat labs in 6 weeks -continue levothyroxine 75 mcg daily -follow up in 3 months (2) Hirsutism: Code(s): L68.0 - Hirsutism Category: Medical Plan: She is also complaining of hirsutism of the lips and chin, extensive workup was done in 2020 for hyperandrogenism which was within normal limits, a.m. cortisol low but cosyntropin stim testing was within normal limits. Has a history of obesity status post sleeve gastrectomy in 2020. She probably has underlying PCOS, though hard to take menstrual history as she is on IUD and does not get any periods. No history of hypertension or diabetes. Currently she is using cosmetic measures for managing the hirsutism, we did discuss about spironolactone, however her blood pressure is very much on the lower side so she would not be a good candidate for this medication. I reviewed with the patient the implications of polycystic ovarian syndrome in terms of 1) reproductive health (increased risk of infertity, miscarriage), 2) metabolic issues (type 2 diabetes, hypertension, dyslipidemia, cardiovascular disease) and 3) hyperandrogenism (acne, hirsuitism, male pattern hair loss). We reviewed that weight loss in overweight woman can help improve these morbidities, but often woman with PCOS do need further assistance with fertility using metformin plus clomiphene or letrazole. She is not planning a . We discussed lifestyle modification including keeping up with her current exercise regimen as well as maintaining calorie deficit using phone apps. She is also interested in weight loss medications. She is planning to talk to her primary care physician regarding phentermine which she has tried in the past with good results. It would be important to get her thyroid function under control 1st though. Plan: -lifestyle modification for weight management as discussed above Plan I spent 30 minutes in reviewing the record, seeing the patient and documenting in the medical record. Orders: Orders Thyroid Stimulating Hormone Today E03.8 - Other specified hypothyroidism, E06.3 - Autoimmune thyroiditis Triiodothyronine T3 Total Today E03.8 - Other specified hypothyroidism, E06.3 - Autoimmune thyroiditis Free T4 (Free Thyroxine) Today E03.8 - Other specified hypothyroidism, E06.3 - Autoimmune thyroiditis Medications: New levothyroxine 75 mcg PO DAILY 90 tabs 2RF levothyroxine 75 mcg PO DAILY 90 tabs 2RF Discontinued levothyroxine Discontinued Reason: Doctor's Order 75 mcg PO DAILY 30 days 30 tabs 3RF Patient Instructions: Continue levothyroxine 75 mcg daily Do blood work today Repeat another set of blood work in 6 weeks Follow up in 3 months Coding Level of Care Code Est Pt Level 4 (40532) Diagnoses Hypothyroidism due to Bisi's thyroiditis E03.8; E06.3 Hypothyroidism type: due to Bisi's thyroiditis Hirsutism L68.0 Time Spent (min) 30
[2024-09-16 13:08] VITALS: BP 98/62; PULSE 79; O2SAT 98; BMI 29.8
== END 2024-09-16 15:42 | disposition home or self-care (01) ==
LOC: HO.ENCR 13:02
PROVIDERS: PCP Family Medicine; Visit Provider Student in an Organized Health Care Education/Training Program
DX: E03.8 Other specified hypothyroidism (principal); E06.3 Autoimmune thyroiditis; L68.0 Hirsutism
CPT/HCPCS: 99214

== ENCOUNTER 2024-09-17 08:25 | Outpatient (REF) | payer OTHER, SELFPAY ==
[2024-09-17 10:38] LABS: Free T4 (Free Thyroxine) 0.68 ng/dL (0.71-1.85); Thyroid Stimulating Hormone 11.22 uIU/mL (0.32-4.0)
[2024-09-18 06:49] LABS: Triiodothyronine T3 Total 93 ng/dL (76-181)
== END 2024-09-17 08:26 | disposition home or self-care (01) ==
LOC: HO.10HDL 08:25
PROVIDERS: Visit Provider Student in an Organized Health Care Education/Training Program
DX: E03.8 Other specified hypothyroidism (principal); E06.3 Autoimmune thyroiditis
CPT/HCPCS: 36415; 84439; 84443; 84480

== ENCOUNTER 2025-02-23 13:53 | Outpatient (AMB) | payer OTHER, SELFPAY ==
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
[2025-02-23 14:00] VITALS: BP 134/74; PULSE 93; RESP 12; TEMP 36.2; O2SAT 99; BMI 28.7
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
== END 2025-02-23 15:04 | disposition home or self-care (01) ==
LOC: HO.HMCFM 13:53
PROVIDERS: PCP Family Medicine; Visit Provider Nurse Practitioner Family
DX: F41.9 Anxiety disorder, unspecified (principal); F32.A Depression, unspecified; F43.0 Acute stress reaction

== ENCOUNTER 2025-02-23 14:49 | Outpatient (AMB) | payer OTHER, SELFPAY ==
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
== END 2025-02-23 16:38 | disposition home or self-care (01) ==
PROVIDERS: PCP Family Medicine; Visit Provider Nurse Practitioner Family
DX: M54.50 Low back pain, unspecified (principal); V89.2XXA Person injured in unspecified motor-vehicle accident, traffic, initial encounter; M54.9 Dorsalgia, unspecified; Z04.3 Encounter for examination and observation following other accident

== ENCOUNTER 2025-03-09 14:49 | Outpatient (AMB) | payer OTHER, SELFPAY ==
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
== END 2025-03-09 17:05 | disposition home or self-care (01) ==
LOC: HO.HMCFM 14:50
PROVIDERS: PCP Family Medicine; Visit Provider Nurse Practitioner Family
DX: M54.9 Dorsalgia, unspecified (principal); M54.50 Low back pain, unspecified; V89.2XXA Person injured in unspecified motor-vehicle accident, traffic, initial encounter